=== PATIENT | female | born 1950 | race Caucasian/White ===

== ENCOUNTER → 2016-04-21 09:46 | Outpatient (CLI) | payer MEDICARE ==
[~2016-04-21 09:46] MED LIST: AVAPRO150 MG PO; BAYER CHEWABLE81 MG PO; COMBIVENT RESPIM4 GM INH; CYMBALTA60 MG PO; MULTIPLE VITAMI1 TA1 PO; NITROSTAT0.4 MG SL; OMEPRAZOLE20 M1 PO; PERCOCET 5-3251 TAB PO; PROBIOTIC1 EAC1 PO; PROTONIX40 MG PO; SYMBICORT 16010.2 GM INH; SYNTHROID88 MCG PO; TENORMIN100 MG PO; ULTRAM50 MG PO; ZETIA10 MG PO; ZOFRAN4 MG PO; ZYRTEC10 MG PO
== END | disposition home or self-care (01) ==
LOC: D.RAD 09:46
DX: K56.60 Unspecified intestinal obstruction (principal); K59.00 Constipation, unspecified

== ENCOUNTER → 2016-04-23 13:03 | Outpatient (CLI) | payer MEDICARE | END | disposition home or self-care (01) | LOC: D.CT 13:03 | DX: R10.31 Right lower quadrant pain (principal); R74.8 Abnormal levels of other serum enzymes ==

== ENCOUNTER 2016-04-30 11:17 | Inpatient (IN) | payer MEDICARE ==
[~2016-04-30] VITALS: Ht 165.1 cm; Wt 83.0 kg
[~2016-04-30 11:17] MED LIST changes: -PERCOCET 5-3251 TAB PO; -PROTONIX40 MG PO; -ZOFRAN4 MG PO
[2016-04-30] MEDS ORDERED: PERCOCET 5-3251 TAB PO (11:50)
[2016-04-30] MEDS ORDERED: ZOFRAN4 MG PO (11:51)
[2016-04-30 12:00] VITALS: BP 190/97; BMI 30.5
[2016-04-30 12:28] LABS: BASOPHILS 0.3 % (0.0-2.0); EOSINOPHILS 1.7 % (0-7); HEMATOCRIT 40.7 % (36.0-48.0); HEMOGLOBIN 13.7 g/dL (12-16); IMMATURE GRANULOCYTES 0.3 % (0-5); LYMPHOCYTES 33.2 % (15-50); MCHC 33.7 g/dL (31.0-37.0); MCV 89.3 fL (80.0-100.0); MEAN PLATELET VOLUME 9.4 fL (7.4-10.4); MONOCYTES 10.3 % (2-11); NEUTROPHILS 54.2 % (40-80); PLATELET COUNT 202 10x3/uL (130-400); RBC 4.56 10x6/uL (4.00-5.40); RDW 12.7 % (11.5-14.5); WBC 7.8 10x3/uL (4.8-10.8)
[2016-04-30 12:57] LABS: ALBUMIN 3.8 g/dL (3.4-5.0); ANION GAP 12.3 mmol/L (8-16); BILIRUBIN - TOTAL 0.42 mg/dL (0.2-1.3); CALCIUM 9.2 mg/dL (8.5-10.1); CARBON DIOXIDE 27.6 mmol/L (21.0-32.0); POTASSIUM - SERUM 3.9 mmol/L (3.5-5.1); PROTEIN - SERUM 7.2 g/dL (6.4-8.2)
--- NOTE | 2016-04-30 14:17 | NUR ---
PT ADMITTED. NG INSERTED PER RIGHT NARE WITHOUT DIFFICULTY-BLEEDING NOTED-PT STATES I HAVE NOSE BLEEDS SOMETIMES. DRAINING BROWN FLUID. IV SITED X 2 ATTEMPTED TO LEFT FOREARM. CONNECTED TO FLUIDS. PT ORDERS REVIEWED WITH PT AND SPOUSE AND VERIFIED UNDERSTANDING. CALL LIGHT IN REACH
--- NOTE | 2016-04-30 14:21 | NUR ---
SCD ON BILAT
[2016-04-30 16:35] VITALS: BP 180/105
--- NOTE | 2016-04-30 19:10 | NUR ---
BEDSIDE REPORT RECEIVED AND CARE OF PT ASSUMED. PT OUT OF ROOM AT THIS TIME TO HAVE MRI PERFORMED.
[2016-04-30 20:00] VITALS: BP 171/95
--- NOTE | 2016-04-30 20:15 | NUR ---
PT RETURNED FROM MRI. RE-CONNECTED NG TUBE AND FLUSHED WITH 60 ML OR WATER. RE-CONNECTED IV FLUIDS. WILL CONTINUE TO MONITOR FOR NEEDS.
--- NOTE | 2016-04-30 20:24 | NUR ---
HS MEDICATIONS GIVEN. WILL CONTINUE TO MONITOR FOR NEEDS.
--- NOTE | 2016-04-30 21:48 | CN ---
PATIENT NAME:BLOSSOM ALMANZA MEDICAL RECORD: [id number] : 48 LOCATION:[id number] ADMIT DATE: 04/30/16 ACCOUNT: [id number] CONSULTING PHYSICIAN: WAI WHITLEY MD REFERRING PHYSICIAN: ROBBIE DUMONT MD DATE OF CONSULTATION: 04/30/2016 Surgical Consultation REASON FOR CONSULTATION: Vomiting and abdominal pain. HISTORY OF PRESENT ILLNESS: Ms. Almanza is a 66-year-old female, who was admitted from her primary care doctor's office this morning with abdominal pain, severe epigastric pain and vomiting. The patient states that she has been having this recurrent, severe right upper quadrant and epigastric pain for the last several weeks. She saw her primary care physician a couple of weeks ago. She had a CT scan performed a week ago, which showed no acute abnormalities, but her lab work at that time revealed an elevated lipase by report, but no inflammatory process. No evidence of pancreatitis or biliary obstruction. The patient says the pain is constant and it radiates to her back. She has nausea and vomiting. She has had constipation. Her last bowel movement was last night. She denies any hematemesis. She denies any melena or hematochezia. She denies any dysuria. She had an EGD performed 3 or 4 years ago, which showed some reflux esophagitis by report. She also had a colonoscopy. She says she had a couple of benign polyps. This was performed in [place]. She had lab work today at the office, which again revealed a recurrently elevated lipase. PAST MEDICAL HISTORY: Hypothyroidism, hypertension, depression, gastroesophageal reflux disease, arthritis, chronic back pain, asthma. PAST SURGICAL HISTORY: Hysterectomy, laparoscopic appendectomy, tonsillectomy. She has had knee and shoulder surgery. SOCIAL HISTORY: She is a former smoker. She drinks alcohol socially. FAMILY HISTORY: Denies any family history of cardiac disease. She has several family members on her mother's side who of smoker-related lung cancer. ALLERGIES: PENICILLIN, CODEINE, MEDROL, SINGULAR, NORCO, PHENERGAN, NSAIDS. MEDICATIONS: Include Synthroid, Avapro, atenolol, Ventolin, albuterol, Nitrostat, tramadol, Zofran, Percocet, aspirin, Cymbalta, omeprazole, Zetia and Zyrtec. REVIEW OF SYSTEMS: A 12-point review of systems was obtained, pertinent positive and negative as per the HPI. PHYSICAL EXAMINATION: VITAL SIGNS: Temperature 98.4, heart rate 64, respirations 18, blood pressure 190/97, satting 99% on room air. GENERAL: Well-developed, well-nourished female, in moderate distress. EYES: Extraocular muscles intact. Sclerae are anicteric. EARS, NOSE AND THROAT: Normal dentition. Mucous membranes dry. CARDIOVASCULAR: Normal sinus rhythm. LUNGS: Clear auscultation bilaterally. CONSULT REPORT [id number] CAMIBLOSSOM STACI ABDOMEN: Soft. She is moderately tender to palpation with positive rebound and guarding. Hypoactive bowel sounds. No palpable hernia defects. SKIN: Warm and dry with normal turgor. EXTREMITIES: She is neurovascularly intact. Mild lower extremity edema. NEUROLOGIC: GCS of 15 with no focal deficit. LABORATORY DATA: Reviewed. Please see electronic medical record for full list of laboratory values. Lipase is mildly elevated ____, amylase 48. . IMAGING: CT abdomen and pelvis from 04/23/2016, again images personally reviewed, which showed no acute inflammatory process. There is no evidence of ____. There is minimal dilatation of the biliary system. The patient is status post cholecystectomy. IMPRESSION: A 66-year-old female with abdominal pain and recurrent elevated lipase consistent with pancreatitis. PLAN: 1. The patient admitted to med-surg. 2. NG tube is in place, continue to low intermittent wall suction. 3. IV fluid resuscitation. 4. IV narcotics for pain control. 5. GI consultation for evaluation of pancreatitis, may be medication related. 6. Reevaluate GI consult for evaluation of possible upper endoscopy. 7. IV PPIs. Also, we will order MRCP. TRANSINT:[id number] Voice Confirmation ID: [id number] DOCUMENT ID: [id number] WAI WHITLEY MD at 2148 CC: [id number] DICTATION DATE: 04/30/16 1510 WINDOWS SOFTWARE ENGINEER: 04/30/162003 ADM IN [facility] [address] [place] [address]
--- NOTE | 2016-04-30 22:04 | NUR ---
GAVE ZOFRAN IVP PER PRN ORDER, PER PT REQUEST FOR NAUSEA. WILL CONTINUE TO MONITOR FOR NEEDS.
[2016-05-01 01:00] VITALS: BP 194/99
[2016-05-01 05:00] VITALS: BP 174/88
--- NOTE | 2016-05-01 05:02 | NUR ---
ALL NEEDS MET DURING SHIFT. CONTINUE PLAN OF CARE.
[2016-05-01 05:34] LABS: BASOPHILS 0.1 % (0.0-2.0); EOSINOPHILS 1.4 % (0-7); HEMATOCRIT 40.4 % (36.0-48.0); HEMOGLOBIN 13.5 g/dL (12-16); IMMATURE GRANULOCYTES 0.3 % (0-5); LYMPHOCYTES 31.5 % (15-50); MCH 29.7 pg (26.0-34.0); MCHC 33.4 g/dL (31.0-37.0); MCV 88.8 fL (80.0-100.0); MEAN PLATELET VOLUME 9.4 fL (7.4-10.4); NEUTROPHILS 57.7 % (40-80); PLATELET COUNT 206 10x3/uL (130-400); RBC 4.55 10x6/uL (4.00-5.40); RDW 12.7 % (11.5-14.5); WBC 7.8 10x3/uL (4.8-10.8)
[2016-05-01 06:08] LABS: ALBUMIN 3.4 g/dL (3.4-5.0); ANION GAP 11.4 mmol/L (8-16); BILIRUBIN - TOTAL 0.49 mg/dL (0.2-1.3); CARBON DIOXIDE 28.2 mmol/L (21.0-32.0); POTASSIUM - SERUM 3.6 mmol/L (3.5-5.1); PROTEIN - SERUM 6.7 g/dL (6.4-8.2)
--- NOTE | 2016-05-01 07:47 | NUR ---
PATIENT ALERT/ORIENT X4. NG TUBE ON LOW INTERMISSION, RIGHT NARE. IV LW D5.5 RUNNING AT 125/CC LEFT WRIST. DENIES ANY NAUSEA/PAIN AT THIS TIME
[2016-05-01 08:11] VITALS: BP 143/97
[2016-05-01 11:40] VITALS: BP 135/81
--- NOTE | 2016-05-01 12:05 | NUR ---
IV access-#22 catheter in right hand x 1 attempt. Angelina Salmeron RN
--- NOTE | 2016-05-01 12:49 | NUR ---
RESTING QUIETLY AT PRESENT DENIES ANY NEEDS AT THIS TIME FAMILY AT BEDSIDE.
--- NOTE | 2016-05-01 13:04 | NUR ---
Patient Name: BLOSSOM ALMANZA Admission Status: Urgent Accout number: [id number] Admission Date: 04-30-2016 : 1950 Admission Diagnosis: Attending: AVN Current LOS: 1 Anticipated DC Date: 05-04-2016 Planned Disposition: Home or Self Care Primary Insurance: [facility] Discharge Planning Comments: CM MET WITH PATIENT AND SPOUSE (AGUS) REGARDING D/C NEEDS AND PLANS. PATIENT STATED SHE LIVES WITH HER SPOUSE AND HE WILL DRIVE HER HOME AT DISCHARGE. THERE ARE NO STEPS OR STAIRS AT THERE HOUSE PER SPOUSE. PATIENT STATED SHE IS INDEPENDENT WITH HER CARE AND HAS NO DME AT HOME. PATIENTS PCP IS DR. CARVER AND PHARMACY IS [facility]. PATIENT REFUSES HOME HEALTH AND HAS NO OTHER NEEDS AT THIS TIME. CM WILL CONTINUE TO FOLLOW PATIENT WITH D/C NEEDS AND PLANS. PCP DR. WEN ROB[facility]- [phone] AGUS (SPOUSE) [phone] Loan Coordinator: Betzy Egan Is the patient Alert and Oriented? Yes 0 * How many steps to enter\exit or inside your home? 0 0 * PCP DR. CARVER 0 * Pharmacy [facility] 0 * Preadmission Environment Home with Family 0 * ADLs Independent 0 * Equipment None 0 * List name and contact numbers for known caregivers / representatives who currently or will assist patient after discharge: AGUS [phone] * Community resources currently utilized None 0 * Additional services required to return to the preadmission environment? Yes 0 * Can the patient safely return to the preadmission environment? Yes 0 * Has this patient been hospitalized within the prior 30 days at any hospital? No 0 Grand Total: 0
--- NOTE | 2016-05-01 13:34 | NUR ---
PRN ZOFRAN GIVEN FOR NAUSEA
[2016-05-01 14:04] VITALS: Ht 165.1 cm; Wt 83.0 kg
--- NOTE | 2016-05-01 14:12 | NUR ---
PATIENT RESTING WELL. STATES RELIEF FROM PRN ZOFRAN
--- NOTE | 2016-05-01 14:21 | NUR ---
DR. DUMONT INTO SEE PATIENT. NEW ORDERS FOR CT OF THE ABDOMEN/PELVIS WITH CONTRAST.
--- NOTE | 2016-05-01 15:25 | NUR ---
PATIENT TAKEN DOWN FOR CT OF ABDOMEN AND PELVIS.
--- NOTE | 2016-05-01 15:54 | NUR ---
PATIENT BACK FROM CT OF ABDOMEN/PELVES. DR. BROWN HERE. NEW ORDERS RECEIVED TO REMOVE NG TUBE
--- NOTE | 2016-05-01 15:59 | NUR ---
NG TUBE REMOVED WITHOUT DIFFICULTY
[2016-05-01 16:13] VITALS: BP 168/85
--- NOTE | 2016-05-01 17:51 | NUR ---
PATIENT TOLERATING ICE CHIPS. NO C/O OF NAUSEA.
--- NOTE | 2016-05-01 20:00 | NUR ---
ASSESSMENT PER FLOWSHEET. IV PATENT RT HAND OF D51/2NS AT 125CC'S/HR. ZOFRAN GTT AT 4.7CC'S/HR. PT IS NPO EXCEPT FOR ICE CHIPS. SR UP X2 CALL LIGHT WITHIN REACH. DENIES NEEDS.
[2016-05-01 21:00] VITALS: BP 163/93
--- NOTE | 2016-05-01 22:00 | NUR ---
MEDS GIVEN PER MAY. SR UP X2 CALL LIGHT WITHIN REACH.
[2016-05-02 00:30] VITALS: BP 154/85
--- NOTE | 2016-05-02 02:45 | NUR ---
EYES CLOSED RESPIRATIONS WITH EASE AND UNLABORED.
[2016-05-02 05:00] VITALS: BP 131/83
[2016-05-02 05:16] LABS: BASOPHILS 0.2 % (0.0-2.0); EOSINOPHILS 1.6 % (0-7); HEMATOCRIT 41.2 % (36.0-48.0); HEMOGLOBIN 13.7 g/dL (12-16); IMMATURE GRANULOCYTES 0.2 % (0-5); LYMPHOCYTES 31.8 % (15-50); MCH 29.7 pg (26.0-34.0); MCHC 33.3 g/dL (31.0-37.0); MCV 89.4 fL (80.0-100.0); MEAN PLATELET VOLUME 9.9 fL (7.4-10.4); NEUTROPHILS 55.2 % (40-80); PLATELET COUNT 234 10x3/uL (130-400); RBC 4.61 10x6/uL (4.00-5.40); RDW 12.7 % (11.5-14.5); WBC 9.1 10x3/uL (4.8-10.8)
--- NOTE | 2016-05-02 05:45 | NUR ---
MEDS GIVEN PER MAR.
[2016-05-02 06:01] LABS: ALBUMIN 3.6 g/dL (3.4-5.0); ANION GAP 12.3 mmol/L (8-16); BILIRUBIN - TOTAL 0.56 mg/dL (0.2-1.3); CALCIUM 9.4 mg/dL (8.5-10.1); CARBON DIOXIDE 29.4 mmol/L (21.0-32.0); CREATININE - SERUM 1.1 mg/dL (0.6-1.3); PROTEIN - SERUM 6.5 g/dL (6.4-8.2)
[2016-05-02 06:04] LABS: POTASSIUM - SERUM 4.7 mmol/L (3.5-5.1)
--- NOTE | 2016-05-02 07:59 | NUR ---
PT ASSESSMENT COMPLETE, ALERT AND ORIENTED, IV R HAND D5 03/31 @125, PT SITING IN BED TALKING VOICES NO COMPLAINTS AT THIS TIME. CALL LIGHT WITHIN REACH, WILL CONTINUE PLAN OF CARE.
[2016-05-02 08:10] VITALS: BP 146/81
--- NOTE | 2016-05-02 09:45 | NUR ---
AMBULATING IN HALLWAY INDEPENTLY AT THIS TIME. ALERT AND ORIENTED X4 WITH RESPIRATIONS EVEN AND NON LABORED. DENIES NEEDS AT THIS TIME. WILL CONTINUE WITH PLAN OF CARE.
--- NOTE | 2016-05-02 09:56 | NUR ---
PT UP IN CHAIR AFTER WALKING AROUND THE NURSES STATION 2 TIMES, WILL CONTINUE TO MONITOR, CALL LIGHT IN REACH.
--- NOTE | 2016-05-02 11:15 | NUR ---
PT CAMILO MARLEY ORIENTED X4, VISTING WITH HER , PT BACK IN BED RESTING. PAIN AT A 5, CALL LIGHT IN REACH, WILL CONTINUE TO MONITOR
[2016-05-02 12:05] VITALS: BP 127/81
--- NOTE | 2016-05-02 12:09 | NUR ---
PT COMPLAINS OF PAIN, LEVEL 6. ADMINISTERED TYLENOL PER ORDER WILL CONTINUE TO MONITOR
--- NOTE | 2016-05-02 14:00 | NUR ---
UP IN CHAIR AT THIS TIME. AMBULATES AROUND THE ROOM INDEPENDENTLY. DENIES NEEDS. CALL LIGHT IN REACH, WILL CONTINUE WITH PLAN OF CARE.
[2016-05-02 16:14] VITALS: BP 164/83
--- NOTE | 2016-05-02 16:15 | NUR ---
AMBULATING AROUND THE HOSPITAL INDEPENDENTLY AT THIS TIME. WILL CONTINUE WITH PLAN OF CARE.
--- NOTE | 2016-05-02 18:35 | NUR ---
REMAINS UP IN THE CHAIR. DENIES NEEDS. CALL LIGHT IN REACH, WILL CONTINUE WITH PLAN OF CARE.
[2016-05-02 19:00] VITALS: BP 127/63
--- NOTE | 2016-05-03 04:07 | NUR ---
PT LAYING IN BED NO DISTRESS OBSERVED CALL LIGHT IN REACH SRX2 BED LOW AND LOCKED WILL MONITOR
[2016-05-03 06:07] LABS: BASOPHILS 0.5 % (0.0-2.0); EOSINOPHILS 2.5 % (0-7); HEMATOCRIT 37.5 % (36.0-48.0); HEMOGLOBIN 12.7 g/dL (12-16); IMMATURE GRANULOCYTES 0.3 % (0-5); MCHC 33.9 g/dL (31.0-37.0); MCV 88.7 fL (80.0-100.0); MEAN PLATELET VOLUME 9.5 fL (7.4-10.4); MONOCYTES 10.5 % (2-11); NEUTROPHILS 47.2 % (40-80); PLATELET COUNT 190 10x3/uL (130-400); RBC 4.23 10x6/uL (4.00-5.40); RDW 12.7 % (11.5-14.5)
[2016-05-03 06:10] LABS: WBC 6.4 10x3/uL (4.8-10.8)
[2016-05-03 07:32] LABS: ALBUMIN 3.1 g/dL (3.4-5.0); ANION GAP 12.7 mmol/L (8-16); BILIRUBIN - TOTAL 0.45 mg/dL (0.2-1.3); CALCIUM 8.6 mg/dL (8.5-10.1); CARBON DIOXIDE 25.8 mmol/L (21.0-32.0); CREATININE - SERUM 1.1 mg/dL (0.6-1.3); PROTEIN - SERUM 6.1 g/dL (6.4-8.2)
[2016-05-03 07:34] LABS: POTASSIUM - SERUM 3.5 mmol/L (3.5-5.1)
--- NOTE | 2016-05-03 07:50 | NUR ---
PT UP IN CHAIR, NO COMPAINTS AT THIS TIME, WILL CONTINUE TO MONITOR. CALL LIGHT IN REACH.
--- NOTE | 2016-05-03 08:53 | NUR ---
PT MEDS GIVEN PER eMAR, TYLENOL ADMINISTERED FOR PAIN LEVEL 5, ASSESSMENT COMPLETE, NO COMPLAINTS AT THIS TIME, WILL CONTINUE TO MONITOR, CALL LIGHT IN REACH,
[2016-05-03 08:55] VITALS: BP 132/73
--- NOTE | 2016-05-03 12:21 | NUR ---
PT UP IN CHAIR EATING LUNCH, NO COMPLAINTS AT THIS TIME, AT BEDSIDE. CALL LIGHT WITHIN REACH, WILL CONTINUE TO MONITOR
[2016-05-03 13:04] VITALS: BP 144/75
--- NOTE | 2016-05-03 13:28 | NUR ---
UP IN HALLWAY PER SELF. REPORTS SOME "GAS PAINS" AND WANTS TO SEE IF SHE CAN GET THINGS MOVING. DENIES NEEDS.
--- NOTE | 2016-05-03 15:00 | NUR ---
PT SITTING IN BED, AT BEDSIDE, DENIES NEEDS AT THIS TIME. WILL CONTINUE TO MONITOR.
[2016-05-03 16:03] VITALS: BP 164/80
--- NOTE | 2016-05-03 18:11 | NUR ---
PT RESTING IN BED, DENIES NEEDS, CALL LIGHT IN REACH,
[2016-05-03 20:38] VITALS: BP 144/72
[2016-05-04] VITALS: BP 139/74
[2016-05-04 04:00] VITALS: BP 114/69
[2016-05-04 05:07] LABS: BASOPHILS 0.3 % (0.0-2.0); EOSINOPHILS 3.1 % (0-7); HEMATOCRIT 35.9 % (36.0-48.0); HEMOGLOBIN 12.1 g/dL (12-16); IMMATURE GRANULOCYTES 0.3 % (0-5); LYMPHOCYTES 33.8 % (15-50); MCH 29.9 pg (26.0-34.0); MCHC 33.7 g/dL (31.0-37.0); MCV 88.6 fL (80.0-100.0); MEAN PLATELET VOLUME 9.9 fL (7.4-10.4); MONOCYTES 11.6 % (2-11); NEUTROPHILS 50.9 % (40-80); PLATELET COUNT 192 10x3/uL (130-400); RBC 4.05 10x6/uL (4.00-5.40); RDW 12.7 % (11.5-14.5); WBC 7.1 10x3/uL (4.8-10.8)
[2016-05-04 05:29] LABS: ALBUMIN 3.1 g/dL (3.4-5.0); ANION GAP 12.2 mmol/L (8-16); BILIRUBIN - TOTAL 0.5 mg/dL (0.2-1.3); CALCIUM 8.5 mg/dL (8.5-10.1); CARBON DIOXIDE 27.4 mmol/L (21.0-32.0); POTASSIUM - SERUM 3.6 mmol/L (3.5-5.1); PROTEIN - SERUM 6.3 g/dL (6.4-8.2)
--- NOTE | 2016-05-04 07:30 | NUR ---
PT SITTING UP IN BED, DENIES NEEDS, CALLL LIGHT IN REACH, WILL CONTINUE TO MONITOR
--- NOTE | 2016-05-04 08:45 | NUR ---
UP IN CHAIR INDEPENDENTLY AT THIS TIME. PAIN 4/10 ABDOMINALLY, BUT PT DENIES NEEDING ANYTHING PRN FOR PAIN. CONTINUES A CLEAR LIQUID DIET WITHOUT NAUSEA OR VOMITING. PT AMBULATES AND SELF POSITIONS IN THE BED FOR COMFORT. CALL LIGHT IN REACH, WILL CONTINUE WITH PLAN OF CARE.
[2016-05-04 09:00] VITALS: BP 160/89
[2016-05-04 12:45] VITALS: BP 156/84
--- NOTE | 2016-05-04 14:56 | NUR ---
PT STATES SHE HAD 2 LOOSE WATERY STOOLS, NO OTHER COMPLAINTS AT THIS TIME, WILL CONTINUE TO MONITOR
[2016-05-04 16:28] VITALS: BP 136/88
[2016-05-04 19:00] VITALS: BP 167/77
--- NOTE | 2016-05-04 22:56 | NUR ---
PT LAYING IN BED NO DISTRESS OBSERVED CALL LIGHT IN REACH SRX2 BED LOW AND LOCKED PT UP AMBULATORY WITH NO ASSISTANCE NEEDED RESPERATIONS EVEN AND UNLABORED ON ROOM AIR WILL MONITOR
[2016-05-05] VITALS: BP 157/79
[2016-05-05 04:00] VITALS: BP 158/86
--- NOTE | 2016-05-05 05:43 | NUR ---
PT LAYING IN BED NO DISTRESS OBSERVED CALL LIGHT IN REACH SRX2 WILL MONITOR
[2016-05-05 05:45] LABS: BASOPHILS 0.5 % (0.0-2.0); EOSINOPHILS 3.3 % (0-7); HEMATOCRIT 37.5 % (36.0-48.0); HEMOGLOBIN 12.7 g/dL (12-16); IMMATURE GRANULOCYTES 0.2 % (0-5); LYMPHOCYTES 33.7 % (15-50); MCH 29.7 pg (26.0-34.0); MCHC 33.9 g/dL (31.0-37.0); MCV 87.6 fL (80.0-100.0); MEAN PLATELET VOLUME 9.7 fL (7.4-10.4); MONOCYTES 9.7 % (2-11); NEUTROPHILS 52.6 % (40-80); PLATELET COUNT 224 10x3/uL (130-400); RBC 4.28 10x6/uL (4.00-5.40); RDW 12.8 % (11.5-14.5); WBC 6.6 10x3/uL (4.8-10.8)
[2016-05-05 06:25] LABS: ALBUMIN 3.3 g/dL (3.4-5.0); BILIRUBIN - TOTAL 0.5 mg/dL (0.2-1.3); CALCIUM 8.8 mg/dL (8.5-10.1); PROTEIN - SERUM 6.7 g/dL (6.4-8.2)
--- NOTE | 2016-05-05 07:20 | NUR ---
THIS PATIENT IS AWAKE AND ALERT, SITTING UP IN HER BED, SEMI FOWLERS. SHE UNDERSTANDS HER PLAN OF CARE AND DENIES NEEDS AT THIS TIME. SHE UNDERSTANDS THAT SHE IS HAVING THE EGD DUE TO SOME THICKENING IN THE INTESTINAL WALL AT THE DUODENUM AND EXPECT BIOPSIES WILL BE TAKEN. SHE IS NPO AND READY ANGLIN THE DR IS PER HER STATEMENT.
[2016-05-05 08:59] VITALS: BP 162/99
--- NOTE | 2016-05-05 09:25 | NUR ---
PATIENT GIVEN HER ORAL MEDICATIONS AFTER TALKING WITH THE GI LAB STAFF. EXPECT TO HAVE HER PROCEDURE THIS AFTERNOON AROUND 3. REPORTED THIS TO THE PATIENT. SHE REMAINS WITHOUT NEEDS/ COMPLAINTS.
[2016-05-05 12:41] VITALS: BP 156/89
--- NOTE | 2016-05-05 13:33 | NUR ---
NUTRITION MONITORING & EVAL CHART REVIEWED. PT CURRENTLY NPO. WILL MONITOR DIET ADVANCEMENT, PT PROGRESS. RD FOLLOWING
[2016-05-05 16:08] VITALS: BP 163/49
--- NOTE | 2016-05-05 16:57 | NUR ---
PATIENT OFF THE UNIT TO GI LAB
[2016-05-05 19:00] VITALS: BP 153/85
--- NOTE | 2016-05-05 19:11 | NUR ---
PATIENT BACK FROM HER EGD. NEW ORDERS RECEIVED. NO DISTRESS OR NEEDS NOTED.
--- NOTE | 2016-05-05 19:30 | NUR ---
RECIEVED SHIFT REPORT. PT IS LYING IN BED. ALERT AND ORIENTED AND ABLE TO VERBALIZE NEEDS. IV IS PATENT AND SALINE LOC AT THIS TIME. PT IS AMBULATORY BUT WAS INSTRUCTED TO CALL FOR ANY ASSISTANCE NEEDED. PT STATES PAIN IS 4/10. NO NEEDS ARE VERBALIZED AT THIS TIME. WILL CONTINUE TO MONITOR. SIDE RAILS ARE UP X 2. BED IS IN LOWEST POSITION. CALL LIGHT IS WITHIN REACH.
--- NOTE | 2016-05-05 20:37 | NUR ---
SHIFT ASSESSMENT COMPLETED. NIGHT MEDS GIVEN WITH NO PROBLEMS. NO NEEDS ARE VOICED. WILL MONITOR. SIDE RAILS X 2. BED LOW. CALL LIGHT IN REACH.
[2016-05-06 04:00] VITALS: BP 141/85
[2016-05-06 04:56] LABS: BASOPHILS 0.3 % (0.0-2.0); EOSINOPHILS 2.1 % (0-7); HEMATOCRIT 37.1 % (36.0-48.0); HEMOGLOBIN 12.8 g/dL (12-16); IMMATURE GRANULOCYTES 0.3 % (0-5); LYMPHOCYTES 33.9 % (15-50); MCHC 34.5 g/dL (31.0-37.0); MCV 87.1 fL (80.0-100.0); MEAN PLATELET VOLUME 9.9 fL (7.4-10.4); MONOCYTES 8.3 % (2-11); NEUTROPHILS 55.1 % (40-80); PLATELET COUNT 228 10x3/uL (130-400); RBC 4.26 10x6/uL (4.00-5.40); RDW 12.8 % (11.5-14.5)
[2016-05-06 04:58] LABS: WBC 8.6 10x3/uL (4.8-10.8)
[2016-05-06 05:15] LABS: ALBUMIN 3.2 g/dL (3.4-5.0); ANION GAP 11.3 mmol/L (8-16); BILIRUBIN - TOTAL 0.5 mg/dL (0.2-1.3); CARBON DIOXIDE 26.9 mmol/L (21.0-32.0); POTASSIUM - SERUM 3.2 mmol/L (3.5-5.1); PROTEIN - SERUM 6.3 g/dL (6.4-8.2)
--- NOTE | 2016-05-06 08:09 | NUR ---
PATIENT SITTING UP IN CHAIR IN ROOM. ALERT/ORIENT X4. SALINE LOCK LEFT ARM. CALL LIGHT WITHIN REACH. VOICES NO NEEDS AT THIS TIME
[2016-05-06 08:15] VITALS: BP 158/95
--- NOTE | 2016-05-06 10:43 | NUR ---
PATIENT UP WALKING AROUND HALLWAY.
[2016-05-06] MEDS ORDERED: PROTONIX40 MG PO (11:41)
--- NOTE | 2016-05-06 11:46 | NUR ---
DR. CARVER INTO SEE PATIENT NEW ORDER FOR DISCHARGE TO HOME
--- NOTE | 2016-05-06 13:24 | NUR ---
CM REASSESSMENT NOTE: PATIENT IS DISCHARGING HOME TODAY- DRIVING HER. PATIENT REFUSED HOME HEALTH OR ANY OTHER NEEDS.
--- NOTE | 2016-05-06 15:18 | NUR ---
PATIENT GIVEN DISCHARGE INSTRUCTIONS. PATIENT SIGNED DISCHARGE. PATIENT HELPED OUT BY STAFF TO CAR
--- NOTE | 2016-05-08 18:05 | OP ---
PATIENT NAME: BLOSSOM ALMANZA MEDICAL RECORD: [id number] :[birth year] LOCATION:[id number] ADMISSION DATE:04/30/16 SURGEON: NITZA BROWN MD DATE OF OPERATION: 05/05/2016 ATTENDING PHYSICIAN: Ana Carver MD. REFERRING PHYSICIAN: Ricardo Li MD. 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 CT on 04/03/2016 was unremarkable. She had a Gastrografin enema on 04/21/2016. She has seen and evaluated in clinic. She had a mildly elevated lipase and on repeat studies, lipase has been consistently normal. Repeat CT scan of the abdomen and pelvis on 05/01/2016 showed no evidence of pancreatitis, there was mucosal thickening in the distal stomach and a prior cholecystectomy and hysterectomy were noted. MRCP on 04/30/2016 showed unremarkable noncontrasted appearance of the pancreas with no peripancreatic fluid collection seen, status post cholecystectomy without intra or extrahepatic biliary ductal dilatation and no evidence of cholelithiasis, bilateral renal cysts were noted. She presents for inpatient EGD to further evaluate the abnormal distal gastric wall thickening noted on CT scan. PREMEDICATIONS: Total IV anesthesia (propofol 130 mg). INSTRUMENT: Olympus video gastroscope. PROCEDURE AND FINDINGS: After receiving informed consent, Ms. Almanza's posterior pharynx was anesthetized with Cetacaine spray, placed in left lateral decubitus position and sedated as per anesthesia. After achieving adequate level of sedation, gastroscope was introduced per orally and advanced to the duodenum without difficulty. The esophageal mucosa was without erythema, ulcers, strictures, or masses, appeared normal down the GE junction. Small hiatal hernia is present. Gastric mucosa was notable from multiple superficial erosions noted in the antrum with patchy antral erythema and antral biopsies were obtained to rule out Helicobacter pylori. No lesions were seen in the body of the stomach or along the incisura, in the cardia or fundus. Pylorus was patent and competent. The proximal duodenal bulbar mucosa was mildly erythematous in a patchy distribution. Second portion of duodenum appeared normal. Biopsies were obtained from the second portion of duodenum to rule out celiac disease. Gastroscope was then withdrawn. Ms. Almanza tolerated the procedure well, no immediate complications. ASSESSMENT: 1. Small hiatal hernia. 2. [id number] erosive gastritis, status post antral biopsy. 3. Mild duodenitis. RECOMMENDATIONS: 1. Follow up histopathology. 2. Advance diet. 3. Recommend outpatient screening colonoscopy. TRANSINT:[id number] Voice Confirmation ID: [id number] DOCUMENT ID: [id number] OPERATIVE REPORT [id number] BLOSSOM ALMANZA TERRI MD at 1805 CC: RICARDO LI MD and ANA CARVER MD [id number] DICTATION DATE: 05/05/161735 ANDROID ARCHITECT: 05/05/162039 DIS IN 05/06/16 [facility] [address] [place] [address]
== END 2016-05-06 15:29 | disposition home or self-care (01) | DRG 392 ==
LOC: D.MS 11:17
PROVIDERS: Emergency Medicine; ADMIT Family Medicine
PROC: 0D9670Z Drainage of Stomach with Drainage Device, Via Natural or Artificial Opening (ICD-10-PCS; principal; 2016-04-30)
PROC: 0DB68ZX Excision of Stomach, Via Natural or Artificial Opening Endoscopic, Diagnostic (ICD-10-PCS; 2016-05-05)
PROC: 0DB98ZX Excision of Duodenum, Via Natural or Artificial Opening Endoscopic, Diagnostic (ICD-10-PCS; 2016-05-05)
DX: K29.60 Other gastritis without bleeding (principal); K56.7 Ileus, unspecified; K59.09 Other constipation; I10 Essential (primary) hypertension; K44.9 Diaphragmatic hernia without obstruction or gangrene; K29.80 Duodenitis without bleeding; R79.89 Other specified abnormal findings of blood chemistry

== ENCOUNTER 2016-09-22 16:44 | Observation (INO) | payer MEDICARE ==
[~2016-09-22] VITALS: Ht 165.1 cm; Wt 81.8 kg
--- NOTE | ~2016-09-22 | HEMODYNAMI ---
PATIENT:BLOSSOM ALMANZA MEDICAL RECORD: [id number] : 48 LOCATION:[place] [address] ADMISSION DATE: 09/22/16 Generatedon:09/23/201610:35 Patient name: BLOSSOM ALMANZA Patient #: [id number] SSN: DO B: 1950 Date of study: 09/23/2016 Page: Of Hemodynamic Procedure Report Patient Data Patient Demographics Procedure consent was obtained First Name: BLOSSOM Gender: Female Last Name: CAMI : 1950 [facility] Initial: STACI Age: 66 year(s) Patient #: [id number] Race: Unknown Additional ID: [id number] Contact details [address]: [address] [place] [address] State: [place] City: [place] Zip code: [address] Past Medical History Allergies Allergen Reaction Date Comments Reported Codeine 01/22/2016 Other allergy 01/22/2016 Porter NSAIDs 01/22/2016 Penicillins 01/22/2016 Other allergy 01/22/2016 Singulair, Phenergan, Solu-Medrol Admission Admission Data Admission Date: 09/22/2016 Admission Time: 19:56 Room #: [facility] Weight (lbs.): 180.78 Weight (kg.): 82 Procedure Procedure Types Cath Procedure Diagnostic Procedure [facility] w/Coronaries PCI Procedure Coronary Stent Initial Miscellaneous Procedures Moderate Sedation up to 15 minutes Procedure Description Procedure Date Procedure Date: 09/23/2016 Procedure Start Time: 10:20 Procedure End Time: 10:34 Procedure Staff Name Function Rafal Barkley MD Performing Physician Erin Owens RN Nurse Wilson Brian RT Monitor El Colon RT Scrub Procedure Data Cath Procedure Fluoroscopy Diagnostic fluoroscopy Total fluoroscopy Time: 3.2 time: 3.2 min min Diagnostic fluoroscopy Total fluoroscopy dose: 100 dose: 100 mGy mGy Contrast Material Contrast Material Type Amount (ml) Isovue 300 75 Entry Location Entry Primary Successful Side Size Upsize Upsize Entry Closure Salcedo ccessful Closure Location (Fr) 1 (Fr) 2 (Fr) Remarks Device Remarks Radial Right 6 Fr Mechanical artery Short Compression Estimated blood loss: 10 ml Diagnostic catheters Device Type Used For End Catheter Placement Diagnostic Terumo 5Fr Procedure [place] 110cm catheter Procedure Complications No complications Procedure Medications Medication Administration Route Dosage Oxygen NC 2 l/min Heparin Flush Bag added to field 2 bags (1000units/500ml NS) Lidocaine 2% added to field 20 Radial Cocktail added to field 1 syringe (Verapomil 2mg/Nitro 400mcg/Heparin 1500units) Versed I.V. 1 mg Fentanyl I.V. 50 mcg Versed I.V. 1 mg Fentanyl I.V. 50 mcg Radial Cocktail I.A. 1 syringe (Verapomil 2mg/Nitro 400mcg/Heparin 1500units) Versed I.V. 1 mg Fentanyl I.V. 50 mcg Heparin Bolus I.V. 4000 units Integrilin (Bolus I.V. 7.3 ml 2mg/ml) Plavix P.O. 600 mg Hemodynamics Rest Heart Rate: 67 (bpm) Snapshots Pre Cath Intra NCS Post Cath Vital Signs Time Heart Resp SPO2 NIBP (mmHg) Rhythm Pain Sedation Rate (ipm) (%) Status Level (bpm) 9:52:31 72 17 98 Measuring NSR 0 (11) 10(A) , No pain 9:52:54 74 16 99 202/118(164) NSR 0 (11) 10(A) , No pain 9:57:18 68 19 98 184/95(151) NSR 0 (11) 10(A) , No pain 10:01:36 64 16 97 168/98(144) NSR 0 (11) 10(A) , No pain 10:05:50 65 19 95 156/93(133) NSR 0 (11) 10(A) , No pain 10:10:00 67 19 95 156/91(115) NSR 0 (11) 10(A) , No pain 10:14:10 61 18 95 147/92(112) NSR 0 (11) 10(A) , No pain 10:18:24 64 16 96 124/72(99) NSR 0 (11) 10(A) , No pain 10:22:30 63 19 95 103/69(78) NSR 0 (11) 9(A) , No pain 10:26:30 63 18 97 114/63(85) NSR 0 (11) 9(A) , No pain 10:30:33 63 18 98 116/67(82) NSR 0 (11) 9(A) , No pain 10:32:28 64 19 99 118/64(86) NSR 0 (11) 10(A) , No pain Medications Time Medication Route Dose Verified Delivered Reason Note s Effectiveness by by 9:56:18 Oxygen NC 2 l/min Rafal Erin Per physician Rubia Owens RN 9:56:26 Heparin Flush added 2 bags Rafal Lyles used for Bag to Rubia Barkley MD procedure (1000units/500ml field NS) 9:56:34 Lidocaine 2% added 20ml Rafal Rafal used for to vial Rubia Barkley MD procedure field 9:56:44 Radial Cocktail added 1 Rafal Rafal used for (Verapomil to syringe Rubia Barkley MD procedure 2mg/Nitro field 400mcg/Heparin 1500units) 10:16:01 Versed I.V. 1 mg Rafal Erin for sedation Rubia Owens RN 10:16:10 Fentanyl I.V. 50 mcg Rafal Erin for sedation Rubia Owens RN 10:18:11 Versed I.V. 1 mg Rafal Erin for sedation Rubia Owens RN 10:18:18 Fentanyl I.V. 50 mcg Rafal Erin for sedation Rubia Owens RN 10:20:03 Versed I.V. 1 mg Rafal Erin for sedation Rubia Owens RN 10:20:15 Fentanyl I.V. 50 mcg Rafal Erin for sedation Rubia Owens RN 10:20:56 Radial Cocktail I.A. 1 Rafal Rafal for (Verapomil syringe Rubia Barkley MD vasodilation 2mg/Nitro 400mcg/Heparin 1500units) 10:26:52 Heparin Bolus I.V. 4000 Rafal Erin for dose units Rubia Owens RN anticoagulation verified wtih dr barkley 10:28:15 Integrilin I.V. 7.3 ml Rafal Erin for wast ed (Bolus 2mg/ml) Rubia Owens RN antiplatelet 2.7 ml therapy 10:32:38 Plavix P.O. 600 mg Rafal Owens RN antiplatelet therapy Procedure Log Time Note 9:15:53 El Colon RT(R) sent for patient. Start room use. 9:29:15 Time tracking: Regular hours 9:29:19 Plan of Care:Hemodynamics will remain stable., Cardiac rhythm will remain stable., Comfort level will be maintained., Respiratory function will remain adequate., Patient/ family verbilizes understanding of procedure., Procedure tolerated without complication., Recovers from procedure without complications.. 9:41:41 Patient received from PCU to CCL 3 Alert and oriented. Tansferred to table in Supine position. 9:41:42 Warm blankets applied, and alejandra hugger turned on for patient comfort. 9:41:43 Correct patient and procedure confirmed by team. 9:41:44 Signed procedure consent form obtained from patient. 9:41:45 ECG and BP/O2 sat monitors applied to patient. 9:50:42 Vital chart was started 9:56:18 Oxygen 2 l/min NC was administered by Erin Owens RN; Per physician; 9:56:26 Heparin Flush Bag (1000units/500ml NS) 2 bags added to field was administered by Rafal Barkley MD; used for procedure; 9:56:34 Lidocaine 2% 20ml vial added to field was administered by Rafal Barkley MD; used for procedure; 9:56:44 Radial Cocktail (Verapomil 2mg/Nitro 400mcg/Heparin 1500units) 1 syringe added to field was administered by Rafal Barkley MD; used for procedure; 9:58:01 Baseline sample Acquired. 9:58:10 Rhythm: sinus rhythm 9:58:13 Full Disclosure recording started 9:58:54 H&P Date Dictated: 09/23/2016 Within 30 days and on chart.. 9:58:55 Pre-procedure instructions explained to patient. 9:58:55 Pre-op teaching completed and patient verbalized understanding. 9:58:57 Family in patients room. 9:58:58 Patient NPO since Midnight. 9:59:00 Is the patient allergic to Iodine/contrast media? No. 9:59:09 Is patient on blood thinner?No 9:59:11 Patient diabetic? No. 9:59:12 Patient not . Patient is over age 55. 9:59:14 Previous problem with sedation/anesthesia? No ? 9:59:15 Snore? No 9:59:16 Sleep apnea? No 9:59:17 Deviated septum? No 9:59:23 Opens mouth fully? Yes 9:59:25 Sticks out tongue? Yes 9:59:28 Airway obstruction? No ? 9:59:30 Dentures? No ? 9:59:33 Pre procedure: right dorsailis pedis pulse 1+ Palpable, but thready & weak; easily obliterated 9:59:36 Modified Asa's test Ulnar < 7 seconds 9:59:38 Patient pain scale 0/10 ?. 9:59:50 IV patent on arrival in left forearm with 0.9% NaCl at [facility]. 9:59:53 Lab results completed and on chart. 9:59:56 Right Radial & Right Groin area was prepped with chlora-prep and draped in sterile fashion 9:59:57 Alarms reviewed by R. N. 9:59:57 Sharps counted by scrub and verified by R.N. 10:01:44 Zero performed for pressure channel P1 10:02:28 Physician paged 10:02:32 Use device set Radial Dx 10:02:33 Tegaderm 4 x 4 opened to sterile field. 10:02:34 Acist Manifold opened to sterile field. 10:02:35 Acist Hand Control opened to sterile field. 10:02:36 Acist Syringe opened to sterile field. 10:02:36 Medline Cath Pack opened to sterile field. 10:02:37 Bag Decanter opened to sterile field. 10:02:37 Terumo 6Fr Slender Glidesheath opened to sterile field. 10:02:37 St Vivek 260cm J .035 wire opened to sterile field. 10:02:38 MBrace Wrist Support opened to sterile field. 10:02:59 Patient Weight : 82 kg 10:15:35 --------ALL STOP TIME OUT------ 10:15:36 Final Timeout: patient, procedure, and site verified with staff and physician. All members of the team are in agreement. 10:15:38 Right Radial & Right Groin site verified by team. 10:15:41 Physical assessment completed. ASA score P 2 - A patient with mild systemic disease as per Rafal Barkley MD. 10:15:45 Sedation plan: IV Moderate Sedation Versed, Fentanyl 10:16:01 Versed 1 mg I.V. was administered by Erin Owens RN; for sedation; 10:16:10 Fentanyl 50 mcg I.V. was administered by Erin Owens RN; for sedation; 10:18:11 Versed 1 mg I.V. was administered by Erin Owens RN; for sedation; 10:18:18 Fentanyl 50 mcg I.V. was administered by Erin Owens RN; for sedation; 10:20:03 Versed 1 mg I.V. was administered by Erin Owens RN; for sedation; 10:20:06 Procedure started. 10:20:13 Local anesthetic to right radial artery with Lidocaine 2% by Rafal Barkley MD.INITIAL ACCESS ONLY 10:20:15 Fentanyl 50 mcg I.V. was administered by Erin Owens RN; for sedation; 10:20:32 A 6 Fr Short sheath was inserted into the Right Radial artery 10:20:56 Radial Cocktail (Verapomil 2mg/Nitro 400mcg/Heparin 1500units) 1 syringe I.A. was administered by Rafal Barkley MD; for vasodilation; 10:21:37 A Diagnostic Terumo 5Fr [place] 110cm catheter was advanced over the wire and used for Procedure. 10:23:42 Glidewire used to advance catheter. 10:23:45 LV angiography performed. 10:23:49 LV gram done using WILSON 10:23:54 EF : 60 % 10:24:09 Injector settings: Ml/sec: 7, Volume: 15, 10:24:13 RCA angiography performed. 10:24:32 Terumo ADVANTAGE 260CM glide wire opened to sterile field. 10:24:48 Catheter exchanged over wire. 10:24:54 Cordis 6FR XBLAD 3.5 guide catheter opened to sterile field. 10:24:55 6 Fr XBLAD 3.5 guide catheter was inserted over the wire 10:25:00 LCA angiography performed. 10:25:10 Nunez Whisper J 300cm 0.014 guide wire opened to sterile field. 10:25:10 [employer] BasixCompak Inflation Kit opened to sterile field. 10:26:26 ACC PCI Site: [facility] has 70% stenosis. 10:26:28 ACC Pre-intervention SCOT Flow is 3. 10:26:52 Heparin Bolus 4000 units I.V. was administered by Erin Owens RN; for anticoagulation; dose verified wtih dr barkley 10:26:55 Whisper wire advanced. 10:27:48 Wire advanced across lesion. 10:28:15 Integrilin (Bolus 2mg/ml) 7.3 ml I.V. was administered by Erin Owens RN; for antiplatelet therapy; wasted 2.7 ml 10:28:16 Inflation Number: 1 A Medtronic Integrity 2.5 X 26 stent was prepped and advanced across the Mid CX. The stent was deployed at 13 MAXX for 0:10 (min:sec). 10:28:44 ACC Post-intervention SCOT Flow is 3. 10:28:46 Stent catheter was removed intact over wire. 10:28:47 Wire removed. 10:28:47 Guide catheter removed. 10:28:55 Terumo TR Band Standard opened to sterile field. 10:29:08 Sheath removed intact; hemostasis achieved with Mechanical Compression to the Right Radial artery. 10:29:10 Procedure ended.(Physican Out) 10:31:36 Fluoroscopy time 03.20 minutes. 10::41 Fluoroscopy dose: 100 mGy 10::41 Flurop Dose total: 100 10::55 Contrast amount:Isovue 300 75ml. 10:31:56 Sharps counted by scrub and verified by R.N. 10:32:00 TR band inflated with 12cc of air. 10:32:01 Insertion/operative site no bleeding no hematoma. 10:32:05 Post Procedure Pulses reassessed and unchanged 10:32:08 Post-procedure physical assessment completed. ASA score P 2 - A patient with mild systemic disease as per Rafal Barkley MD. 10:32:11 Post procedure rhythm: unchanged. 10:32:14 Estimated blood loss: 10 ml 10:32:15 Post procedure instruction explained to patient.Patient verbalizes understanding. 10:32:15 Patient needs reinforcement of post procedure teaching. 10:32:29 Procedure type changed to Cath procedure, Diagnostic procedure, LHC, LHC w/Coronaries, PCI procedure, Coronary Stent Initial, Miscellaneous Procedures, Moderate Sedation up to 15 minutes 10:32:38 Plavix 600 mg P.O. was administered by Erin Owens RN; for antiplatelet therapy; 10:32:38 Procedure Complication : No complications 10:33:34 Procedure and supply charges have been captured, reviewed, submitted and are correct. 10:34:22 Vital chart was stopped 10:34:23 See physician's report for complete and final results. 10:34:26 Report given to PCU. 10:34:33 Patient transfered to PCU with Bed. 10:34:35 Procedure ended. 10:34:35 Full Disclosure recording stopped 10:34:41 End room use (Document Last) Intervention Summary Intervention Notes Time ActionType Lesion and Equipment Action# Pressure Duration Attributes Used 10:28:16 Place stent Mid CX Medtronic 1 13 00:10 Integrity 2.5 X 26 stent Device Usage Item Name Manufacture Quantity Catalog Hospital Part Current Minimal Lot# / Number Charge Number Stock Stock Serial# Code Tegaderm 4 1 [id number] 413005 [id number] 5 x 4 Acist Acist 1 25233 486063 289645 122031 5 Manifold Medical Systems Inc Acist Hand Acist 1 08343 590572 930875 752913 5 Control Medical Systems Inc Acist Acist 1 36516 737352 352892 477230 20 Syringe Medical Systems Inc Medline Cardinal 1 [id number] 298339 96786 907885 5 Cath Pack Health Bag Microtek 1 2002S 745669 99696 180670 5 DecMaintenanceNet Inc. Terumo 6Fr Terumo 1 [id number] 934912 686691 392150 [address] St Vivek 1 605455 066992 074859 233843 30 260cm J .035 wire MBrace Advanced 1 140-0250-00 872016 88916 148501 5 Wrist Vascular Support Dynamics Diagnostic Terumo 1 90-8139 472890 794735 021881 5 Terumo 5Fr [place] 110cm catheter Terumo Terumo 1 [id number] 367728 036734 5 ADVANTAGE 260CM glide wire Cordis 6FR Cardinal 1 [id number] 353105 531398 891223 10 XBLAD 3.5 Health guide catheter Nunez Nunez 1 [id number] 944318 533983 640643 5 Whisper J Vascular 300cm 0.014 guide wire Merit Merit 1 AE9818 626931 612321 762465 15 BasixComork Medical Inflation Kit Medtronic Medtronic 1 [id number] 460651 337504 7 [id number] Integrity 2.5 X 26 stent Terumo TR Terumo 1 [id number] 908628 152276 599092 40 Band Standard Signature Audit Beulah Stage Time Signature Unsigned Intra-Procedure 09/23/2016 Wilson Brian 10:35:00 AM RT(R) Signatures Monitor : Wilson Brian RT Signature : Date : Time : [facility] [address] [place] [address]
[~2016-09-22 16:44] MED LIST changes: +PERCOCET 5-3251 TAB PO; +PROTONIX40 MG PO; +ZOFRAN4 MG PO
[2016-09-22 17:18] LABS: BASOPHILS 0.7 % (0-2); HEMATOCRIT 44.7 % (36.0-48.0); HEMOGLOBIN 14.9 g/dL (12-16); IMMATURE GRANULOCYTES 0.1 % (0-5); LYMPHOCYTES 45.6 % (15-50); MCH 29.9 pg (26.0-34.0); MCHC 33.3 g/dL (31.0-37.0); MCV 89.6 fL (80.0-100.0); MEAN PLATELET VOLUME 9.7 fL (7.4-10.4); MONOCYTES 9.1 % (2-11); NEUTROPHILS 38.5 % (40-80); RBC 4.99 10x6/uL (4.00-5.40); RDW 12.6 % (11.5-14.5); WBC 8.4 10x3/uL (4.8-10.8)
[2016-09-22 17:20] LABS: PLATELET COUNT 293 10x3/uL (130-400)
[2016-09-22 17:50] LABS: ALBUMIN 4.2 g/dL (3.4-5.0); ALKALINE PHOSPHATASE 86 U/L (46-116); ALT (SGPT) 35 U/L (10-68); BILIRUBIN - TOTAL 0.37 mg/dL (0.2-1.3); CALC OSMOLALITY 273 mosm/kg (275-300); CALCIUM 9.5 mg/dL (8.5-10.1); CARBON DIOXIDE 27.1 mmol/L (21.0-32.0); CHLORIDE - SERUM 101 mmol/L (98-107); CREATININE - SERUM 1.1 mg/dL (0.6-1.3); GLUCOSE 104 mg/dL (74-106); POTASSIUM - SERUM 4.1 mmol/L (3.5-5.1); PROTEIN - SERUM 7.8 g/dL (6.4-8.2); SODIUM 136 mmol/L (136-145); UREA NITROGEN 18 mg/dL (7-18); eGFR NON AFRICAN AMERICAN 52 mL/min (90-120)
[2016-09-22 18:02] LABS: CHOL - HDL RATIO 3.6 ratio (2.3-4.1); CHOLESTEROL, TOTAL 182 mg/dL (0-200); CKMB 0.4 U/L (0.0-3.6); CREATINE KINASE 50 UL (21-215); HDL CHOLESTEROL 50 mg/dL (32-96); LDL CHOLESTEROL 88 mg/dL (0-100); LDL-HDL RATIO 1.8 ratio (1.5-3.5); TRIGLYCERIDE 222 mg/dL (30-200)
[2016-09-22 18:06] LABS: TROPONIN-I < 0.017 ng/mL (0.000-0.060)
--- NOTE | 2016-09-22 20:02 | NUR ---
CALLED RODOLFO IN ER TO RECIEVE REPORT, INFORMED HER THAT ROOM IS STILL DIRTY.
[2016-09-22] MEDS ORDERED: PROVENTIL HFA6.7 GM INH (21:07)
[2016-09-22] MEDS ORDERED: FENOFIBRATE134 MG PO (21:07)
[2016-09-22] MEDS ORDERED: ZANAFLEX4 MG PO (21:08)
[2016-09-22] MEDS ORDERED: ZYRTEC10 MG PO (21:08)
[2016-09-22 21:16] VITALS: BP 154/87
--- NOTE | 2016-09-22 21:37 | NUR ---
HS MEDS GIVEN, D5 NS INFUSING TO LEFT AC. PT DENIES PAIN OR NEEDS, BED LOW, CL IN REACH.
[2016-09-22 23:55] VITALS: BP 141/84
--- NOTE | 2016-09-23 00:41 | NUR ---
FLEXO PRESS OPERATOR AT BEDSIDE FOR VS. NEEDS ADDRESSED AT THIS TIME. CALL LIGHT IN REACH. WILL CONT TO MONITOR.
[2016-09-23 01:07] VITALS: BP 154/87; Ht 165.1 cm; Wt 81.8 kg
--- NOTE | 2016-09-23 02:22 | NUR ---
RESTING WITH EYES CLOSED, RESPERATIONS EVEN, NO S/S DISTRESS NOTED.
[2016-09-23 03:56] VITALS: BP 155/89
[2016-09-23 08:00] VITALS: BP 138/84
[2016-09-23 08:14] LABS: BASOPHILS 0.3 % (0-2); EOSINOPHILS 1.7 % (0-7); HEMATOCRIT 41.7 % (36.0-48.0); HEMOGLOBIN 13.9 g/dL (12-16); IMMATURE GRANULOCYTES 0.1 % (0-5); LYMPHOCYTES 26.6 % (15-50); MCH 29.7 pg (26.0-34.0); MCHC 33.3 g/dL (31.0-37.0); MCV 89.1 fL (80.0-100.0); MEAN PLATELET VOLUME 10.2 fL (7.4-10.4); NEUTROPHILS 62.3 % (40-80); PLATELET COUNT 276 10x3/uL (130-400); RBC 4.68 10x6/uL (4.00-5.40); WBC 8.9 10x3/uL (4.8-10.8)
[2016-09-23 08:16] LABS: ANION GAP 15.7 mmol/L (8-16); CALCIUM 9.1 mg/dL (8.5-10.1); CARBON DIOXIDE 22.2 mmol/L (21.0-32.0); CREATININE - SERUM 0.9 mg/dL (0.6-1.3); POTASSIUM - SERUM 3.9 mmol/L (3.5-5.1)
--- NOTE | 2016-09-23 09:00 | NUR ---
ALERT AND ORIENTED X4. RESTING IN BED. CONSENTS FOR CLINIC ASSISTANT SIGNED ON CHART. PRE-OP COMPLETE. SINUS RHTHYM 62bpm ON TELEMETRY. TAKEN TO CLINIC ASSISTANT VIA BED. CONTINUE PLAN OF CARE AND SAFETY PRECAUTIONS.
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
[2016-09-23] MEDS ORDERED: PLAVIX75 MG PO (11:27)
--- NOTE | 2016-09-23 11:34 | NUR ---
PER PATIENT REQUEST: PLAVIX 75 MG #30 TAKE 1 TAB DAILY WITH NO REFILLS MARKED CALLED TO [facility]. TALKED TO SUNIL-PHARMACIST.
[2016-09-23 11:56] VITALS: BP 165/87
--- NOTE | 2016-09-23 15:13 | NUR ---
ALERT AND ORIENTED X4. TR-BAND REMOVED. FREE FROM BLEEDING. DISCHARGE INSTRUCTIONS PROVIDED WRITTEN AND VERBALLY. DC PAPERS SIGNED ON CHART. NO HEMATOMA. NO BLEEDING. ESCORT TO RIDE VIA WHEELCHAIR.
== END 2016-09-23 15:59 | disposition home or self-care (01) ==
LOC: D.ER 16:44 → D.M2 19:56 → OBSVTIME 19:56 → D.M2 09-23 15:59
PROVIDERS: Emergency Medicine; ADMIT Internal Medicine Interventional Cardiology
DX: I25.110 Atherosclerotic heart disease of native coronary artery with unstable angina pectoris (principal); Z95.5 Presence of coronary angioplasty implant and graft; I10 Essential (primary) hypertension; E78.5 Hyperlipidemia, unspecified; K21.9 Gastro-esophageal reflux disease without esophagitis; Z87.891 Personal history of nicotine dependence

== ENCOUNTER 2016-09-24 18:28 | Emergency (ER) | payer MEDICARE ==
[~2016-09-24 18:28] MED LIST changes: +FENOFIBRATE134 MG PO; +PLAVIX75 MG PO; +PROVENTIL HFA6.7 GM INH; +ZANAFLEX4 MG PO
[2016-09-24 20:29] LABS: BASOPHILS 0.3 % (0-2); EOSINOPHILS 4.1 % (0-7); HEMATOCRIT 42.5 % (36.0-48.0); IMMATURE GRANULOCYTES 0.2 % (0-5); LYMPHOCYTES 30.3 % (15-50); MCH 29.7 pg (26.0-34.0); MCHC 32.9 g/dL (31.0-37.0); MEAN PLATELET VOLUME 9.9 fL (7.4-10.4); MONOCYTES 10.2 % (2-11); NEUTROPHILS 54.9 % (40-80); PLATELET COUNT 271 10x3/uL (130-400); RBC 4.72 10x6/uL (4.00-5.40); RDW 12.8 % (11.5-14.5); WBC 10.1 10x3/uL (4.8-10.8)
[2016-09-24 20:47] LABS: ALBUMIN 3.6 g/dL (3.4-5.0); ALKALINE PHOSPHATASE 66 U/L (46-116); ALT (SGPT) 28 U/L (10-68); BILIRUBIN - TOTAL 0.28 mg/dL (0.2-1.3); CALC OSMOLALITY 275 mosm/kg (275-300); CALCIUM 9.2 mg/dL (8.5-10.1); CARBON DIOXIDE 24.3 mmol/L (21.0-32.0); CHLORIDE - SERUM 103 mmol/L (98-107); GLUCOSE 123 mg/dL (74-106); POTASSIUM - SERUM 3.9 mmol/L (3.5-5.1); SODIUM 137 mmol/L (136-145); UREA NITROGEN 15 mg/dL (7-18); eGFR NON AFRICAN AMERICAN 58 mL/min (90-120)
[2016-09-24 20:58] LABS: CHOL - HDL RATIO 3.2 ratio (2.3-4.1); CHOLESTEROL, TOTAL 149 mg/dL (0-200); CKMB 0.4 U/L (0.0-3.6); CREATINE KINASE 51 UL (21-215); HDL CHOLESTEROL 47 mg/dL (32-96); LDL CHOLESTEROL 71 mg/dL (0-100); LDL-HDL RATIO 1.5 ratio (1.5-3.5); TRIGLYCERIDE 155 mg/dL (30-200)
[2016-09-24 21:04] LABS: TROPONIN-I 0.067 ng/mL (0.000-0.060)
== END 2016-09-24 22:00 | disposition home or self-care (01) ==
LOC: D.ER 18:28
PROVIDERS: Family Medicine
DX: K21.9 Gastro-esophageal reflux disease without esophagitis (principal); I25.10 Atherosclerotic heart disease of native coronary artery without angina pectoris; I10 Essential (primary) hypertension; E78.5 Hyperlipidemia, unspecified

== ENCOUNTER → 2016-09-25 14:08 | Outpatient (CLI) | payer MEDICARE | END | disposition home or self-care (01) | LOC: D.RAD 14:08 | DX: R13.19 Other dysphagia (principal) ==

== ENCOUNTER → 2017-01-27 18:16 | Outpatient (CLI) | payer MEDICARE ==
[~2017-01-27 18:16] MED LIST changes: +XALATAN 0.0052.5 ML EACH EYE
== END | disposition home or self-care (01) ==
LOC: D.MAMMO 15:45
DX: Z12.31 Encounter for screening mammogram for malignant neoplasm of breast (principal)

== ENCOUNTER → 2017-02-13 08:50 | Outpatient (CLI) | payer MEDICARE | END | disposition home or self-care (01) | LOC: D.CT 08:50 | DX: M54.12 Radiculopathy, cervical region (principal) ==

== ENCOUNTER 2017-03-17 06:14 | Inpatient (IN) | payer MEDICARE ==
[2017-03-16 09:13] LABS: HEMATOCRIT 45.8 % (36.0-48.0); HEMOGLOBIN 15.3 g/dL (12-16); MCH 30.2 pg (26.0-34.0); MCHC 33.4 g/dL (31.0-37.0); MCV 90.5 fL (80.0-100.0); MEAN PLATELET VOLUME 10.2 fL (7.4-10.4); RBC 5.06 10x6/uL (4.00-5.40); RDW 12.9 % (11.5-14.5); WBC 8.8 10x3/uL (4.8-10.8)
[~2017-03-17] VITALS: Ht 165.1 cm; Wt 83.6 kg
[2017-03-17] VITALS (12 sets, daily range): BP systolic 101–141; BP diastolic 62–100; Ht 165.1 cm; Wt 83.6 kg
[2017-03-18] VITALS (21 sets, daily range): BP systolic 94–144; BP diastolic 57–87
[2017-03-18 07:26] LABS: BASOPHILS 0 % (0-2); EOSINOPHILS 0 % (0-7); HEMATOCRIT 36.9 % (36.0-48.0); IMMATURE GRANULOCYTES 0.4 % (0-5); LYMPHOCYTES 11.8 % (15-50); MCH 29.6 pg (26.0-34.0); MCHC 33.1 g/dL (31.0-37.0); MCV 89.6 fL (80.0-100.0); MEAN PLATELET VOLUME 9.7 fL (7.4-10.4); MONOCYTES 8.9 % (2-11); NEUTROPHILS 78.9 % (40-80); PLATELET COUNT 290 10x3/uL (130-400); RBC 4.12 10x6/uL (4.00-5.40); RDW 13.1 % (11.5-14.5)
[2017-03-18 07:40] LABS: ANION GAP 14.5 mmol/L (8-16); CALCIUM 8.4 mg/dL (8.5-10.1); CREATININE - SERUM 1.4 mg/dL (0.6-1.3); POTASSIUM - SERUM 4.5 mmol/L (3.5-5.1)
[2017-03-18 07:41] LABS: HEMOGLOBIN 12.2 g/dL (12-16); WBC 15.2 10x3/uL (4.8-10.8)
[2017-03-19 03:00] VITALS: BP 156/78
[2017-03-19 06:00] VITALS: BP 152/81
[2017-03-19 08:00] VITALS: BP 141/75
--- NOTE | 2017-03-26 13:27 | OP ---
PATIENT NAME: BLOSSOM ALMANZA MEDICAL RECORD: [id number] :48 LOCATION:.[facility] D.2302 ADMISSION DATE:03/17/17 SURGEON: MAKI AGUDELO MD DATE OF OPERATION: 03/17/2017 PROCEDURE: Exposure for anterior lumbar interbody fusion. This was a cosurgeon procedure. Due to complexity of the procedure, 2 attending surgeons were necessary during the operative procedure. Dr. Wilner Chiang was the neurosurgeon. The access surgeon, who is a general surgeon, is Dr. Maki Agudelo. For the description of the construct please see Dr. Chiang's note. I was present through the entire operation from the initial skin incision to the final closure. I never left the operating room and was present and assisted Dr. Chiang during insertion of the construct. DESCRIPTION OF THE PROCEDURE: The patient was conveyed to the operating room electively on 03/17/2017. General anesthesia was induced by the anesthesia staff. The abdomen was sterilely prepped and draped. Utilizing the C-arm and visualizing the lower lumbar spine laterally, we identified the L5-S1 interspace and utilizing a metallic marker, we identified the angulation of the L5-S1 interspace and where this under fluoroscopy met the anterior abdominal wall skin. This aided me in guiding my incision for approach to the L5-S1 disc space. This was marked on the patient's abdomen. An incision was accomplished in the midline and this was a transverse incision. Sharp dissection was carried down through skin and subcutaneous tissue as well as Tara's fascia. The linea alba was incised in the midline. I then elevated the left rectus abdominis muscle. Creating an extraperitoneal plane, I continued around on the left side. The round ligament was identified and divided. The transversalis fascia was identified and divided. I elevated the epigastric vein. The visceral sac was then pulled to the left. I identified the ureter. The iliac artery and vein were identified. The ureter was protected and undamaged through the entire operation. I identified the L5-S1 disc space. The MARS retractor was then fixated above the incision and the retractor blades were placed. We elevated the bifurcation of the inferior vena cava as well as both common iliac veins. This exposed the L5-S1 disc space. The median sacral vein was cauterized with the bipolar cautery. Dr. Chiang then inserted a needle into the L5-S1 disc space and this disc space was confirmed radiographically. I was present and retracted venous structures away from Dr. Chiang's operative field while he performed the discectomy and placement of the spinal construct. I was with him during this entire procedure and assisted him with retraction of tissue away from his operative site. Once he was finished with insertion of the construct and was satisfied with how it appeared radiographically, I went about closing the abdomen. I released the retractors. There was no bleeding. I identified the left ureter and it was undamaged during the procedure. I noted no evidence of a DVT in the left iliac venous system. There appeared to have been no intestinal injury. No injury to the bladder. The linea alba was closed in the midline with a running looped 0 PDS from the cephalad and caudad directions. Tara's fascia was approximated with interrupted 3-0 Vicryls. The subdermis was approximated with interrupted 3-0 Vicryls. The skin was approximated with a running intracuticular 3-0 Vicryl. Benzoin and Steri-Strips were applied. OPERATIVE REPORT [id number] BLOSSOM ALMANZA The patient was then extubated and conveyed to post-anesthesia care unit where she was in stable condition. TRANSINT:[id number] Voice Confirmation ID: [id number] DOCUMENT ID: [id number] MAKI AGUDELO MD at 1327 CC: [id number] DICTATION DATE: 03/18/171846 BUSINESS INTEGRATION ANALYST: 03/18/17 2316 DIS IN 03/19/17 [facility] [address] [place] [address]
--- NOTE | 2017-04-06 13:23 | OP ---
PATIENT NAME: BLOSSOM ALMANZA MEDICAL RECORD: [id number] :48 LOCATION:D[facility] D.2302 ADMISSION DATE:03/17/17 SURGEON: MATEO OLGUIN MD DATE OF OPERATION: 03/19/2017 PREOPERATIVE DIAGNOSES: Severe bilateral foraminal stenosis at L5-S1, spondylolisthesis grade II at L5-S1, segmental instability at L5-S1 with severe degenerative disk disease. PROCEDURE: Anterior lumbar interbody fusion L5-S1 with [employer] Magnify interbody cage and plate and screws from L5 to S1. The cage was 25 x 31 mm with 15 degrees of lordosis. Fusion was with allograft bone stem cells ViaCell 10 cc. The superior screw was 5.5 x 25 mm. The 2 inferior screws were 5.5 x 30 mm. COSURGEON: Mateo Olguin MD COSURGEON: Jose Iverson MD DESCRIPTION OF TECHNIQUE: After Dr. Iverson exposed the anterior L5-S1 interspace, I entered the operating field and incised the disk space at L5-S1, removed the bony endplates with a Ely curettes, and prepared the endplates at L5 and S1, distracted the L5-S1 interspace with a series of dilators. A Magnify-S cage was placed in the disk space under distraction. Prior to this it was filled with ViaCell stem cell bone graft. The superior screw was advanced under fluoroscopic control. The inferior screws were advanced under fluoroscopic control after drilling and tapping each hole. The locking cams were tightened down with screw heads. Good position of the hardware was identified with fluoroscopic x-ray. There was excellent foraminal decompression on both sides. Dr. Iverson closed the wound. The patient tolerated the procedure well. All counts were reported as correct. Estimated blood loss was 150 cc. TRANSINT:[id number] Voice Confirmation ID: [id number] DOCUMENT ID: [id number] MATEO OLGUIN MD at 1323 CC: [id number] DICTATION DATE: 03/19/17 1026 MANAGER INTERNATIONAL: 03/19/17 1159 DIS IN 03/19/17 [place] [address]
== END 2017-03-19 12:11 | disposition home or self-care (01) | DRG 460 ==
LOC: D.ICU 06:14 → D.SDCHOLD 06:14 → D.ICU 18:00
PROVIDERS: Anesthesiology; ADMIT Neurological Surgery
PROC: 0SG30A0 Fusion of Lumbosacral Joint with Interbody Fusion Device, Anterior Approach, Anterior Column, Open Approach (ICD-10-PCS; principal; 2017-03-19)
DX: M43.17 Spondylolisthesis, lumbosacral region (principal); M51.37 Other intervertebral disc degeneration, lumbosacral region; I10 Essential (primary) hypertension; J45.909 Unspecified asthma, uncomplicated; I25.10 Atherosclerotic heart disease of native coronary artery without angina pectoris; E78.5 Hyperlipidemia, unspecified; E03.9 Hypothyroidism, unspecified; F17.200 Nicotine dependence, unspecified, uncomplicated

== ENCOUNTER 2017-08-29 07:00 | Outpatient (CLI) | payer MEDICARE ==
[~2017-08-29] VITALS: Ht 165.1 cm; Wt 77.3 kg
--- NOTE | ~2017-08-29 | DS ---
PATIENT:BLOSSOM ALMANZA :48 MEDICAL RECORD: [id number] DISCHARGE SUMMARY ADMISSION DATE: 08/29/17 DISCHARGE DATE: 08/29/17 DIAGNOSES: 1. Angina. 2. Coronary disease. 3. PTCA and stent of left circumflex on this admission. Ms. Almanza presents with anginal symptomatology, found to have 2-vessel disease of the LAD and the circumflex. She underwent successful PTCA and stent of the circumflex, discharged home with the addition of aspirin and Plavix to her medical regimen. She will follow up within the week for PTCA and stent of LAD and diagonal. TRANSINT:[id number] Voice Confirmation ID: [id number] DOCUMENT ID: [id number] MILY BEASLEY MD at 1403 CC: [id number] DICTATION DATE: 08/29/17 1200 FIXTURE MAKER: 08/30/17 1150 DEP CLI 08/29/17 [place] [id number] [place] [address]
--- NOTE | ~2017-08-29 | HP ---
PATIENT: BLOSSOM ALMANZA MEDICAL RECORD: [id number] ACCOUNT: [id number] LOCATION:[address] : 48 ADMISSION DATE: 08/29/17 HISTORY AND PHYSICAL EXAMINATION ADMITTING DIAGNOSES: 1. Unstable angina. 2. Coronary artery disease. 3. Previous percutaneous transluminal coronary angioplasty stent, last being September of 2016. 4. Hypertension. 5. Hyperlipidemia. HISTORY OF PRESENT ILLNESS: Mrs. Almanza presents with anginal symptomatology, severe since 6:00 a.m. this morning, just like that of her previous angina. She continues to have severe chest pain despite nitro as well as morphine. Her EKG is with no acute changes. REVIEW OF SYSTEMS: The patient reports easy bruising but reports no swollen glands. The patient reports no fever, no night sweats, no significant weight gain, no significant weight loss. No significant exercise tolerance. The patient reports no dry eyes, no irritation, no vision change. Patient reports no difficulty hearing and no ear pain. Patient reports no frequent nose bleeds or nose and sinus problems. Patient reports on arm pain on exertion. No shortness of breath while lying down. No history of heart murmur. Patient reports no cough, no wheezing or coughing up blood. Patient reports no abdominal pain, no vomiting. Normal appetite. No diarrhea and not vomiting blood. No nausea and no constipation. Patient reports no incontinence. No difficulty urinating. No hematuria. No increased frequency. Patient reports no muscle aches. No weakness, no arthralgias, no back pain. No swelling of the extremities. Patient reports no abnormal mole, no jaundice, no rashes. Reports no loss of consciousness. No weakness and no numbness. No seizures, dizziness, or headaches. The patient reports no depression, no sleep disturbance, feeling safe in a relationship and no alcohol abuse. Patient reports on fatigue. Reports no runny nose or sinus pressure. No itching, no hives, and no frequent sneezing. PHYSICAL EXAMINATION: GENERAL APPEARANCE: Well-nourished, well-developed, appears stated age. Level of distress, comfortable. PSYCHIATRIC: Mental status, alert, normal affect. Orientation, oriented to time, place and person. EYES: Lids and conjunctiva, noninjected. No discharge, no pallor. ENT: Lips, teeth, gums, normal dentition. Oropharynx, no cyanosis, no pallor. NECK: Carotid arteries, bilateral normal upstroke, no bruits, no thrills. JUGULAR VEINS: No jugular venous pressure or distention. CERVICAL LYMPH NODES: Nontender, nonenlarged. THYROID: Not enlarged. Nontender. No nodules. LUNGS: Respiratory effort, unlabored. CHEST: Normal curvature. No thoracic deformity. No chest wall tenderness. Percussion, resonant. Auscultation, clear. No wheezes, no rales, no rhonchi. CARDIOVASCULAR: Precordial exam, nondisplaced. No heaves or pericardial thrills. Rate and rhythm, regular. Heart sounds, normal S1, normal S2. No S3, no gallop, no rub. Systolic murmur, not heard. Diastolic murmur, not heard. EXTREMITIES: No cyanosis, no edema. Peripheral pulses, full and equal in all HISTORY AND PHYSICAL [id number] BLOSSOM ALMANZA extremities, except as noted. No bruits appreciated. ABDOMEN: Soft, nondistended. Normal aorta. No bruit. Nontender. No masses. Liver, nontender, no hepatomegaly. Spleen, nontender, no splenomegaly. MUSCULOSKELETAL: No joint tenderness. No joint swelling. No erythema. NEUROLOGICAL: Normal gait, normal strength, normal tone. SKIN: Warm and dry. OVERALL IMPRESSION: Unstable angina in a patient with a past history of coronary artery disease, most likely she has recurrent hemodynamically significant coronary artery disease. We will proceed with coronary angiography. Further care depends upon the findings of the angiography. TRANSINT:[id number] Voice Confirmation ID: [id number] DOCUMENT ID: [id number] MILY BEASLEY MD at 1157 CC: [id number] DICTATION DATE: 08/29/17 0913 DIRECTOR OF RECRUITING: 08/29/17 1043 [facility] [address] [place] [address]
--- NOTE | ~2017-08-29 | HEMODYNAMI ---
PATIENT:BLOSSOM ALMANZA MEDICAL RECORD: [id number] : 48 LOCATION:[facility].213 ADMISSION DATE: 08/29/17 Generatedon:08/29/201712:01 Patient name: BLOSSOM ALMANZA Patient #: [id number] SSN: DO B: 1950 Date of study: 08/29/2017 Page: Of Hemodynamic Procedure Report Patient Data Patient Demographics Procedure consent was obtained First Name: BLOSSOM Gender: Female Last Name: CAMI : 1950 [facility] Initial: STACI Age: 67 year(s) Patient #: [id number] Race: Unknown Additional ID: [id number] Contact details [address]: [address] [place] [address] State: [place] City: [place] Zip code: [address] Past Medical History Allergies Allergen Reaction Date Comments Reported Codeine 01/22/2016 Other allergy 01/22/2016 [place] NSAIDs 01/22/2016 Penicillins 01/22/2016 Other allergy 01/22/2016 Singulair, Phenergan, Solu-Medrol Admission Admission Data Admission Date: 08/29/2017 Admission Time: 7:00 Room #: [facility] Procedure Procedure Types Cath Procedure Diagnostic Procedure [facility] w/Coronaries Sedation Charges Moderate Sedation up to 15 minutes PCI Procedure Coronary Stent Coronary Stent Initial PTCA PTCA Additional Procedure Description Procedure Date Procedure Date: 08/29/2017 Procedure Start Time: 11:36 Procedure End Time: 11:57 Procedure Staff Name Function Rafal Barkley MD Performing Physician Ana Dominguez RT Monitor Nita Mcarthur RT Scrub Kavita Norwood RN Nurse Procedure Data Cath Procedure Fluoroscopy Diagnostic fluoroscopy Total fluoroscopy Time: 7.2 time: 7.2 min min Diagnostic fluoroscopy Total fluoroscopy dose: 829 dose: 829 mGy mGy Contrast Material Contrast Material Type Amount (ml) Isovue 300 103 Entry Location Entry Primary Successful Side Size Upsize Upsize Entry Closure [place] ccessful Closure Location (Fr) 1 (Fr) 2 (Fr) Remarks Device Remarks Radial Right 6 Fr Mechanical artery Short Compression Estimated blood loss: 5 ml Diagnostic catheters Device Type Used For End Catheter Placement DIAGNOSTIC [place] 110cm 5 Multi-vessel Fr catheter ([id number]) Angiography Procedure Complications No complications Procedure Medications Medication Administration Route Dosage Oxygen NC 2 l/min Lidocaine 2% added to field 20 Heparin Flush Bag added to field 2 bags (1000units/500ml NS) 0.9% NaCl I.V. 100 ml/hr Radial Cocktail I.A. 1 syringe (Verapomil 2mg/Nitro 400mcg/Heparin 1500units) Versed I.V. 1 mg Versed I.V. 1 mg Fentanyl I.V. 50 mcg Heparin Bolus I.V. 4000 units Integrilin (Bolus I.V. 6.8 ml 2mg/ml) Versed I.V. 1 mg Fentanyl I.V. 25 mcg Fentanyl I.V. 50 mcg Hemodynamics Rest Heart Rate: 79 (bpm) Pressure Samples Time Site Value (mmHg) Purpose Heart Use Rate(bpm) 11:40 LV 93/19,37 Snapshot 79 Snapshots Pre Cath Intra NCS Post Cath Vital Signs Time Heart Resp SPO2 etCO2 NIBP (mmHg) Rhythm Pain Sedation Rate (ipm) (%) (mmHg) Status Level (bpm) 11:34:46 81 14 100 37.4 185/103(149) NSR 0 (11) 10(A) , No pain 11:39:27 74 15 98 6.7 134/73(120) NSR 0 (11) 9(A) , No pain 11:44:05 79 15 93 32.8 145/80(114) NSR 0 (11) 9(A) , No pain 11:48:46 83 16 97 38.8 147/86(128) NSR 0 (11) 9(A) , No pain 11:53:27 75 14 94 25.3 125/72(99) NSR 0 (11) 9(A) , No pain 11:58:40 82 15 97 26.8 156/78(122) NSR 0 (11) 10(A) , No pain Medications Time Medication Route Dose Verified Delivered Reason Note s Effectiveness by by 11:32:22 Oxygen NC 2 l/min Rafal Walls used for Rubia Norwood marble ceiling installer 11:34:25 Lidocaine 2% added 20ml Rafal Lyles for local to vial Rubia Barkley MD anesthetic field 11:34:31 Heparin Flush added 2 bags Rafal Lyles used for Bag to Rubia Barkley MD procedure (1000units/500ml field NS) 11:34:41 0.9% NaCl I.V. 100 Rafal Walls Per physician ml/hr Rubia Norwood RN 11:36:09 Fentanyl I.V. 50 mcg Rafal Walls for sedation Rubia Norwood RN 11:36:57 Versed I.V. 1 mg Rafal Walls for sedation Rubia Norwood RN 11:38:47 Radial Cocktail I.A. 1 Rafal Lyles for (Verapomil syringe Rubia Barkley MD vasodilation 2mg/Nitro 400mcg/Heparin 1500units) 11:42:06 Versed I.V. 1 mg Rafal Cooleyie for sedation Rubia Norwood RN 11:42:44 Fentanyl I.V. 50 mcg Rafal Walls for sedation Rubia Norwood RN 11:46:54 Heparin Bolus I.V. 4000 Rafal Walls for veri fied units Rubia Norwood RN anticoagulation with dr barkley 11:48:56 Integrilin I.V. 6.8 ml Rafal Walls for wast ed (Bolus 2mg/ml) Rubia Norwood RN antiplatelet 3.2 ml therapy of vial 11:54:11 Versed I.V. 1 mg Rafal Walls for sedation Rubia Norwood RN 11:54:19 Fentanyl I.V. 25 mcg Rafal Walls for sedation Rubia Norwood RN Procedure Log Time Note 11:00:43 Time tracking: Regular hours (M-F 7:00 - 5:00) 11:00:47 Plan of Care:Hemodynamics will remain stable., Cardiac rhythm will remain stable., Comfort level will be maintained., Respiratory function will remain adequate., Patient/ family verbilizes understanding of procedure., Procedure tolerated without complication., Recovers from procedure without complications.. 11:00:49 Signed procedure consent form obtained from patient. 11:00:51 Kavita Norwood RN sent for patient. Start room use. 11:22:02 Patient received from Med II to CCL 1 Alert and oriented. Tansferred to table in Supine position. 11:22:03 Warm blankets applied, and alejandra hugger turned on for patient comfort. 11:22:04 Correct patient and procedure confirmed by team. 11:22:04 ECG and BP/O2 sat monitors applied to patient. 11:32:22 Oxygen 2 l/min NC was administered by Kavita Norwood RN; used for procedure; 11:33:49 Vital chart was started 11:33:50 Baseline sample Acquired. 11:33:54 Rhythm: sinus rhythm 11:33:56 Full Disclosure recording started 11:33:59 H&P Date Dictated: 08/29/2017 New H&P dictated by physician.. 11:34:00 Pre-procedure instructions explained to patient. 11:34:01 Pre-op teaching completed and patient verbalized understanding. 11:34:02 Family in waiting room. 11:34:03 Patient NPO since Midnight. 11:34:05 Is the patient allergic to Iodine/contrast media? No. 11:34:08 Was the patient premedicated? No 11:34:09 Is patient on blood thinner?Yes 11:34:12 ACC The patient was administered the following blood thiners within the last 24 hours: ACCPlavix 11:34:16 Patient diabetic? No. 11:34:18 Previous problem with sedation/anesthesia? No ? 11:34:21 Snore? Yes 11:34:22 Sleep apnea? No 11:34:22 Deviated septum? No 11:34:23 Opens mouth fully? Yes 11:34:24 Sticks out tongue? Yes 11:34:25 Lidocaine 2% 20ml vial added to field was administered by Rafal Barkley MD; for local anesthetic; 11:34:25 Airway obstruction? No ? 11:34:29 Dentures? No ? 11:34:31 Heparin Flush Bag (1000units/500ml NS) 2 bags added to field was administered by Rafal Barkley MD; used for procedure; 11:34:33 Pre procedure: right dorsailis pedis pulse 2+ Normal; easily identifiable; not easily obliterated 11:34:36 Pre procedure: left dorsailis pedis pulse 2+ Normal; easily identifiable; not easily obliterated 11:34:38 Patient pain scale 0/10 ?. 11:34:41 0.9% NaCl 100 ml/hr I.V. was administered by Kavita Norwood RN; Per physician; 11:34:48 IV patent on arrival in right wrist with 0.9% NaCl at KVO. 11:34:51 Lab results completed and on chart. 11:34:54 Right Radial & Right Groin area was prepped with chlora-prep and draped in sterile fashion 11:34:55 Alarms reviewed by R. N. 11:34:56 Sharps counted by scrub and verified by R.N. 11:34:57 Physician arrived 11:34:58 --------ALL STOP TIME OUT------ 11:34:59 Final Timeout: patient, procedure, and site verified with staff and physician. All members of the team are in agreement. 11:35:01 Right Radial & Right Groin site verified by team. 11:35:04 Physical assessment completed. ASA score P 2 - A patient with mild systemic disease as per Rafal Barkley MD. 11:35:07 Sedation plan: IV Moderate Sedation Medication:Versed, Fentanyl 11:35:10 Use device set Radial Dx or PCI 11:35:11 ACIST Syringe (22207) opened to sterile field. 11:35:12 Medline Cath Pack ([id number]) opened to sterile field. 11:35:12 Bag Decanter (2002S) opened to sterile field. 11:35:12 DIAGNOSTIC WIRE .035 260cm J wire (521198) opened to sterile field. 11:35:13 ACIST Hand Control (95214) opened to sterile field. 11:35:13 ACIST Manifold (38255) opened to sterile field. 11:35:13 Tegaderm 4 x 4 (1626W) opened to sterile field. 11:35:14 MBrace Wrist Support (212931676) opened to sterile field. 11:35:15 SHEATH 6Fr Prelude Radial ([id number]) opened to sterile field. 11:36:09 Fentanyl 50 mcg I.V. was administered by Kavita Norwood RN; for sedation; 11:36:50 Procedure started. 11:36:56 Local anesthetic to right radial artery with Lidocaine 2% by Rafal Barkley MD.INITIAL ACCESS ONLY 11:36:57 Versed 1 mg I.V. was administered by Kavita Norwood RN; for sedation; 11:37:08 A 6 Fr Short sheath was inserted into the Right Radial artery 11:38:18 Zero performed for pressure channel P1 11:38:47 Radial Cocktail (Verapomil 2mg/Nitro 400mcg/Heparin 1500units) 1 syringe I.A. was administered by Rafal Barkley MD; for vasodilation; 11:39:04 A DIAGNOSTIC [place] 110cm 5 Fr catheter (577095) was advanced over the wire and used for Multi-vessel Angiography. 11:39:33 GLIDE WIRE ANGLE 260cm (YS6465) opened to sterile field. 11:40:51 LV hemodynamics recorded. 11:40:53 LV gram done using WILSON 11:40:55 Injector settings: Ml/sec: 5, Volume: 15, 11:41:01 EF : 60 % 11:41:39 RCA angiography performed. 11:41:42 Injector settings: Ml/sec: 3, Volume: 6, 11:42:06 Versed 1 mg I.V. was administered by Kavita Norwood RN; for sedation; 11:42:07 Catheter removed. 11:42:44 Fentanyl 50 mcg I.V. was administered by Kavita Norwood RN; for sedation; 11:43:25 GUIDE 6FR XB 3.5 catheter ([id number]) opened to sterile field. 11:44:18 6 Fr xb 3.5 guide catheter was inserted over the wire 11:44:31 LCA angiography performed. 11:44:34 Injector settings: Ml/sec: 3, Volume: 6, 11:46:54 Heparin Bolus 4000 units I.V. was administered by Kavita Norwood RN; for anticoagulation; verified with dr barkley 11:47:21 GRAPHIX 300cm 0.014 guide wire ([id number]) opened to sterile field. 11:47:22 INFLATOR Merit BasixCompak (OO2043) opened to sterile field. 11:47:35 pt graphix wire advanced. 11:47:57 Wire advanced across lesion. 11:48:56 Integrilin (Bolus 2mg/ml) 6.8 ml I.V. was administered by Kavita Norwood RN; for antiplatelet therapy; wasted 3.2 ml of vial 11:49:11 Place stent Inflation Number: 1 A RHETT OTW 3.0 x 22 stent ([id number]) was prepped and advanced across the Mid CX. The stent was deployed at 17 MAXX for 0:10 (min:sec). 11:51:27 Wire redirected to om. 11:52:16 Inflate balloon Inflation number: 1 A EMERGE OTW 3.5 x 12 balloon ([id number]) was prepped and advanced across the 1st Ob Margaret, then inflated to 11 MAXX for 0:10 (min:sec). 11:52:22 Inflation number: 2 The EMERGE OTW 3.5 x 12 balloon ([id number]) was reinflated across the 1st Ob Margaret, to 13 MAXX for 0:30 (min:sec). 11:53:16 GRAPHIX 300cm 0.014 guide wire ([id number]) opened to sterile field. 11:54:07 graphix wire exchanged for new undamaged graphix 11:54:11 Versed 1 mg I.V. was administered by Kavita Norwood RN; for sedation; 11:54:17 Wire redirected to lcx. 11:54:19 Fentanyl 25 mcg I.V. was administered by Kavita Norwood RN; for sedation; 11:54:49 Inflation number: 2 The EMERGE OTW 3.5 x 12 balloon ([id number]) was reinflated across the Mid CX, to 9 MAXX for 0:10 (min:sec). 11:55:22 Balloon removed over the wire. 11:55:23 Wire removed. 11:55:23 Guide catheter removed. 11:55:29 TR BAND Standard ([id number]) opened to sterile field. 11:55:39 Sheath removed intact; hemostasis achieved with Mechanical Compression to the Right Radial artery. 11:55:43 Procedure ended.(Physican Out) 11:56:14 Fluoroscopy time 07.20 minutes. 11:56:21 Flurop Dose total: 829 11:56:21 Fluoroscopy dose: 829 mGy 11:56:31 Contrast amount:Isovue 300 103ml. 11:56:33 Sharps counted by scrub and verified by R.N. 11:56:42 TR band inflated with 13cc of air. 11:56:44 Insertion/operative site no bleeding no hematoma. 11:56:59 Post right radial artery:stable 11:57:01 Post Procedure Pulses reassessed and unchanged 11:57:04 Post procedure rhythm: unchanged. 11:57:06 Estimated blood loss: 5 ml 11:57:08 Post procedure instruction explained to patient.Patient verbalizes understanding. 11:57:08 Patient needs reinforcement of post procedure teaching. 11:57:42 Procedure type changed to Cath procedure, Diagnostic procedure, LHC, LHC w/Coronaries, Sedation Charges, Moderate Sedation up to 15 minutes, PCI procedure, Coronary Stent, Coronary Stent Initial, PTCA, PTCA Additional 11:57:43 Procedure and supply charges have been captured, reviewed, submitted and are correct. 11:57:47 Procedure Complication : No complications 11:57:50 Vital chart was stopped 11:57:51 See physician's report for complete and final results. 11:57:53 Report given to [facility]. 11:57:55 Patient transfered to [facility] II with Stretcher. 11:57:59 Procedure ended. 11:57:59 Full Disclosure recording stopped 11:58:05 ACC-PCI Only Patient was given prescriptions, or instructed by Rafal Barkley MD to start/continue the following medications upon discharge: Plavix 11:58:07 End room use (Document Last) Intervention Summary Intervention Notes Time ActionType Lesion and Equipment Action# Pressure Duration Attributes Used 11:49:11 Place stent Mid CX RHETT OTW 3.0 1 17 00:10 x 22 stent ([id number]) 11:52:16 Inflate 1st Ob Margaret EMERGE OTW 1 11 00:10 balloon 3.5 x 12 balloon ([id number]) 11:52:22 Reinflate 1st Ob Margaret EMERGE OTW 2 13 00:30 balloon 3.5 x 12 balloon ([id number]) 11:54:49 Reinflate Mid CX EMERGE OTW 2 9 00:10 balloon 3.5 x 12 balloon ([id number]) Device Usage Item Name Manufacture Quantity Catalog Number Hospital Part Current Minimal Lot# / Charge Number Stock Stock Serial# Code ACIST Syringe Acist 1 44738 591259 454169 336702 20 (90235) Medical Systems Inc Medline Cath Cardinal 1 [id number] 013684 23532 462972 5 Pack Health ([id number]) Bag Decanter Microtek 1 458210 73796 952108 5 () Medical Inc. DIAGNOSTIC WIRE St Vivek 1 852594 650073 025520 920327 30 .035 260cm J wire (982660) ACIST Hand Acist 1 81296 132446 149973 250834 5 Control (67371) Medical Systems Inc ACIST Manifold Acist 1 56163 674002 109582 484751 5 (80879) Medical Systems Inc Tegaderm 4 x 4 3M 1 1626W 511929 870859 521044 5 (1626W) MBrace Wrist Advanced 1 140-0250-00 917268 22134 622162 5 Support Vascular (747773701) Dynamics SHEATH 6Fr Merit 1 [id number] 482400 464634 176114 5 Prelude Radial Medical ([id number]) DIAGNOSTIC Terumo 1 405013 001212 530627 457587 5 [place] 110cm 5 Fr catheter (681605) GLIDE WIRE Terumo 1 QH3126 221614 116798 982032 5 ANGLE 260cm (HO5148) GUIDE 6FR XB Cardinal 1 [id number] 879021 537264 917542 2 3.5 catheter Health (95114042) GRAPHIX 300cm Raymond 2 [id number] 215367 430443 273173 5 [id number] 0.014 guide Scientific [id number] wire ([id number]) INFLATOR Merit Merit 1 PV6796 748840 292152 018648 15 BasixCompak Medical (TX6710) RHETT OTW 3.0 x Medtronic 1 [id number] 722093 9400458 788914 5 [id number] 22 stent ([id number]) EMERGE OTW 3.5 Raymond 1 [id number] 776693 264721 684725 5 [id number] x 12 balloon Scientific ([id number]) TR BAND Terumo 1 [id number] 855654 919956 839550 40 Standard ([id number]) Signature Audit [place] Stage Time Signature Unsigned Intra-Procedure 08/29/2017 Ana Dominguez 12:01:32 PM RT(R) Signatures Monitor : Ana Dominguez RT Signature : Date : Time : [facility] [address] [facility] [place] [address]
--- NOTE | ~2017-08-29 | OP ---
PATIENT NAME: BLOSSOM ALMANZA MEDICAL RECORD: [id number] :48 LOCATION:D.CAT ADMISSION DATE: SURGEON: MILY BEASLEY MD DATE OF OPERATION: 08/29/2017 PROCEDURES: 1. PTCA stent left circumflex. 2. Selective coronary angiography. INDICATION: Angina and coronary artery disease. PROCEDURE IN DETAIL: After informed consent was obtained and after a detailed explanation of the risks, benefits as well as alternative therapies, the patient elected to proceed with angiogram and angioplasty. The right radial area was prepped and draped in normal sterile fashion. Right radial artery was cannulated via modified Seldinger technique with placement of 6-Anguillan sheath. All catheters exchanged through this sheath. FINDINGS: The left ventriculogram was performed in standard 30-degree WILSON view reveals good cardiac wall motion throughout all segments. Overall ejection fraction estimated at 60%. SELECTIVE CORONARY ANGIOGRAPHY: 1. Left main is with no significant angiographic disease. 2. Left anterior descending has previously placed stents. Previously placed stent is widely patent; however, after this there is a new 75% stenosis involving the LAD and the diagonal. 3. The left circumflex has previously placed stent with greater than 75% in-stent restenosis. PTCA STENT OF THE CIRCUMFLEX: The stent used was a 3.0 x 22 mm Bandar. Result was 0% residual stenosis. OVERALL IMPRESSION: Successful percutaneous transluminal angioplasty stent of the left circumflex going from 75% initial stenosis to 0% residual. PLAN: Plan for PTCA stent of the LAD and LAD diagonal in the near future. TRANSINT:[id number] Voice Confirmation ID: [id number] DOCUMENT ID: [id number] MILY BEASLEY MD at 1403 CC: [id number] DICTATION DATE: 08/29/17 1201 FRAME CLEANER: 08/29/17 1646 DEP CLI 08/29/17 [place] [id number] [place] [id number]
[2017-08-29 07:45] LABS: BASOPHILS 0.5 % (0-2); EOSINOPHILS 3.2 % (0-7); HEMATOCRIT 42.7 % (36.0-48.0); HEMOGLOBIN 14.5 g/dL (12-16); IMMATURE GRANULOCYTES 0.2 % (0-5); LYMPHOCYTES 37.7 % (15-50); MCV 88.2 fL (80.0-100.0); MEAN PLATELET VOLUME 10.1 fL (7.4-10.4); MONOCYTES 11.2 % (2-11); NEUTROPHILS 47.2 % (40-80); PLATELET COUNT 251 10x3/uL (130-400); RBC 4.84 10x6/uL (4.00-5.40); RDW 13.2 % (11.5-14.5); WBC 8.1 10x3/uL (4.8-10.8)
[2017-08-29 08:00] LABS: ALBUMIN 3.5 g/dL (3.4-5.0); ALKALINE PHOSPHATASE 66 U/L (46-116); ALT (SGPT) 14 U/L (10-68); BILIRUBIN - TOTAL 0.32 mg/dL (0.2-1.3); CALC OSMOLALITY 283 mosm/kg (275-300); CALCIUM 9.1 mg/dL (8.5-10.1); CARBON DIOXIDE 26.3 mmol/L (21.0-32.0); CHLORIDE - SERUM 107 mmol/L (98-107); CREATININE - SERUM 1.2 mg/dL (0.6-1.3); GLUCOSE 142 mg/dL (74-106); POTASSIUM - SERUM 4.2 mmol/L (3.5-5.1); SODIUM 141 mmol/L (136-145); UREA NITROGEN 16 mg/dL (7-18); eGFR NON AFRICAN AMERICAN 47 mL/min (90-120)
[2017-08-29 08:10] LABS: CHOL - HDL RATIO 3.3 ratio (2.3-4.1); CHOLESTEROL, TOTAL 158 mg/dL (0-200); CKMB 0.5 U/L (0.0-3.6); CREATINE KINASE 42 UL (21-215); HDL CHOLESTEROL 48 mg/dL (32-96); LDL CHOLESTEROL 91 mg/dL (0-100); LDL-HDL RATIO 1.9 ratio (1.5-3.5); MAGNESIUM - SERUM 2.1 mg/dL (1.8-2.4); THYROID STIMULATING HORMONE 3.05 uIU/mL (0.36-3.74); TRIGLYCERIDE 95 mg/dL (30-200)
[2017-08-29 08:13] LABS: TROPONIN-I < 0.017 ng/mL (0.000-0.060)
[2017-08-29 11:46] VITALS: BP 154/85
[2017-08-29] MEDS ORDERED: PLAVIX75 MG PO (15:44)
[2017-08-29 16:00] VITALS: BP 154/85; Ht 165.1 cm; Wt 77.3 kg
== END 2017-08-29 16:45 | disposition home or self-care (01) ==
LOC: D.M2 07:00 → D.CATH 07:00 → D.ER 07:00 → EDSTATUS 09:24 → D.M2 09:35 → D.CATH 16:45
PROVIDERS: Family Medicine
DX: I25.110 Atherosclerotic heart disease of native coronary artery with unstable angina pectoris (principal); T82.855A Stenosis of coronary artery stent, initial encounter; I10 Essential (primary) hypertension; E78.5 Hyperlipidemia, unspecified; Z01.812 Encounter for preprocedural laboratory examination
CPT/HCPCS: 93458; C9600

== ENCOUNTER 2017-09-02 07:49 | Outpatient (CLI) | payer MEDICARE ==
[~2017-09-02] VITALS: Ht 165.1 cm; Wt 72.7 kg
--- NOTE | ~2017-09-02 | OP ---
PATIENT NAME: BLOSSOM ALMANZA MEDICAL RECORD: [id number] :48 LOCATION:D.CAT ADMISSION DATE: SURGEON: MILY BEASLEY MD DATE OF OPERATION: 09/02/2017 PROCEDURES: 1. PTCA stent LAD. 2. PTCA LAD diagonal. 3. Selective coronary angiography. INDICATION: Angina and coronary artery disease. PROCEDURE IN DETAIL: After informed consent was obtained and after a detailed description of risks, benefits as well as alternative therapies, the patient elected to proceed with angiogram and angioplasty. The right femoral area was prepped and draped in normal sterile fashion. Right femoral artery was cannulated via modified Seldinger technique with placement of 6-Bhutanese sheath. All catheters exchanged through this sheath. FINDINGS: The left anterior descending has 75% stenosis in mid vessel that affects the LAD and the diagonal. The LAD was stented with a 3.5 x 18 and 3.0 x 8 mm Bandar stents. The diagonal was ballooned with a 2.5 balloon. Result was 0% residual throughout. OVERALL IMPRESSION: Successful PTCA stent of the LAD going from 75% initial stenosis to 0% residual. TRANSINT:[id number] Voice Confirmation ID: [id number] DOCUMENT ID: [id number] MILY BEASLEY MD at 1403 CC: [id number] DICTATION DATE: 09/02/17 1042 ELECTROLYTIC DE SCALER: 09/02/17 1249 DEP CLI 09/02/17 [place] [id number]
--- NOTE | ~2017-09-02 | HEMODYNAMI ---
PATIENT:BLOSSOM ALMANZA MEDICAL RECORD: [id number] : 48 LOCATION:D.CAT ADMISSION DATE: 09/02/17 Generatedon:09/02/201710:49 Patient name: BLOSSOM ALMANZA Patient #: [id number] SSN: DO B: 1950 Date of study: 09/02/2017 Page: Of Hemodynamic Procedure Report Patient Data Patient Demographics Procedure consent was obtained First Name: BLOSSOM Gender: Female Last Name: CAMI : 1950 [facility] Initial: STACI Age: 67 year(s) Patient #: [id number] Race: Unknown Additional ID: [id number] Contact details [address]: [address] [place] [address] State: [place] City: [place] Zip code: [address] Past Medical History Allergies Allergen Reaction Date Comments Reported Codeine 01/22/2016 Other allergy 01/22/2016 Kell NSAIDs 01/22/2016 Penicillins 01/22/2016 Other allergy 01/22/2016 Singulair, Phenergan, Solu-Medrol Other allergy 09/02/2017 PCN, NSAIDS, CODEINE, NORCO, DILAUDID, SOLUMEDROL, SINGULAR, PHENERGAN Admission Admission Data Admission Date: 09/02/2017 Admission Time: 7:49 Admit Source: Other Lab Results Lab Result Date: 09/02/2017 Lab Result Time: 0:00 Biochemistry Name Units Result Min Max BUN mg/dl 18 --(---*)-- 7 18 Creatinine mg/dl 1.2 --(---*)-- 0.6 1.3 CBC Name Units Result Min Max Hemoglobin g/dl 15 --(-*--)-- 13.5 17.5 Procedure Procedure Types Cath Procedure Diagnostic Procedure Sedation Charges Moderate Sedation up to 15 minutes PCI Procedure Coronary Stent Coronary Stent Initial PTCA PTCA Additional Procedure Description Procedure Date Procedure Date: 09/02/2017 Procedure Start Time: 10:18 Procedure End Time: 10:39 Procedure Staff Name Function Rafal Barkley MD Performing Physician Nita Mcarthur RT Monitor Donny Asher RT Scrub Robert Mcknight RN Nurse Procedure Data Cath Procedure Fluoroscopy Diagnostic fluoroscopy Total fluoroscopy Time: 6.2 time: 6.2 min min Diagnostic fluoroscopy Total fluoroscopy dose: 494 dose: 494 mGy mGy Contrast Material Contrast Material Type Amount (ml) Isovue 300 102 Entry Location Entry Primary Successful Side Size Upsize Upsize Entry Closure Succes sful Closure Location (Fr) 1 (Fr) 2 (Fr) Remarks Device Remarks Femoral Right 6 Fr Exoseal artery Short Estimated blood loss: 10 ml Procedure Complications No complications Procedure Medications Medication Administration Route Dosage 0.9% NaCl I.V. 100 ml/hr Oxygen etCO2 Nasal cannula 2 l/min Heparin Flush Bag added to field 2 bags (1000units/500ml NS) Lidocaine 2% added to field 20 Versed I.V. 1 mg Fentanyl I.V. 50 mcg Versed I.V. 1 mg Fentanyl I.V. 50 mcg Heparin Bolus I.V. 4000 units Versed I.V. 1 mg Hemodynamics Rest HGB: 15 (g/dl) Heart Rate: 61 (bpm) Snapshots Pre Cath Intra NCS Post Cath Vital Signs Time Heart Resp SPO2 etCO2 NIBP (mmHg) Rhythm Pain Sedation Rate (ipm) (%) (mmHg) Status Level (bpm) 10:12:43 59 12 100 35.2 171/89(138) NSR 0 (11) 10(A) , No pain 10:17:26 59 11 98 13.4 147/87(121) NSR 0 (11) 10(A) , No pain 10:22:10 59 12 93 2.2 142/85(124) NSR 0 (11) 10(A) , No pain 10:26:49 62 12 95 38.9 128/76(99) NSR 0 (11) 10(A) , No pain 10:32:08 68 15 97 39.7 150/80(107) NSR 0 (11) 9(A) , No pain 10:36:53 70 12 98 38.9 146/84(120) NSR 0 (11) 9(A) , No pain Medications Time Medication Route Dose Verified Delivered Reason Notes Effectiveness by by 10:11:50 0.9% NaCl I.V. 100 Robert Jones Per physician ml/hr Lorigan Lorigan RN RN 10:12:04 Oxygen etCO2 2 Robert Robert Per physician Nasal l/min Roxanna Mcknight cannula RN RN 10:12:19 Heparin Flush added 2 Robert Robert used for Bag to bags Roxanna Mcknight procedure (1000units/500ml RN RN NS) 10:12:35 Lidocaine 2% added 20ml Robert Robert for local to vial Lorigan Roxanna anesthetic field RN RN 10:16:47 Versed I.V. 1 mg Robert Robert for sedation Roxanna Mcknight RN RN 10:16:55 Fentanyl I.V. 50 Robert Robert for sedation mcg Roxanna Mcknight RN RN 10:20:04 Versed I.V. 1 mg Robert Robert for sedation Roxanna Mcknight RN RN 10:20:08 Fentanyl I.V. 50 Robert Robert for sedation mcg Roxanna Mcknight RN RN 10:21:36 Heparin Bolus I.V. 4000 Robert Robert for units Lorigan Roxanna anticoagulation RN RN 10:21:43 Versed I.V. 1 mg Robert Robert for sedation Roxanna Mcknight RN director of communications Log Time Note 9:55:46 Informed consent obtained and on chart 9:55:50 Admit Source: Other 9:56:09 Diagnostic Cath status Elective 9:56:10 Time tracking: Regular hours (M-F 7:00 - 5:00) 9:56:13 Plan of Care:Hemodynamics will remain stable., Cardiac rhythm will remain stable., Comfort level will be maintained., Respiratory function will remain adequate., Patient/ family verbilizes understanding of procedure., Procedure tolerated without complication., Recovers from procedure without complications.. 9:56:17 Nita Mcarthur RT(R) sent for patient. Start room use. 10:03:17 Patient received from Pre/Post Procedure Room to CCL 1 Alert and oriented. Tansferred to table in Supine position. 10:03:19 Warm blankets applied, and alejandra hugger turned on for patient comfort. 10:03:19 Correct patient and procedure confirmed by team. 10:03:20 ECG and BP/O2 sat monitors applied to patient. 10:03:39 Lab Result : Creatinine 1.2 mg/dl 10:03:39 Lab Result : BUN 18 mg/dl 10:03:39 Lab Result : Hemoglobin 15 g/dl 10:11:44 Vital chart was started 10:11:47 Baseline sample Acquired. 10:11:50 0.9% NaCl 100 ml/hr I.V. was administered by Robert Mcknight RN; Per physician; 10:11:51 Rhythm: sinus rhythm 10:11:52 Full Disclosure recording started 10:11:57 Pre-procedure instructions explained to patient. 10:11:58 Pre-op teaching completed and patient verbalized understanding. 10:11:59 Family in patients room. 10:12:01 Patient NPO since Midnight. 10:12:04 Oxygen 2 l/min etCO2 Nasal cannula was administered by Robert Mcknight RN; Per physician; 10:12:19 Heparin Flush Bag (1000units/500ml NS) 2 bags added to field was administered by Robert Mcknight RN; used for procedure; 10:12:33 Patient allergic to Other allergyPCN, NSAIDS, CODEINE, NORCO, DILAUDID, SOLUMEDROL, SINGULAR, PHENERGAN 10:12:35 Lidocaine 2% 20ml vial added to field was administered by Robert Mcknight RN; for local anesthetic; 10:12:35 Is the patient allergic to Iodine/contrast media? No. 10:12:39 Is patient on blood thinner?Yes 10:12:42 ACC The patient was administered the following blood thiners within the last 24 hours: ACCPlavix 10:12:43 Patient diabetic? No. 10:12:46 Patient not . Patient is over age 55. 10:12:48 Previous problem with sedation/anesthesia? No ? 10:12:49 Snore? Yes 10:12:50 Sleep apnea? No 10:12:51 Deviated septum? No 10:12:52 Opens mouth fully? Yes 10:12:53 Sticks out tongue? Yes 10:12:56 Airway obstruction? Yes ASTHMA 10:12:59 Dentures? No ? 10:13:02 Pre procedure: right dorsailis pedis pulse 2+ Normal; easily identifiable; not easily obliterated 10:13:05 Patient pain scale 0/10 ?. 10:13:14 H&P Date Dictated: 09/02/2017 Within 30 days and on chart., H&P Addendum completed by physician on day of procedure. (MUST COMPLETE FOR ALL OUTPATIENTS). 10:13:18 IV patent on arrival in left forearm with 0.9% NaCl at [facility]. 10:13:21 Lab results completed and on chart. 10:13:24 Right groin area was prepped with chlora-prep and draped in sterile fashion 10:13:25 Alarms reviewed by R. N. 10:13:25 Sharps counted by scrub and verified by R.N. 10:13:30 Use device set CATH PACK 10:13:31 ACIST Syringe (93997) opened to sterile field. 10:13:31 ACIST Hand Control (48776) opened to sterile field. 10:13:31 ACIST Manifold (01566) opened to sterile field. 10:13:32 Medline Cath Pack ([id number]) opened to sterile field. 10:13:32 Bag Decanter (2002S) opened to sterile field. 10:13:33 DIAGNOSTIC WIRE .035 260cm J wire (240303) opened to sterile field. 10:14:20 SHEATH 6FR [place] (UBS296) opened to sterile field. 10:14:20 CHOICE PT Extra Support 182cm wire ([id number]) opened to sterile field. 10:14:28 GUIDE 6FR EBU 3.5 catheter ([id number]) opened to sterile field. 10:15:43 INFLATOR Merit BasixCompak (BA1047) opened to sterile field. 10:16:26 --------ALL STOP TIME OUT------ 10:16:26 Final Timeout: patient, procedure, and site verified with staff and physician. All members of the team are in agreement. 10:16:28 Right groin site verified by team. 10:16:31 Physical assessment completed. ASA score P 2 - A patient with mild systemic disease as per Rafal Barkley MD. 10:16:35 Sedation plan: IV Moderate Sedation Medication:Versed, Fentanyl 10:16:47 Versed 1 mg I.V. was administered by Robert Mcknight RN; for sedation; 10:16:55 Fentanyl 50 mcg I.V. was administered by Robert Mcknight RN; for sedation; 10:18:31 Zero performed for pressure channel P1 10:18:35 Procedure started. 10:18:38 Local anesthetic to right femoral artery with Lidocaine 2% by Rafal Barkley MD.INITIAL ACCESS ONLY 10:18:45 Zero performed for pressure channel P1 10:18:51 Zero performed for pressure channel P1 10:19:06 A 6 Fr Short sheath was inserted into the Right Femoral artery 10:19:13 Zero performed for pressure channel P1 10:19:43 6 Fr EBU 3.5 guide catheter was inserted over the wire 10:20:04 Versed 1 mg I.V. was administered by Robert Mcknight RN; for sedation; 10:20:08 Fentanyl 50 mcg I.V. was administered by Robert Mcknight RN; for sedation; 10:20:44 CHOICE ES 182 wire advanced. 10:21:36 Heparin Bolus 4000 units I.V. was administered by Robert Mcknight RN; for anticoagulation; 10::43 Versed 1 mg I.V. was administered by Robert Mcknight RN; for sedation; 10:21:55 Wire advanced across lesion. 10:23:13 Place stent Inflation Number: 1 A RHETT RX 3.5 x 18 stent ([id number]) was prepped and advanced across the Mid LAD. The stent was deployed at 13 MAXX for 0:10 (min:sec). 10:23:36 Inflation number: 2 The stent balloon was then re-inflated across the Mid LAD to 17 MAXX for 0:10 (min:sec). 10:23:56 Wire removed. 10:24:02 Stent catheter was removed intact over wire. 10:24:57 CHOICE PT Extra Support 182cm wire ([id number]) opened to sterile field. 10:26:14 Guide catheter removed. 10:26:28 GUIDE 6FR EBU 4.0 guide catheter ([id number]) opened to sterile field. 10:26:40 6 Fr EBU 4 guide catheter was inserted over the wire 10:27:57 CHOICE ES 182 wire advanced. 10:28:46 Wire advanced across lesion. 10:31:38 Inflate balloon Inflation number: 1 A EUPHORA 2.5 x 10 Balloon ([id number]) was prepped and advanced across the 1st Diag, then inflated to 11 MAXX for 0:10 (min:sec). 10:32:18 Wire redirected to LAD. 10:32:27 Balloon removed over the wire. 10:33:53 Place stent Inflation Number: 3 A RHETT RX 3.0 x 08 stent ([id number]) was prepped and advanced across the Mid LAD. The stent was deployed at 11 MAXX for 0:10 (min:sec). 10:34:08 Inflation number: 4 The stent balloon was then re-inflated across the Mid LAD to 15 MAXX for 0:10 (min:sec). 10:34:32 Stent catheter was removed intact over wire. 10:34:33 Wire removed. 10:34:33 Guide catheter removed. 10:34:38 EXOSEAL 6Fr (EX600) opened to sterile field. 10:34:49 Sheath removed intact; hemostasis achieved with Exoseal to the Right Femoral artery. 10:35:36 Procedure ended.(Physican Out) 10:37:19 Fluoroscopy time 06.20 minutes. 10:37:23 Fluoroscopy dose: 494 mGy 10:37:23 Flurop Dose total: 494 10:37:27 Contrast amount:Isovue 300 102ml. 10:37:28 Sharps counted by scrub and verified by R.N. 10:37:33 Post-op/insertion site Right Femoral artery dressed using a 4 x 4 and Tegaderm. 10:37:36 Post right femoral artery:stable, soft, clean and dry 10:37:39 Post-procedure physical assessment completed. ASA score P 2 - A patient with mild systemic disease as per Rafal Barkley MD. 10:37:41 Post procedure: right dorsailis pedis pulse 2+ Normal; easily identifiable; not easily obliterated. 10:37:46 Post procedure rhythm: unchanged. 10:37:48 Estimated blood loss: 10 ml 10:37:49 Post procedure instruction explained to patient.Patient verbalizes understanding. 10:37:49 Patient needs reinforcement of post procedure teaching. 10:38:45 Procedure type changed to Cath procedure, Diagnostic procedure, Sedation Charges, Moderate Sedation up to 15 minutes, PCI procedure, Coronary Stent, Coronary Stent Initial, PTCA, PTCA Additional 10:39:15 Procedure and supply charges have been captured, reviewed, submitted and are correct. 10:39:18 Procedure Complication : No complications 10:39:20 Vital chart was stopped 10:39:20 See physician's report for complete and final results. 10:39:22 Report given to Pre/Post Procedure Room. 10:39:24 Patient transfered to Pre/Post Procedure Room with Bed. 10:39:26 Procedure ended. 10:39:26 Full Disclosure recording stopped 10:39:31 End room use (Document Last) 10:48:05 Femstop placed over the right femoral artery at 140 mmHg. Hemostasis achieved. Intervention Summary Intervention Notes Time ActionType Lesion and Equipment Used Action# Pressure Duration Attributes 10:23:13 Place stent Mid LAD RHETT RX 3.5 x 1 13 00:10 18 stent ([id number]) 10:23:36 Reinflate Mid LAD RHETT RX 3.5 x 2 17 00:10 stent 18 stent balloon ([id number]) 10:31:38 Inflate 1st Diag EUPHORA 2.5 x 1 11 00:10 balloon 10 Balloon ([id number]) 10:33:53 Place stent Mid LAD RHETT RX 3.0 x 3 11 00:10 08 stent ([id number]) 10:34:08 Reinflate Mid LAD RHETT RX 3.0 x 4 15 00:10 stent 08 stent balloon ([id number]) Device Usage Item Name Manufacture Quantity Catalog Number Hospital Part Current M inimal Lot# / Charge Number Stock Stock Serial# Code ACIST Syringe Acist 1 11301 702549 305166 249573 2 0 (41446) Medical Systems Inc ACIST Hand Acist 1 31133 643568 293069 422127 5 Control Medical (60149) Systems Inc ACIST Manifold Acist 1 48932 781801 172733 634220 5 (14714) Medical Systems Inc Medline Cath Cardinal 1 [id number] 214390 43341 196461 5 [facility] ([id number]) Bag Decanter Microtek 1 2001S 302803 01896 555580 5 (2001S) Medical Inc. DIAGNOSTIC St Vivek 1 106471 975935 508034 749964 3 0 WIRE .035 260cm J wire (796201) SHEATH 6FR Terumo 1 [id number] 491095 313976 877104 4 0 [place] (YQJ294) CHOICE PT [place] 2 [id number] 890088 469814 416542 5 Extra Support Scientific 182cm wire ([id number]) GUIDE 6FR EBU Medtronic 1 [id number] 393623 46022 016839 3 3.5 catheter ([id number]) INFLATOR Merit Merit 1 [id number] 827804 685297 917461 1 5 [facility] (JY1313) RHETT RX 3.5 x Medtronic 1 [id number] 049021 7936370 182428 5 [id number] 18 stent ([id number]) GUIDE 6FR EBU Medtronic 1 [id number] 602833 64427 102658 1 4.0 guide catheter ([id number]) EUPHORA 2.5 x Medtronic 1 [id number] 578504 509579 535785 5 [id number] 10 Balloon ([id number]) RHETT RX 3.0 x Medtronic 1 [id number] 111579 7626461 595154 5 [id number] 08 stent ([id number]) EXOSEAL 6Fr Cardinal 1 EX600 397608 289758 900993 1 0 (EX600) Health Signature Audit [place] Stage Time Signature Unsigned Intra-Procedure 09/02/2017 Nita Mcarthur 10:48:58 AM RT(R) Signatures Monitor : Nita Mcarthur Signature : RT Date : Time : [address] [address]
--- NOTE | ~2017-09-02 | HP ---
PATIENT: BLOSSOM ALMANZA MEDICAL RECORD: [id number] ACCOUNT: [id number] LOCATION:MIT[facility]Y : 48 ADMISSION DATE: 09/02/17 HISTORY AND PHYSICAL EXAMINATION DATE OF SERVICE: 09/02/2017 ADMITTING DIAGNOSES: 1. Angina. 2. Coronary artery disease. 3. Recent percutaneous transluminal coronary angioplasty stent of the left circumflex with concomitant disease of left anterior descending. HISTORY OF PRESENT ILLNESS: Mrs. Almanza presents with anginal symptomatology, found to have 2-vessel coronary artery disease, underwent successful PTCA stent of circumflex, now brought back for PTCA stent of the LAD. REVIEW OF SYSTEMS: The patient reports easy bruising but reports no swollen glands. The patient reports no fever, no night sweats, no significant weight gain, no significant weight loss. No significant exercise tolerance. The patient reports no dry eyes, no irritation, no vision change. Patient reports no difficulty hearing and no ear pain. Patient reports no frequent nose bleeds or nose and sinus problems. Patient reports on arm pain on exertion. No shortness of breath while lying down. No history of heart murmur. Patient reports no cough, no wheezing or coughing up blood. Patient reports no abdominal pain, no vomiting. Normal appetite. No diarrhea and not vomiting blood. No nausea and no constipation. Patient reports no incontinence. No difficulty urinating. No hematuria. No increased frequency. Patient reports no muscle aches. No weakness, no arthralgias, no back pain. No swelling of the extremities. Patient reports no abnormal mole, no jaundice, no rashes. Reports no loss of consciousness. No weakness and no numbness. No seizures, dizziness, or headaches. The patient reports no depression, no sleep disturbance, feeling safe in a relationship and no alcohol abuse. Patient reports on fatigue. Reports no runny nose or sinus pressure. No itching, no hives, and no frequent sneezing. PHYSICAL EXAMINATION: GENERAL APPEARANCE: Well-nourished, well-developed, appears stated age. Level of distress, comfortable. PSYCHIATRIC: Mental status, alert, normal affect. Orientation, oriented to time, place and person. EYES: Lids and conjunctiva, noninjected. No discharge, no pallor. ENT: Lips, teeth, gums, normal dentition. Oropharynx, no cyanosis, no pallor. NECK: Carotid arteries, bilateral normal upstroke, no bruits, no thrills. JUGULAR VEINS: No jugular venous pressure or distention. CERVICAL LYMPH NODES: Nontender, nonenlarged. THYROID: Not enlarged. Nontender. No nodules. LUNGS: Respiratory effort, unlabored. CHEST: Normal curvature. No thoracic deformity. No chest wall tenderness. Percussion, resonant. Auscultation, clear. No wheezes, no rales, no rhonchi. CARDIOVASCULAR: Precordial exam, nondisplaced. No heaves or pericardial thrills. Rate and rhythm, regular. Heart sounds, normal S1, normal S2. No S3, no gallop, no rub. Systolic murmur, not heard. Diastolic murmur, not heard. EXTREMITIES: No cyanosis, no edema. Peripheral pulses, full and equal in all extremities, except as noted. No bruits appreciated. HISTORY AND PHYSICAL [id number] BLOSSOM ALMANZA ABDOMEN: Soft, nondistended. Normal aorta. No bruit. Nontender. No masses. Liver, nontender, no hepatomegaly. Spleen, nontender, no splenomegaly. MUSCULOSKELETAL: No joint tenderness. No joint swelling. No erythema. NEUROLOGICAL: Normal gait, normal strength, normal tone. SKIN: Warm and dry. OVERALL IMPRESSION: Anginal symptomatology with significant disease of the left anterior descending. We will proceed with percutaneous transluminal coronary angioplasty stent of the left anterior descending. TRANSINT:[id number] Voice Confirmation ID: [id number] DOCUMENT ID: [id number] MILY BEASLEY MD at 1403 CC: [id number] DICTATION DATE: 09/02/17 1015 OPTICIAN APPRENTICE DISPENSING: 09/02/17 1059 DEP CLI 09/02/[address] [address]
[2017-09-02] MEDS ORDERED: PROTONIX20 MG PO (08:24)
[2017-09-02 08:30] VITALS: BP 167/93; Ht 165.1 cm; Wt 72.7 kg
[2017-09-02 08:40] LABS: BASOPHILS 0.5 % (0-2); HEMATOCRIT 44.3 % (36.0-48.0); IMMATURE GRANULOCYTES 0.1 % (0-5); LYMPHOCYTES 29.3 % (15-50); MCH 29.8 pg (26.0-34.0); MCHC 33.9 g/dL (31.0-37.0); MCV 88.1 fL (80.0-100.0); MEAN PLATELET VOLUME 10.3 fL (7.4-10.4); MONOCYTES 8.7 % (2-11); NEUTROPHILS 58.4 % (40-80); PLATELET COUNT 264 10x3/uL (130-400); RBC 5.03 10x6/uL (4.00-5.40); WBC 7.4 10x3/uL (4.8-10.8)
[2017-09-02 09:06] LABS: ANION GAP 14.7 mmol/L (8-16); CALCIUM 9.6 mg/dL (8.5-10.1); CREATININE - SERUM 1.2 mg/dL (0.6-1.3); POTASSIUM - SERUM 4.7 mmol/L (3.5-5.1)
== END 2017-09-02 14:49 ==
LOC: D.CATH 07:49
PROVIDERS: Internal Medicine Interventional Cardiology
DX: I25.119 Atherosclerotic heart disease of native coronary artery with unspecified angina pectoris (principal); Z95.5 Presence of coronary angioplasty implant and graft; Z01.812 Encounter for preprocedural laboratory examination

== ENCOUNTER 2017-09-09 09:32 | Emergency (ER) | payer MEDICARE ==
[~2017-09-09] VITALS: Ht 165.1 cm; Wt 77.3 kg
--- NOTE | ~2017-09-09 | CN ---
PATIENT NAME:BLOSSOM ALMANZA MEDICAL RECORD: [id number] : 48 LOCATION:.ER ADMIT DATE: ACCOUNT: [id number] CONSULTING PHYSICIAN: MILY BEASLEY MD REFERRING PHYSICIAN: MAKI CHACON MD DATE OF CONSULTATION: 09/09/2017 DIAGNOSES: 1. Angina. 2. Coronary disease. 3. Recent PTCA and stent to LAD and circumflex. 4. Hypertension. 5. Hyperlipidemia. HISTORY: Mrs. Almanza presents with chest discomfort. She recently underwent PTCA and stent of her LAD as well as circumflex. The RCA had no significant disease. Her EKG is with no changes. She has been having intermittent chest discomfort. Her systolic blood pressures is in 180s. REVIEW OF SYSTEMS: The patient reports easy bruising but reports no swollen glands. The patient reports no fever, no night sweats, no significant weight gain, no significant weight loss. No significant exercise tolerance. The patient reports no dry eyes, no irritation, no vision change. Patient reports no difficulty hearing and no ear pain. Patient reports no frequent nose bleeds or nose and sinus problems. Patient reports on arm pain on exertion. No shortness of breath while lying down. No history of heart murmur. Patient reports no cough, no wheezing or coughing up blood. Patient reports no abdominal pain, no vomiting. Normal appetite. No diarrhea and not vomiting blood. No nausea and no constipation. Patient reports no incontinence. No difficulty urinating. No hematuria. No increased frequency. Patient reports no muscle aches. No weakness, no arthralgias, no back pain. No swelling of the extremities. Patient reports no abnormal mole, no jaundice, no rashes. Reports no loss of consciousness. No weakness and no numbness. No seizures, dizziness, or headaches. The patient reports no depression, no sleep disturbance, feeling safe in a relationship and no alcohol abuse. Patient reports on fatigue. Reports no runny nose or sinus pressure. No itching, no hives, and no frequent sneezing. PHYSICAL EXAMINATION: GENERAL APPEARANCE: Well-nourished, well-developed, appears stated age. Level of distress, comfortable. PSYCHIATRIC: Mental status, alert, normal affect. Orientation, oriented to time, place and person. EYES: Lids and conjunctiva, noninjected. No discharge, no pallor. ENT: Lips, teeth, gums, normal dentition. Oropharynx, no cyanosis, no pallor. NECK: Carotid arteries, bilateral normal upstroke, no bruits, no thrills. JUGULAR VEINS: No jugular venous pressure or distention. CERVICAL LYMPH NODES: Nontender, nonenlarged. THYROID: Not enlarged. Nontender. No nodules. LUNGS: Respiratory effort, unlabored. CHEST: Normal curvature. No thoracic deformity. No chest wall tenderness. Percussion, resonant. Auscultation, clear. No wheezes, no rales, no rhonchi. CARDIOVASCULAR: Precordial exam, nondisplaced. No heaves or pericardial thrills. Rate and rhythm, regular. Heart sounds, normal S1, normal S2. No S3, no gallop, no rub. Systolic murmur, not heard. Diastolic murmur, not heard. CONSULT REPORT [id number] BLOSSOM ALMANZA EXTREMITIES: No cyanosis, no edema. Peripheral pulses, full and equal in all extremities, except as noted. No bruits appreciated. ABDOMEN: Soft, nondistended. Normal aorta. No bruit. Nontender. No masses. Liver, nontender, no hepatomegaly. Spleen, nontender, no splenomegaly. MUSCULOSKELETAL: No joint tenderness. No joint swelling. No erythema. NEUROLOGICAL: Normal gait, normal strength, normal tone. SKIN: Warm and dry. OVERALL IMPRESSION: Chest discomfort, continuous. There are no other hemodynamically significant stenoses that need attention. No EKG changes. We will start her on Imdur 60 mg b.i.d. to see if this resolves her angina. If so, we will continue the Imdur. We will see her back as previously scheduled. TRANSINT:[id number] Voice Confirmation ID: [id number] DOCUMENT ID: [id number] MILY BEASLEY MD at 1705 CC: [id number] DICTATION DATE: 09/09/17 112 CNC LATHE MACHINE OPERATOR: 09/09/17 1303 DEP ER 09/09/17 [place] [id number] [place] [id number]
[~2017-09-09 09:32] MED LIST changes: +PROTONIX20 MG PO
[2017-09-09 09:35] VITALS: Ht 165.1 cm; Wt 77.3 kg
[2017-09-09 10:20] LABS: BASOPHILS 0.5 % (0-2); HEMATOCRIT 42.2 % (36.0-48.0); HEMOGLOBIN 14.2 g/dL (12-16); IMMATURE GRANULOCYTES 0.3 % (0-5); LYMPHOCYTES 40.4 % (15-50); MCHC 33.6 g/dL (31.0-37.0); MEAN PLATELET VOLUME 10.4 fL (7.4-10.4); MONOCYTES 9.2 % (2-11); NEUTROPHILS 44.6 % (40-80); PLATELET COUNT 253 10x3/uL (130-400); RBC 4.74 10x6/uL (4.00-5.40); RDW 12.9 % (11.5-14.5); WBC 7.4 10x3/uL (4.8-10.8)
[2017-09-09 10:39] LABS: APTT 24.2 SECONDS (22.8-39.4); INR 0.97 (0.85-1.17); PROTIME 12.5 SECONDS (11.6-15.0)
[2017-09-09 10:59] LABS: ALBUMIN 3.7 g/dL (3.4-5.0); ALKALINE PHOSPHATASE 58 U/L (46-116); ALT (SGPT) 22 U/L (10-68); BILIRUBIN - TOTAL 0.54 mg/dL (0.2-1.3); CALC OSMOLALITY 282 mosm/kg (275-300); CALCIUM 9.5 mg/dL (8.5-10.1); CHLORIDE - SERUM 102 mmol/L (98-107); CREATININE - SERUM 1.1 mg/dL (0.6-1.3); GLUCOSE 128 mg/dL (74-106); POTASSIUM - SERUM 4.8 mmol/L (3.5-5.1); PROTEIN - SERUM 7.1 g/dL (6.4-8.2); SODIUM 139 mmol/L (136-145); UREA NITROGEN 20 mg/dL (7-18); eGFR NON AFRICAN AMERICAN 52 mL/min (90-120)
[2017-09-09 11:11] LABS: CKMB 0.6 U/L (0.0-3.6); CREATINE KINASE 59 UL (21-215); PRO BNP 221 pg/mL (0-125)
[2017-09-09 11:13] LABS: TROPONIN-I < 0.017 ng/mL (0.000-0.060)
[2017-09-09 11:21] LABS: APPEARANCE CLEAR (CLEAR); BILIRUBIN NEGATIVE (NEGATIVE); COLOR YELLOW (YELLOW); GLUCOSE NEGATIVE (NEGATIVE); KETONE NEGATIVE (NEGATIVE); NITRITE NEGATIVE (NEGATIVE); PROTEIN NEGATIVE (NEGATIVE); UROBILINOGEN NORMAL (NORMAL)
[2017-09-09 11:23] LABS: BACTERIA FEW /hpf (NONE SEEN); EPITHELIAL CELLS RARE /hpf (0-5); WHITE CELLS - URINE RARE /hpf (0-5)
[2017-09-09] MEDS ORDERED: ISOSORBIDE MONO30 M1 PO (15:27)
[2017-09-09 16:00] VITALS: BP 129/72
== END 2017-09-09 15:51 | disposition home or self-care (01) ==
LOC: D.ER 09:32
PROVIDERS: Family Medicine
DX: R07.9 Chest pain, unspecified (principal); I25.10 Atherosclerotic heart disease of native coronary artery without angina pectoris; R06.02 Shortness of breath; R00.2 Palpitations; I10 Essential (primary) hypertension

== ENCOUNTER → 2018-04-22 14:15 | Outpatient (CLI) | payer MEDICARE ==
[2017-09-09 09:35] VITALS: BMI 28.3
[~2018-04-22 14:15] MED LIST changes: +ISOSORBIDE MONO30 M1 PO
== END | disposition home or self-care (01) ==
LOC: D.CT 14:15
DX: R63.4 Abnormal weight loss (principal); R10.9 Unspecified abdominal pain

== ENCOUNTER 2018-05-15 15:52 | Emergency (ER) | payer MEDICARE ==
[~2018-05-15] VITALS: Ht 165.1 cm; Wt 75.0 kg
[2018-05-15 15:59] VITALS: Ht 165.1 cm; Wt 75.0 kg
[2018-05-15 16:13] LABS: BASOPHILS 0.6 % (0-2); HEMATOCRIT 44.4 % (36.0-48.0); IMMATURE GRANULOCYTES 0.1 % (0-5); LYMPHOCYTES 41.9 % (15-50); MCH 29.9 pg (26.0-34.0); MCHC 33.8 g/dL (31.0-37.0); MCV 88.4 fL (80.0-100.0); MONOCYTES 12.3 % (2-11); NEUTROPHILS 42.1 % (40-80); PLATELET COUNT 301 10x3/uL (130-400); RBC 5.02 10x6/uL (4.00-5.40); WBC 8.3 10x3/uL (4.8-10.8)
[2018-05-15 16:29] LABS: APTT 25.4 SECONDS (22.8-39.4); PROTIME 12.7 SECONDS (11.6-15.0)
[2018-05-15 16:36] LABS: ALKALINE PHOSPHATASE 58 U/L (46-116); ALT (SGPT) 18 U/L (10-68); BILIRUBIN - TOTAL 0.34 mg/dL (0.2-1.3); CALC OSMOLALITY 282 mosm/kg (275-300); CALCIUM 9.1 mg/dL (8.5-10.1); CARBON DIOXIDE 26.5 mmol/L (21.0-32.0); CHLORIDE - SERUM 105 mmol/L (98-107); CREATININE - SERUM 1.2 mg/dL (0.6-1.3); GLUCOSE 117 mg/dL (74-106); POTASSIUM - SERUM 4.1 mmol/L (3.5-5.1); PROTEIN - SERUM 7.6 g/dL (6.4-8.2); SODIUM 141 mmol/L (136-145); UREA NITROGEN 14 mg/dL (7-18); eGFR NON AFRICAN AMERICAN 47 mL/min (90-120)
[2018-05-15 16:50] LABS: CKMB 1.1 U/L (0.0-3.6); CREATINE KINASE 62 UL (21-215)
[2018-05-15 16:51] LABS: TROPONIN-I < 0.017 ng/mL (0.000-0.060)
[2018-05-15 19:14] LABS: CREATINE KINASE 65 UL (21-215); TROPONIN-I < 0.017 ng/mL (0.000-0.060)
[2018-05-15 20:16] VITALS: BP 135/86
== END 2018-05-15 20:12 | disposition home or self-care (01) ==
LOC: D.ER 15:52
PROVIDERS: Family Medicine
DX: R07.89 Other chest pain (principal); J45.909 Unspecified asthma, uncomplicated; I25.10 Atherosclerotic heart disease of native coronary artery without angina pectoris; I10 Essential (primary) hypertension

== ENCOUNTER 2018-05-29 20:04 | Inpatient (IN) | payer MEDICARE ==
[~2018-05-29] VITALS: Ht 165.1 cm; Wt 75.0 kg
--- NOTE | ~2018-05-29 | CN ---
PATIENT NAME:BLOSSOM ALMANZA MEDICAL RECORD: [id number] : 48 LOCATION:D[facility] ADMIT DATE: 05/29/18 ACCOUNT: [id number] CONSULTING PHYSICIAN: CRUZ OLIVARES MD REFERRING PHYSICIAN: DAXA HDEZ MD DATE OF CONSULTATION: 05/31/2018 HISTORY: A 68-year-old female with a history of coronary artery disease, status post intervention, admitted with chest pain. Subsequent workup showed pancreatitis with elevated lipase. Cardiac enzymes are negative so far. ECG is unchanged. We are asked to see her concerning her cardiovascular status. PAST MEDICAL HISTORY: Includes; 1. History of hypothyroidism, on replacement. 2. Coronary artery disease as described above. 3. Gastroesophageal reflux disease. MEDICATIONS: Include atenolol 100 mg p.o. daily, fenofibrate 134 every day, Imdur 30 every day, Avapro 300 every day, Norvasc 5 every day, Cymbalta 60 every day, aspirin 81 every day, tramadol 50 every 6 hours p.r.n., Carafate 1 g before meals and at bedtime and Synthroid 88 mcg every day. SOCIAL HISTORY: Nonsmoker, nondrinker, does take care of ADLs, does tend to walk on a regular basis. REVIEW OF SYSTEMS: The patient reports easy bruising but reports no swollen glands. The patient reports no fever, no night sweats, no significant weight gain, no significant weight loss. No significant exercise tolerance. The patient reports no dry eyes, no irritation, no vision change. Patient reports no difficulty hearing and no ear pain. Patient reports no frequent nose bleeds or nose and sinus problems. Patient reports on arm pain on exertion. No shortness of breath while lying down. No history of heart murmur. Patient reports no cough, no wheezing or coughing up blood. Patient reports no abdominal pain, no vomiting. Normal appetite. No diarrhea and not vomiting blood. No nausea and no constipation. Patient reports no incontinence. No difficulty urinating. No hematuria. No increased frequency. Patient reports no muscle aches. No weakness, no arthralgias, no back pain. No swelling of the extremities. Patient reports no abnormal mole, no jaundice, no rashes. Reports no loss of consciousness. No weakness and no numbness. No seizures, dizziness, or headaches. The patient reports no depression, no sleep disturbance, feeling safe in a relationship and no alcohol abuse. Patient reports on fatigue. Reports no runny nose or sinus pressure. No itching, no hives, and no frequent sneezing. ALLERGIES: NONSTEROIDALS, PENICILLIN, CODEINE, HYDROCODONE AND SOLU-MEDROL. PHYSICAL EXAMINATION: GENERAL: Pleasant female in no acute distress, appears younger than stated age. VITAL SIGNS: Blood pressure 146/69, pulse 63 and regular. HEENT: Normocephalic and atraumatic. NECK: No JVD or bruit. HEART: Regular. LUNGS: Lung sales with good air excursion. ABDOMEN: Soft and nontender. EXTREMITIES: Pulses 2+. No edema. CONSULT REPORT [id number] BLOSSOM ALMANZA NEUROLOGIC: Grossly intact. DIAGNOSTIC DATA: ECG without acute change. IMPRESSION: Suspect noncardiac symptomology. Agree with current management of pancreatitis. Thank you for this consultation. TRANSINT:[id number] Voice Confirmation ID: [id number] DOCUMENT ID: [id number] CRUZ OLIVARES MD CC: [id number] DICTATION DATE: 05/31/18949 ADZING AND BORING MACHINE OPERATOR: 05/31/18 1226 ADM IN [facility] [address] [place] [address]
[2018-05-29] MEDS ORDERED: NORVASC5 MG PO (20:17)
[2018-05-29] MEDS ORDERED: PROVENTIL/2.5 MG/3 M INH (20:17)
[2018-05-29] MEDS ORDERED: VITAMIN D250000 UNIT PO (20:18)
[2018-05-29] MEDS ORDERED: CARAFATE1 G PO (20:18)
[2018-05-29 20:45] LABS: BASOPHILS 0.3 % (0-2); EOSINOPHILS 1.6 % (0-7); HEMATOCRIT 44.3 % (36.0-48.0); HEMOGLOBIN 15.1 g/dL (12-16); IMMATURE GRANULOCYTES 0.1 % (0-5); LYMPHOCYTES 21.4 % (15-50); MCH 30.1 pg (26.0-34.0); MCHC 34.1 g/dL (31.0-37.0); MCV 88.2 fL (80.0-100.0); MEAN PLATELET VOLUME 9.7 fL (7.4-10.4); MONOCYTES 10.3 % (2-11); NEUTROPHILS 66.3 % (40-80); PLATELET COUNT 252 10x3/uL (130-400); RBC 5.02 10x6/uL (4.00-5.40)
[2018-05-29 20:54] LABS: D-DIMER-QUANTITATIVE < 0.27 ug/mLFEU (0.20-0.54)
[2018-05-29 20:57] LABS: ALBUMIN 3.9 g/dL (3.4-5.0); ALKALINE PHOSPHATASE 52 U/L (46-116); ALT (SGPT) 18 U/L (10-68); BILIRUBIN - TOTAL 0.24 mg/dL (0.2-1.3); CALC OSMOLALITY 284 mosm/kg (275-300); CALCIUM 9.5 mg/dL (8.5-10.1); CARBON DIOXIDE 28.3 mmol/L (21.0-32.0); CHLORIDE - SERUM 104 mmol/L (98-107); CREATININE - SERUM 1.6 mg/dL (0.6-1.3); GLUCOSE 149 mg/dL (74-106); POTASSIUM - SERUM 4.3 mmol/L (3.5-5.1); PROTEIN - SERUM 7.3 g/dL (6.4-8.2); SODIUM 140 mmol/L (136-145); UREA NITROGEN 22 mg/dL (7-18); eGFR NON AFRICAN AMERICAN 34 mL/min (90-120)
[2018-05-29 21:00] LABS: APTT 23.3 SECONDS (22.8-39.4); INR 1.03 (0.85-1.17)
[2018-05-29 21:08] LABS: CKMB 0.6 U/L (0.0-3.6); LIPASE 718 U/L (73-393); TROPONIN-I < 0.017 ng/mL (0.000-0.060)
[2018-05-29 21:54] VITALS: BP 127/90
--- NOTE | 2018-05-29 22:18 | NUR ---
PT TRANSPORTED TO CT VIA W/C
--- NOTE | 2018-05-29 22:19 | NUR ---
PER EDP DARA DO NOT BOLUS FLUIDS.
[2018-05-30] VITALS: BP 164/95
[2018-05-30 00:10] VITALS: BP 164/95; Ht 165.1 cm; Wt 75.0 kg
--- NOTE | 2018-05-30 00:15 | NUR ---
PT ARRIVED TO FLOOR VIA WHEELCHAIR. AT BEDSIDE. PT UP AD LETI. IV LEFT HAND INFUSING NS @ 100. PT STATES PAIN IN ABD 5/10. RECIEVED MORPHINE IN ER. PT STATES SHE FEELS NAUSEAS SOMETIMES BUT NOT AT THIS TIME. STATES SHE HAS BEEN HAVING THIS ISSUE OFF AND ON FOR MONTHS AND HAS WEIGHT FROM IT. STATES SHE HAD A COLONOSCOPY AND EGD LAST MONTH WHICH SHOWED GASTRITIS AND ESOPHAGEAL HERNIA. ABD TENDER, NON DISTENDED. BOWEL SOUNDS HYPOACTIVE IN LOWER QUADS. STATES SHE HAS NOT ATE SINCE LUNCH. VSS. PT HAS BEEN NPO SINCE ARRIVING TO ER. DENIES NEEDS AT THIS TIME. CL IN REACH, WILL CONTINUE TO MONITOR
[2018-05-30 03:58] VITALS: BP 143/77
[2018-05-30 06:31] LABS: BASOPHILS 0.6 % (0-2); EOSINOPHILS 1.8 % (0-7); HEMATOCRIT 40.7 % (36.0-48.0); HEMOGLOBIN 13.6 g/dL (12-16); IMMATURE GRANULOCYTES 0.1 % (0-5); LYMPHOCYTES 40.3 % (15-50); MCH 29.4 pg (26.0-34.0); MCHC 33.4 g/dL (31.0-37.0); MCV 87.9 fL (80.0-100.0); MEAN PLATELET VOLUME 10.6 fL (7.4-10.4); MONOCYTES 8.2 % (2-11); PLATELET COUNT 247 10x3/uL (130-400); RBC 4.63 10x6/uL (4.00-5.40); RDW 13.1 % (11.5-14.5); WBC 8.8 10x3/uL (4.8-10.8)
[2018-05-30 07:13] LABS: ALBUMIN 3.4 g/dL (3.4-5.0); ANION GAP 13.1 mmol/L (8-16); BILIRUBIN - TOTAL 0.22 mg/dL (0.2-1.3); CALCIUM 8.3 mg/dL (8.5-10.1); CARBON DIOXIDE 24.7 mmol/L (21.0-32.0); CHOL - HDL RATIO 3.3 ratio (2.3-4.1); CREATININE - SERUM 1.2 mg/dL (0.6-1.3); LDL-HDL RATIO 1.8 ratio (1.5-3.5); PHOSPHOROUS 3.1 mg/dL (2.5-4.9); POTASSIUM - SERUM 3.8 mmol/L (3.5-5.1); PROTEIN - SERUM 6.3 g/dL (6.4-8.2)
--- NOTE | 2018-05-30 08:26 | NUR ---
PT ALERT X 4. BREATH SOUNDS CLEAR BILAT. IV TO LEFT HAND, PATENT, DRESSING CLEAN DRY AND INTACT. SITTING UP IN BED. GIVEN WATER. BED LOW, CALL LIGHT IN REACH. NO OTHER NEEDS AT THIS TIME.
[2018-05-30 08:42] VITALS: BP 119/80
[2018-05-30 16:16] LABS: APPEARANCE CLEAR (CLEAR); BILIRUBIN NEGATIVE (NEGATIVE); COLOR STRAW (YELLOW); GLUCOSE 100 mg/dL (NEGATIVE); KETONE NEGATIVE (NEGATIVE); NITRITE NEGATIVE (NEGATIVE); PROTEIN NEGATIVE (NEGATIVE); UROBILINOGEN NORMAL (NORMAL)
[2018-05-30 16:18] LABS: BACTERIA FEW /hpf (NONE SEEN); EPITHELIAL CELLS 0-5 /hpf (0-5); RED CELLS - URINE OCC /hpf (0-5); WHITE CELLS - URINE 0-5 /hpf (0-5)
[2018-05-30 18:17] VITALS: BP 147/72
--- NOTE | 2018-05-30 19:45 | NUR ---
PT SITTING UP IN BED W/O DISTRESS. ALERT AND ORIENTED. IV LEFT HAND INFUSING @ 50. PT STATES PAIN 5/10, DENIES NEEDS AT THIS TIME. CL IN REACH, WILL CONTINUE TO MONITOR
[2018-05-30 21:04] VITALS: BP 137/81
[2018-05-31 00:11] VITALS: BP 128/76
[2018-05-31 04:36] VITALS: BP 134/74
[2018-05-31 05:49] LABS: ALBUMIN 3.3 g/dL (3.4-5.0); ANION GAP 13.4 mmol/L (8-16); BILIRUBIN - TOTAL 0.18 mg/dL (0.2-1.3); CALCIUM 8.4 mg/dL (8.5-10.1); CARBON DIOXIDE 27.5 mmol/L (21.0-32.0); CREATININE - SERUM 1.1 mg/dL (0.6-1.3); POTASSIUM - SERUM 3.9 mmol/L (3.5-5.1); PROTEIN - SERUM 6.3 g/dL (6.4-8.2)
--- NOTE | 2018-05-31 07:15 | NUR ---
MORNING ASSESSMENT COMPLETE. SEE ASSESSMENT FLOWSHEET FOR FURTHER DETAILS. PT LYING IN BED AAO X4 TO PERSON, PLACE, TIME, AND SITUATION. DENIES NEEDS AT THIS TIME. CL IN REACH.
[2018-05-31 07:58] VITALS: BP 146/89
[2018-05-31 12:22] VITALS: BP 137/72
--- NOTE | 2018-05-31 12:57 | MORECARE ---
CASE MANAGEMENT DISCHARGE SUMMARY PATIENT: BLOSSOM ALMANZA UNIT: [id number] ADM DATE: 05/29/18 AGE: 68 : 49 SEX: F ROOM/BED: D.2204 AUTHOR: RJ,DOC PHYSICIAN: REFERRING PHYSICIAN: DAXA HDEZ MD DATE OF SERVICE: 05/31/18 Discharge Plan Patient Name: BLOSSOM ALMANZA Facility: [facility]:[place] : 1950 Planned Disposition: Home or Self Care Anticipated Discharge Date: Discharge Date: Expected LOS: Initial Reviewer: [email or web address] Initial Review Date: 05/30/2018 Generated: 05/31/18 1:57 pm Comments DCP- Discharge Planning Updated by [email or web address]: Radha Sung on 05/31/18 11:[address] Patient Name: BLOSSOM ALMANZA Admission Status: ER Accout number: [id number] Admission Date: 05-29-2018 : 1950 Admission Diagnosis: Attending: DAXA HDEZ Current LOS: 2 Anticipated DC Date: Planned Disposition: Home or Self Care Primary Insurance: [facility] [employer] Discharge Planning Comments: CM met with patient to complete initial dc planning assessment. CM educated patient on the CM role and verbal consent given by patient to complete assessment. Patient lives at home with her . At discharge patient plans to return home and feels this is a safe discharge. Vance () will be her cdl flatbed truck driver home. CM discussed availability of home health, rehab services, and medical equipment. Patient denied known discharge needs at this time. CM will continue to follow and will assist as needed with dc plans/needs. Diamond Die Driller: Radha Sung DCPIA - Discharge Planning Initial Assessment Updated by [email or web address]: Radha Sung on 05/31/18 12:51 pm * Is the patient Alert and Oriented? Yes * How many steps to enter\exit or inside your home? * PCP AB CARVER * Pharmacy [facility] * Preadmission Environment Home with Family * ADLs Independent * List name and contact numbers for known caregivers / representatives who currently or will assist patient after discharge: VANCE ALMANZA [phone] * Verbal permission to speak to the caregivers and representatives has been obtained from the patient. N/A * Community resources currently utilized None * Additional services required to return to the preadmission environment? No * Can the patient safely return to the preadmission environment? Yes * Has this patient been hospitalized within the prior 30 days at any hospital? No Patient Name: BLOSSOM ALMANZA Page [phone] at 1257 All edits/amendments must be made on the electronic document DICTATION DATE: 05/31/18 125 MONITORING SPECIALIST: ANA PAULA 05/31/181255 RPT#: [id number] DC DATE: STATUS: ADM IN [facility] [address] [place] [address] END OF REPORT
== END 2018-05-31 16:49 | disposition home or self-care (01) | DRG 439 ==
LOC: D.ER 20:04 → D.MS 23:28
PROVIDERS: Family Medicine; ADMIT Internal Medicine Nephrology; ATTEND Internal Medicine Nephrology
DX: K85.90 Acute pancreatitis without necrosis or infection, unspecified (principal); N17.9 Acute kidney failure, unspecified; K86.1 Other chronic pancreatitis; I10 Essential (primary) hypertension; I25.10 Atherosclerotic heart disease of native coronary artery without angina pectoris; K21.9 Gastro-esophageal reflux disease without esophagitis; E03.9 Hypothyroidism, unspecified; J45.909 Unspecified asthma, uncomplicated

== ENCOUNTER 2018-06-03 09:56 | Outpatient (CLI) | payer MEDICARE ==
[~2018-06-03] VITALS: Ht 165.1 cm; Wt 75.0 kg
[~2018-06-03 09:56] MED LIST changes: +CARAFATE1 G PO; +NORVASC5 MG PO; +PROVENTIL/2.5 MG/3 M INH; +VITAMIN D250000 UNIT PO
[2018-06-03 10:22] LABS: BASOPHILS 0.5 % (0-2); HEMATOCRIT 43.2 % (36.0-48.0); HEMOGLOBIN 14.7 g/dL (12-16); IMMATURE GRANULOCYTES 0.2 % (0-5); LYMPHOCYTES 39.8 % (15-50); MCH 30.1 pg (26.0-34.0); MCV 88.3 fL (80.0-100.0); MONOCYTES 9.3 % (2-11); NEUTROPHILS 47.2 % (40-80); PLATELET COUNT 262 10x3/uL (130-400); RBC 4.89 10x6/uL (4.00-5.40); WBC 6.7 10x3/uL (4.8-10.8)
[2018-06-03 10:31] LABS: INR 1.02 (0.85-1.17); PROTIME 12.9 SECONDS (11.6-15.0)
[2018-06-03 10:32] LABS: ANION GAP 12.2 mmol/L (8-16); APTT 27.1 SECONDS (22.8-39.4); CALCIUM 9.1 mg/dL (8.5-10.1); CARBON DIOXIDE 29.4 mmol/L (21.0-32.0); CREATININE - SERUM 1.4 mg/dL (0.6-1.3); POTASSIUM - SERUM 4.6 mmol/L (3.5-5.1)
[2018-06-03 11:45] VITALS: BP 165/75; Ht 165.1 cm; Wt 75.0 kg
--- NOTE | 2018-06-03 14:00 | NUR ---
REC'D FROM SPECIALS. FAMILY AT BEDSIDE. DRESSING CDI. FL TRAY BROUGHT TO PT.
--- NOTE | 2018-06-03 14:30 | NUR ---
TOLERATED FL TRAY. DRESSING CDI. NO C/O VOICED.
--- NOTE | 2018-06-03 15:00 | NUR ---
REGULO WITH IR ROUNDED ON PATIENT. ASKED IF PATIENT HAD TO STAY UNTIL 1800. RELATED SHE WOULD TALK TO DR ANGEL AND CONFIRM WHEN SHE COULD LEAVE.
--- NOTE | 2018-06-03 15:15 | NUR ---
REGULO WITH IR RELATED PT. COULD LEAVE IN 2 HRS FROM ARRIVAL TIME TO OUTPATIENT PER DR ANGEL.
--- NOTE | 2018-06-03 16:00 | NUR ---
IV DC'D WITH CATHETER INTACT,
--- NOTE | 2018-06-03 16:05 | NUR ---
WRITTEN AND VERBAL DC INST. GIVEN TO PT. VERBALIZED UNDERSTANDING.
--- NOTE | 2018-06-03 16:20 | NUR ---
DC'D HOME WITH FAMILY VIA PRIVATE VEHICLE. TAKEN TO VEHICLE VIA WC. STABLE AT TIME OF DC.
== END 2018-06-03 16:20 | disposition home or self-care (01) ==
LOC: D.SP 09:56 → D.CT 13:00 → D.SP 13:00
PROVIDERS: ATTEND Specialist
DX: N28.1 Cyst of kidney, acquired (principal); Z01.812 Encounter for preprocedural laboratory examination

== ENCOUNTER 2018-06-17 11:40 | Day surgery (SDC) | payer MEDICARE ==
[2018-06-16 10:18] LABS: HEMATOCRIT 42.8 % (36.0-48.0); HEMOGLOBIN 14.5 g/dL (12-16); MCH 30.3 pg (26.0-34.0); MCHC 33.9 g/dL (31.0-37.0); MCV 89.4 fL (80.0-100.0); MEAN PLATELET VOLUME 9.7 fL (7.4-10.4); RBC 4.79 10x6/uL (4.00-5.40); RDW 13.3 % (11.5-14.5); WBC 6.3 10x3/uL (4.8-10.8)
[~2018-06-17] VITALS: Ht 165.1 cm; Wt 73.5 kg
[~2018-06-17 11:40] MED LIST changes: +ALBUTEROL0.63 MG/3 INH; +ZANTAC300 MG PO
[2018-06-17 12:34] VITALS: BP 138/73; Ht 165.1 cm; Wt 73.5 kg
--- NOTE | 2018-06-17 16:15 | NUR ---
PT WISHES TO CANCEL SURGERY FOR TODAY DUE TO TIME DELAY WITH SURGERY. IV D/C WITH CANNULA INTACT
[2018-06-18] MEDS ORDERED: MIRALAX17 GM PO (15:43)
== END 2018-06-17 16:20 | disposition home or self-care (01) ==
LOC: D.OPS 11:40
PROVIDERS: Anesthesiology; ATTEND Urology
DX: N39.3 Stress incontinence (female) (male) (principal); Z53.29 Procedure and treatment not carried out because of patient's decision for other reasons; N81.10 Cystocele, unspecified; Z01.812 Encounter for preprocedural laboratory examination

== ENCOUNTER 2018-06-18 12:11 | Emergency (ER) | payer MEDICARE ==
[~2018-06-18] VITALS: Ht 165.1 cm; Wt 73.6 kg
[2018-06-18 12:18] VITALS: Ht 165.1 cm; Wt 73.6 kg
[2018-06-18 12:36] LABS: BASOPHILS 0.9 % (0-2); EOSINOPHILS 2.8 % (0-7); HEMOGLOBIN 15.2 g/dL (12-16); IMMATURE GRANULOCYTES 0.1 % (0-5); LYMPHOCYTES 37.7 % (15-50); MCH 30.2 pg (26.0-34.0); MCHC 34.5 g/dL (31.0-37.0); MCV 87.5 fL (80.0-100.0); MEAN PLATELET VOLUME 9.7 fL (7.4-10.4); MONOCYTES 7.3 % (2-11); NEUTROPHILS 51.2 % (40-80); PLATELET COUNT 285 10x3/uL (130-400); RBC 5.03 10x6/uL (4.00-5.40); RDW 13.3 % (11.5-14.5); WBC 6.7 10x3/uL (4.8-10.8)
[2018-06-18 12:48] LABS: ALBUMIN 3.9 g/dL (3.4-5.0); ALKALINE PHOSPHATASE 50 U/L (46-116); ALT (SGPT) 17 U/L (10-68); BILIRUBIN - TOTAL 0.44 mg/dL (0.2-1.3); CALC OSMOLALITY 283 mosm/kg (275-300); CARBON DIOXIDE 25.9 mmol/L (21.0-32.0); CHLORIDE - SERUM 103 mmol/L (98-107); CREATININE - SERUM 1.3 mg/dL (0.6-1.3); POTASSIUM - SERUM 4.1 mmol/L (3.5-5.1); PROTEIN - SERUM 7.4 g/dL (6.4-8.2); SODIUM 139 mmol/L (136-145); UREA NITROGEN 17 mg/dL (7-18); eGFR NON AFRICAN AMERICAN 43 mL/min (90-120)
[2018-06-18 12:51] LABS: GLUCOSE 175 mg/dL (74-106)
[2018-06-18 12:53] LABS: AMYLASE - SERUM 37 U/L (25-115); LIPASE 216 U/L (73-393); TROPONIN-I < 0.017 ng/mL (0.000-0.060)
[2018-06-18 13:18] LABS: APPEARANCE CLEAR (CLEAR); BILIRUBIN NEGATIVE (NEGATIVE); COLOR STRAW (YELLOW); GLUCOSE NEGATIVE (NEGATIVE); KETONE NEGATIVE (NEGATIVE); NITRITE NEGATIVE (NEGATIVE); PROTEIN NEGATIVE (NEGATIVE); SPECIFIC GRAVITY 1.005 (1.005-1.020); UROBILINOGEN NORMAL (NORMAL)
[2018-06-18] MEDS ORDERED: MIRALAX17 GM PO (15:43)
[2018-06-18 16:09] VITALS: BP 154/81
== END 2018-06-18 16:10 | disposition home or self-care (01) ==
LOC: D.ER 12:11
PROVIDERS: Emergency Medicine
DX: R10.12 Left upper quadrant pain (principal); R11.0 Nausea

== ENCOUNTER 2018-07-22 08:40 | Day surgery (SDC) | payer MEDICARE ==
[2018-07-21 15:59] LABS: HEMATOCRIT 42.7 % (36.0-48.0); HEMOGLOBIN 14.7 g/dL (12-16); MCH 30.5 pg (26.0-34.0); MCHC 34.4 g/dL (31.0-37.0); MCV 88.6 fL (80.0-100.0); MEAN PLATELET VOLUME 10.1 fL (7.4-10.4); RBC 4.82 10x6/uL (4.00-5.40); RDW 13.1 % (11.5-14.5); WBC 8.5 10x3/uL (4.8-10.8)
[~2018-07-22] VITALS: Ht 165.1 cm; Wt 74.8 kg
[~2018-07-22 08:40] MED LIST changes: +MIRALAX17 GM PO
[2018-07-22 09:10] VITALS: BP 154/78; Ht 165.1 cm; Wt 74.8 kg
--- NOTE | 2018-07-23 11:05 | OP ---
PATIENT NAME: BLOSSOM ALMANZA MEDICAL RECORD: [id number] :48 LOCATION:D.[facility] ADMISSION DATE: SURGEON: MAKI CEJA MD DATE OF OPERATION: 07/22/2018 SURGEON: Maki Ceja MD ANESTHESIA: General anesthesia by Leonard Evans CRNA DIAGNOSES: 1. Female stress urinary incontinence. 2. 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 PROCEDURE: 1. Cystoscopy. 2. Pubovaginal sling with mesh - [employer] Obtryx II. 3. Cystocele repair with cadaveric dermis. Coloplast John 8 x 11 cm sheet. FINDINGS: On cystoscopy, single ureteral orifices bilaterally with no bladder tumors and no bladder injury. ESTIMATED BLOOD LOSS: 240 mL. CLINICAL HISTORY: This is a 68-year-old female, A0, who is a retired registered nurse. She is post-hysterectomy. She has a complaint of urinary incontinence. The leakage has become so extreme that she has developed a rash on the vulva from a constant wetness. She has tried overactive bladder medication which did not work. When I examined her, she had stress urinary incontinence with urethral hypermobility. Positive Bill test. She also had a cystocele [place]-Walker grade II. I discussed repair of the stress incontinence using a pubovaginal sling. If the stress incontinence only is addressed and the cystocele was not addressed then there is a risk that she may have trouble emptying her bladder afterwards as the persistence cystocele will lead to kinking of the urethra and difficulty emptying. At that time I discussed this with her, she had chosen to have the repair done with mesh. This was on 05/12/2018. Subsequently, the FDA removed all pelvic prolapse repair mesh materials off the market. Therefore, I called the patient yesterday and explained the situation to her. The only product that I can use as graft material is cadaveric human dermis. She is agreeable to have this done. She has multiple medication ALLERGIES INCLUDING PENICILLIN, CODEINE, DILAUDID, NORCO, NSAIDS, PHENERGAN, SINGULAIR, VERSED, SOLU-MEDROL. She was given Levaquin IV cartoon artist to the OR. She is able to tolerate Demerol and she will be getting Demerol for postop pain management. DESCRIPTION OF PROCEDURE: The patient was given induction of general anesthesia. She was then placed into dorsal lithotomy position and shaved, prepped, and draped. A weighted speculum was used to hold down the posterior vaginal wall. A Robert catheter was inserted into the bladder and put to bag drainage. The labia majora were retracted laterally using stay sutures of #2 nylon. These stay sutures were anchored to the medial thighs. The anterior vaginal wall was infiltrated using Pitressin solution. Twenty units of Pitressin was dissolved in 100 mL of injectable normal saline. This was infiltrated in the anterior vaginal wall for hydrodissection. A transverse incision was made at the level of the bladder neck. Dissection was then OPERATIVE REPORT [id number] BLOSSOM ALMANZA performed using Metzenbaum scissors to go through the pubocervical fascia, and on each side laterally, I cleared the obturator membrane as well as the retropubic space. Going posteriorly, the presacral space was cleared including the ischial spine and the attached sacrospinous ligament. She has some consistent venous oozing throughout this dissection, but there was no visible arterial bleeding. We then proceeded to put our suspensory sutures for the cystocele repair. This will be a 4 point suspension. The 2 posterior sutures go through the sacrospinous ligaments, 1 cm medial to the ischial spine. The purpose of going 1 cm medial to the ischial spine is to avoid hitting the internal pudendal arteries and pudendal nerves. The sutures were placed with the catheter device. The anterior set of sutures goes up to Justice's ligament on each side. All sutures were tested for strength of their attachments. The distance from ischial spine to ischial spine was measured at 11 cm using a flexible tape. The distance from the apex of the vaginal dissection to the bladder neck level was 6 cm. An 8 x 12 cm sheet of cadaveric dermis was cut to 8 x 11 size by trimming off 1 cm from 1 edge. An arch was made in the posterior portion so that the apex of the arch would be 6 cm from the opposite edge. The arch will also serve to facilitate defecation as it will prevent compression of the rectum by the graft. Once the graft was rehydrated in normal saline, each of the 4 suspensory sutures were placed to their respective corners of the graft. The sutures were all tied down and this resulted in nice reduction of the cystocele. We then landmarked for the pubovaginal sling. I will be using a [employer] Obtryx graft. This is a mesh graft. The FDA did not stop the use of mesh graft for a pubovaginal sling. Also, mesh graft used for sacrospinous suspension are also still permitted by the FDA. The landmark is just inferior to the insertion of the adductor longus muscle on the descending pubic ramus. The helical trocars were placed on each side deep to the descending pubic ramus and coming out through the anterior apex of the operating membrane. The graft arms of the Obtryx graft were attached to the tips of the helical trocars and the helical trocars were withdrawn resulting in transobturator passage of the graft. The tab on the midpoint of the graft was placed under the mid urethra. Once the graft was in correct position, the tab was cut off and removed entirely. The Robert catheter was then taken out. Cystoscopy was performed using a 17-[place] cystoscope. No bladder injury was noted. The bladder was filled through the cystoscope. Now when we removed the scope and applied manual pressure suprapubically we could see leakage of urine per the urethra. Gradually graft tension was increased until there was no further leakage with manual pressure being applied suprapubically. At this point, we cut the sutures holding the clear plastic sheath material on each graft arm. With a Reina clamp preventing increase in graft tension by being placed between the graft and the urethra, the clear plastic sheath material on each side was removed entirely. The graft arms were cut where they exited the inguinal skin. The 2 stab incisions in the groins were closed using simple interrupted 4-0 Vicryl. The wound was irrigated out with normal saline. The transverse vaginal incision was closed using running 4-0 Monocryl. Vaginal packing consisting of Kerlix infiltrated with estrogen cream was placed into the vagina. This will be removed prior to her going home today. The Robert catheter was placed to just temporarily drain the bladder and then removed. If she cannot void today, she will be going home with a Robert catheter. Otherwise, I will see her in followup next week. TRANSINT:[id number] Voice Confirmation ID: [id number] DOCUMENT ID: [id number] OPERATIVE REPORT [id number] BLOSSOM ALMANZA, MAKI Gifford MD at 8962 CC: [id number] DICTATION DATE: 07/22/18 1624 LABORER SALVAGE: 07/22/182111 [facility] 07/22/18 [facility] [address] [place] [id number]
== END 2018-07-22 18:20 | disposition home or self-care (01) ==
LOC: D.OPS 08:40 → D.PAN 09:30 → D.OPS 10:45
PROVIDERS: Anesthesiology; ATTEND Urology
DX: N39.3 Stress incontinence (female) (male) (principal); N81.11 Cystocele, midline; Z01.812 Encounter for preprocedural laboratory examination

== ENCOUNTER 2018-09-03 15:20 | Emergency (ER) | payer MEDICARE ==
[2018-09-03 15:22] VITALS: BMI 26.6
[2018-09-03 15:49] LABS: BASOPHILS 0.6 % (0-2); EOSINOPHILS 2.5 % (0-7); HEMATOCRIT 43.4 % (36.0-48.0); HEMOGLOBIN 15.1 g/dL (12-16); IMMATURE GRANULOCYTES 0.2 % (0-5); LYMPHOCYTES 49.6 % (15-50); MCH 30.4 pg (26.0-34.0); MCHC 34.8 g/dL (31.0-37.0); MCV 87.5 fL (80.0-100.0); MEAN PLATELET VOLUME 9.6 fL (7.4-10.4); MONOCYTES 11.6 % (2-11); NEUTROPHILS 35.5 % (40-80); PLATELET COUNT 303 10x3/uL (130-400); RBC 4.96 10x6/uL (4.00-5.40); RDW 12.4 % (11.5-14.5); WBC 6.5 10x3/uL (4.8-10.8)
[2018-09-03 15:59] LABS: ALBUMIN 4.2 g/dL (3.4-5.0); ALKALINE PHOSPHATASE 50 U/L (46-116); ALT (SGPT) 23 U/L (10-68); BILIRUBIN - TOTAL 0.48 mg/dL (0.2-1.3); CALC OSMOLALITY 281 mosm/kg (275-300); CALCIUM 9.7 mg/dL (8.5-10.1); CHLORIDE - SERUM 104 mmol/L (98-107); CREATININE - SERUM 1.4 mg/dL (0.6-1.3); GLUCOSE 117 mg/dL (74-106); POTASSIUM - SERUM 4.1 mmol/L (3.5-5.1); PROTEIN - SERUM 7.9 g/dL (6.4-8.2); SODIUM 141 mmol/L (136-145); UREA NITROGEN 13 mg/dL (7-18); eGFR NON AFRICAN AMERICAN 39 mL/min (90-120)
[2018-09-03 16:02] LABS: AMYLASE - SERUM 40 U/L (25-115); LIPASE 264 U/L (73-393); TROPONIN-I < 0.017 ng/mL (0.000-0.060)
[2018-09-03 18:38] LABS: APPEARANCE CLEAR (CLEAR); BILIRUBIN NEGATIVE (NEGATIVE); COLOR YELLOW (YELLOW); GLUCOSE NEGATIVE (NEGATIVE); KETONE NEGATIVE (NEGATIVE); NITRITE NEGATIVE (NEGATIVE); PROTEIN NEGATIVE (NEGATIVE); UROBILINOGEN NORMAL (NORMAL)
[2018-09-03 18:40] LABS: BACTERIA MODERATE /hpf (NONE SEEN); EPITHELIAL CELLS OCC /hpf (0-5); RED CELLS - URINE OCC /hpf (0-5); WHITE CELLS - URINE 0-5 /hpf (0-5)
[2018-09-03 19:04] VITALS: BP 125/74
== END 2018-09-03 19:05 | disposition home or self-care (01) ==
LOC: D.ER 15:20
PROVIDERS: Emergency Medicine
DX: R10.12 Left upper quadrant pain (principal); Z86.79 Personal history of other diseases of the circulatory system; K86.1 Other chronic pancreatitis

== ENCOUNTER → 2018-09-15 07:58 | Outpatient (CLI) | payer MEDICARE ==
[2018-09-03 15:22] VITALS: BMI 26.6
--- NOTE | 2018-09-17 13:25 | ST ---
PATIENT:BLOSSOM ALMANZA MEDICAL RECORD: [id number] SEX: F LOCATION:[facility] ORDER #: ADMISSION DATE: 09/15/18 AGE OF PATIENT: 68 REFERRING PHYSICIAN: INTERPRETING PHYSICIAN: MILY BEASLEY MD DATE OF SERVICE: 09/15/2018 PROCEDURE: Nuclear stress test. INDICATION: Angina and coronary artery disease, shortness of breath, hypertension. DESCRIPTION OF PROCEDURE: She was exercised on standard Lexiscan protocol with 33 mCi of sestamibi injected at peak stress, 11 mCi were used previously for rest images. FINDINGS: Gated SPECT reveals preserved ejection fraction at 72% with good wall motion and thickening and brightening throughout all segments. SPECT imaging: Cardiolite was used as myocardial fusion agent. There is homogeneous uptake throughout all segments at rest and stress with no evidence of inducible ischemia or previous infarction. OVERALL IMPRESSION: 1. This is a normal nuclear stress test with no evidence of inducible ischemia or previous infarction. 2. Gated SPECT reveals a preserved ejection fraction at 72%. In this patient with ongoing symptomatology, the current scan does not suggest the presence of hemodynamically significant coronary artery disease. Evaluate noncardiac etiology of chest pain. TRANSINT:[id number] Voice Confirmation ID: [id number] DOCUMENT ID: [id number] IMLY BEASLEY MD at 1325 CC: AB CARVER [id number] DICTATION DATE: 09/15/18 175 PORK CUTLET MAKER: 09/16/18 0306 DEP CLI 09/15/18 [place] [id number] [place] [id number]
== END | disposition home or self-care (01) ==
LOC: D.HCCARDIO 07:58
PROVIDERS: ATTEND Internal Medicine Interventional Cardiology
DX: I25.10 Atherosclerotic heart disease of native coronary artery without angina pectoris (principal)

== ENCOUNTER 2018-11-15 16:24 | Emergency (ER) | payer MEDICARE ==
[~2018-11-15] VITALS: Ht 165.1 cm; Wt 72.7 kg
[2018-11-15 16:55] VITALS: Ht 165.1 cm; Wt 72.7 kg
[2018-11-15 17:14] LABS: BASOPHILS 0.6 % (0-2); HEMATOCRIT 43.4 % (36.0-48.0); HEMOGLOBIN 14.9 g/dL (12-16); IMMATURE GRANULOCYTES 0.1 % (0-5); LYMPHOCYTES 39.5 % (15-50); MCH 30.1 pg (26.0-34.0); MCHC 34.3 g/dL (31.0-37.0); MCV 87.7 fL (80.0-100.0); MEAN PLATELET VOLUME 9.7 fL (7.4-10.4); MONOCYTES 11.7 % (2-11); NEUTROPHILS 46.1 % (40-80); PLATELET COUNT 271 10x3/uL (130-400); RBC 4.95 10x6/uL (4.00-5.40); RDW 12.8 % (11.5-14.5); WBC 8.9 10x3/uL (4.8-10.8)
[2018-11-15 17:31] LABS: ANION GAP 10.5 mmol/L (8-16); BILIRUBIN - TOTAL 0.35 mg/dL (0.2-1.3); CALCIUM 9.5 mg/dL (8.5-10.1); CARBON DIOXIDE 31.2 mmol/L (21.0-32.0); CREATININE - SERUM 1.3 mg/dL (0.6-1.3); POTASSIUM - SERUM 3.7 mmol/L (3.5-5.1); PROTEIN - SERUM 8.1 g/dL (6.4-8.2)
[2018-11-15 19:51] LABS: APPEARANCE CLEAR (CLEAR); BILIRUBIN NEGATIVE (NEGATIVE); COLOR YELLOW (YELLOW); GLUCOSE NEGATIVE (NEGATIVE); KETONE NEGATIVE (NEGATIVE); NITRITE NEGATIVE (NEGATIVE); PROTEIN NEGATIVE (NEGATIVE); SPECIFIC GRAVITY 1.015 (1.005-1.020); UROBILINOGEN NORMAL (NORMAL)
[2018-11-15 21:50] LABS: BASOPHILS 0.5 % (0-2); HEMATOCRIT 41.7 % (36.0-48.0); HEMOGLOBIN 14.2 g/dL (12-16); IMMATURE GRANULOCYTES 0.1 % (0-5); LYMPHOCYTES 45.4 % (15-50); MCH 29.6 pg (26.0-34.0); MCHC 34.1 g/dL (31.0-37.0); MCV 86.9 fL (80.0-100.0); MEAN PLATELET VOLUME 9.8 fL (7.4-10.4); MONOCYTES 9.2 % (2-11); NEUTROPHILS 42.8 % (40-80); PLATELET COUNT 268 10x3/uL (130-400); RDW 12.7 % (11.5-14.5); WBC 8.8 10x3/uL (4.8-10.8)
[2018-11-15 22:19] LABS: ALKALINE PHOSPHATASE 53 U/L (46-116); BILIRUBIN - TOTAL 0.43 mg/dL (0.2-1.3); CALC OSMOLALITY 283 mosm/kg (275-300); CALCIUM 9.6 mg/dL (8.5-10.1); CARBON DIOXIDE 28.5 mmol/L (21.0-32.0); CHLORIDE - SERUM 103 mmol/L (98-107); CREATININE - SERUM 1.3 mg/dL (0.6-1.3); GLUCOSE 100 mg/dL (74-106); LIPASE 169 U/L (73-393); PROTEIN - SERUM 8.2 g/dL (6.4-8.2); SODIUM 141 mmol/L (136-145); UREA NITROGEN 21 mg/dL (7-18); eGFR NON AFRICAN AMERICAN 43 mL/min (90-120)
[2018-11-15 22:21] LABS: ALT (SGPT) 22 U/L (10-68); POTASSIUM - SERUM 4.4 mmol/L (3.5-5.1); TROPONIN-I < 0.017 ng/mL (0.000-0.060)
[2018-11-15 22:38] VITALS: BP 157/92
[2018-11-16 00:35] LABS: UDS - AMPHET NEGATIVE QUAL (NEGATIVE); UDS - BARB NEGATIVE QUAL (NEGATIVE); UDS - BENZO NEGATIVE QUAL (NEGATIVE); UDS - COCAINE NEGATIVE QUAL (NEGATIVE); UDS - OPIATE NEGATIVE QUAL (NEGATIVE); UDS - PCP NEGATIVE QUAL (NEGATIVE); UDS - THC NEGATIVE QUAL (NEGATIVE)
== END 2018-11-15 22:38 | disposition home or self-care (01) ==
LOC: D.ER 16:24
PROVIDERS: Emergency Medicine; Family Medicine
DX: K85.90 Acute pancreatitis without necrosis or infection, unspecified (principal)

== ENCOUNTER → 2018-12-06 11:05 | Outpatient (CLI) | payer MEDICARE ==
[2018-11-15 16:55] VITALS: BMI 26.6
== END | disposition home or self-care (01) ==
LOC: D.NM 11:05
PROVIDERS: ATTEND Emergency Medicine
DX: K86.1 Other chronic pancreatitis (principal)

== ENCOUNTER → 2019-01-13 09:00 | Outpatient (CLI) | payer MEDICARE ==
[2018-11-15 16:55] VITALS: BMI 26.6
[~2019-01-13 09:00] MED LIST changes: +ALBUTEROL2.5 MG/3 M INH; +TENORMIN50 MG PO; +ZOFRAN ODT4 MG/UDTAB PO
== END | disposition home or self-care (01) ==
LOC: D.MAMMO 09:00
PROVIDERS: ATTEND Emergency Medicine
DX: Z12.31 Encounter for screening mammogram for malignant neoplasm of breast (principal)

== ENCOUNTER 2019-02-01 04:09 | Observation (INO) | payer MEDICARE ==
[~2019-02-01] VITALS: Ht 165.1 cm; Wt 71.7 kg
--- NOTE | ~2019-02-01 | HEMODYNAMI ---
PATIENT:BLOSSOM ALMANZA MEDICAL RECORD: [id number] : [birth year] LOCATION:[facility] D.2102 ADMISSION DATE: 02/01/19 Generatedon:02/01/201914:45 Patient name: BLOSSOM ALMANZA Patient #: [id number] SSN: [id number] : 1950 Date of study: 02/01/2019 Page: Of Hemodynamic Procedure Report Patient Data Patient Demographics Procedure consent was obtained First Name: BLOSSOM Gender: Female Last Name: CAMI : 1950 [facility] Initial: STACI Age: 68 year(s) Patient #: [id number] Race: SSN: [id number] Additional ID: [id number] Contact details Address: [address] [place] [address] State: [place] City: [place] Zip code: [address] Past Medical History Allergies Allergen Reaction Date Comments Reported Codeine 01/22/2016 Other allergy 01/22/2016 [place] NSAIDs 01/22/2016 Penicillins 01/22/2016 Other allergy 01/22/2016 Singulair, Phenergan, Solu-Medrol Other allergy 09/02/2017 PCN, NSAIDS, CODEINE, NORCO, DILAUDID, SOLUMEDROL, SINGULAR, PHENERGAN Admission Admission Data Admission Date: 02/01/2019 Admission Time: 4:38 Arrival Date: 02/01/2019 Arrival Time: 0:00 Admit Source: Other Insurance Payor: Medicare Room #: D.2102 [facility] #: [id number] Height (in.): 64.96 BSA: 1.78 (m2) Height (cm.): 165 BMI: 26.08 (kg/m2) Weight (lbs.): 156.53 Weight (kg.): 71 Lab Results Lab Result Date: 02/01/2019 Lab Result Time: 0:00 Biochemistry Name Units Result Min Max BUN mg/dl 16 --(---*)-- 7 18 Creatinine mg/dl 1.3 --(---*)-- 0.6 1.3 eGFR ml/min 43 *-(----)-- 90 120 NONAFRICAN CBC Name Units Result Min Max Hemoglobin g/dl 13.2 -*(----)-- 13.5 17.5 Procedure Procedure Types Cath Procedure Diagnostic Procedure [facility] w/Coronaries Procedure Description Procedure Date Procedure Date: 02/01/2019 Procedure Start Time: 14:28 Procedure End Time: 14:39 Procedure Staff Name Function Ana Dominguez RT Monitor Jeffy Antoine MD Performing Physician Allyn Leroy RT Scrub Samia lAmanza RN Nurse Procedure Data Cath Procedure Fluoroscopy Diagnostic fluoroscopy Total fluoroscopy Time: 1.1 time: 1.1 min min Diagnostic fluoroscopy Total fluoroscopy dose: 426 dose: 426 mGy mGy Contrast Material Contrast Material Type Amount (ml) Isovue 300 59 Entry Location Entry Primary Successful Side Size Upsize Upsize Entry Closure Succes sful Closure Location (Fr) 1 (Fr) 2 (Fr) Remarks Device Remarks Femoral Right 5 Fr Exoseal artery Estimated blood loss: 5 ml Diagnostic catheters Device Type Used For End Catheter Placement MULTIPACK JL 4.0 5Fr Left Coronary catheter Angiography MULTIPACK 3DRC 5Fr Right Coronary catheter Angiography MULTIPACK Pigtail 5 Fr LV Angiography catheter Procedure Complications No complications Procedure Medications Medication Administration Route Dosage 0.9% NaCl I.V. 100 ml/hr Oxygen etCO2 Nasal cannula 2 l/min Lidocaine 2% added to field 20 Heparin Flush Bag added to field 2 bags (1000units/500ml NS) Versed I.V. 2 mg Fentanyl I.V. 50 mcg Fentanyl I.V. 50 mcg Hemodynamics Rest BSA: 1.78 (m2) HGB: 13.2 (g/dl) O2 Consumption: Estimated: 162.67 (ml/min) O2 Co nsumption indexed: Estimated:91.39 (ml/min/m) Heart Rate: 67 (bpm) Pressure Samples Time Site Value (mmHg) Purpose Heart Use Rate(bpm) 14:35 LV 152/-24,-12 Snapshot 32 Snapshots Pre Cath Intra NCS Post Cath Vital Signs Time Heart Resp SPO2 etCO2 NIBP (mmHg) Rhythm Pain Sedation Rate (ipm) (%) (mmHg) Status Level (bpm) 14:03:53 67 15 99 33.9 178/92(145) NSR 0 (11) 10(A) , No pain 14:08:13 67 15 98 19.6 156/91(133) NSR 0 (11) 10(A) , No pain 14:12:27 67 17 97 31.7 146/81(137) NSR 0 (11) 10(A) , No pain 14:16:39 67 10 96 33.2 149/82(130) NSR 0 (11) 10(A) , No pain 14:20:51 68 14 96 23.4 146/84(126) NSR 0 (11) 10(A) , No pain 14:25:01 73 14 96 33.9 151/87(132) NSR 0 (11) 10(A) , No pain 14:29:12 72 11 96 29.4 155/86(128) NSR 0 (11) 10(A) , No pain 14:34:12 81 13 97 33.2 Measuring NSR 0 (11) 10(A) , No pain 14:34:22 80 13 98 33.2 169/93(135) NSR 0 (11) 10(A) , No pain 14:39:09 80 12 96 17.3 163/93(128) NSR 0 (11) 10(A) , No pain Medications Time Medication Route Dose Verified Delivered Reason Notes Eff ectiveness by by 14:02:28 0.9% NaCl I.V. 100 Jeffy Beala used for ml/hr Elina Cami procedure MD HATCH 14:02:35 Oxygen etCO2 2 Jeffy Beala used for Nasal l/min Elina Cami procedure cannula MD HATCH 14:02:40 Lidocaine 2% added 20ml Jeffy Bardales for local to vial Elina Elina anesthetic field MD AMEZQUITA 14:02:44 Heparin Flush added 2 Jeffy Bardales used for Bag to bags Elina Elina procedure (1000units/500ml field MD AMEZQUITA NS) 14:13:27 Versed I.V. 2 mg Jeffy Samia for Elina Cami sedation MD HATCH 14:13:35 Fentanyl I.V. 50 Jeffy Beala for mcg Elina Cami sedation MD HATCH 14:26:43 Fentanyl I.V. 50 Jeffy Hicksyla for mcg Elina Cami sedation MD HATCHmedical laboratory assistant Log Time Note 12:41:48 Arrival Date: 02/01/2019 12:00:00 AM 12:42:06 Admit Source: Other 12:42:08 Insurance Payor : Medicare 12:42:16 Patient Height : 64.96 inches 12:42:20 Patient Weight : 156.53 lbs 12:44:36 Lab Result : eGFR NONAFRICAN 43 ml/min 12:44:36 Lab Result : Hemoglobin 13.2 g/dl 12:44:36 Lab Result : BUN 16 mg/dl 12:44:36 Lab Result : Creatinine 1.3 mg/dl 12:48:05 3a) 45-59 Moderately reduced kidney function. 12:52:23 Informed consent obtained and on chart 12:53:27 ACC Patient presents with Unstable Angina CCS Anginal Class 3--Marked limitation of physical activity, angina occurs with ordinary activity.. 12:53:36 Procedure Status Urgent Heart Cath (IP). 12:53:50 Plan of Care:Hemodynamics will remain stable., Cardiac rhythm will remain stable., Comfort level will be maintained., Respiratory function will remain adequate., Patient/ family verbilizes understanding of procedure., Procedure tolerated without complication., Recovers from procedure without complications.. 13:48:41 Allyn Leroy RT(R) sent for patient. Start room use. 13:48:44 Time tracking: Regular hours (M-F 7:00 - 5:00) 13:54:45 Risk of Mortality: 1.2 13:54:49 Risk of blood transfusion: 4.3 13:54:54 Risk of ANANYA: 12.2 13:55:02 Patient received from Med II to CCL 2 Alert and oriented. Tansferred to table in Supine position. 13:55:04 Warm blankets applied, and alejandra hugger turned on for patient comfort. 13:55:05 Correct patient and procedure confirmed by team. 13:55:06 ECG and BP/O2 sat monitors applied to patient. 14:02:28 0.9% NaCl 100 ml/hr I.V. was administered by Samia Almanza RN; used for procedure; Verbal order read back and verified. 14:02:35 Oxygen 2 l/min etCO2 Nasal cannula was administered by Samia Almanza RN; used for procedure; Verbal order read back and verified. 14:02:40 Lidocaine 2% 20ml vial added to field was administered by Jeffy Antoine MD; for local anesthetic; Verbal order read back and verified. 14:02:44 Heparin Flush Bag (1000units/500ml NS) 2 bags added to field was administered by Jeffy Antoine MD; used for procedure; Verbal order read back and verified. 14:02:48 Vital chart was started 14:07:12 Baseline sample Acquired. 14:07:30 Per pt Versed makes her "feel crazy" but allergy isn't anaphylactic and did okay with moderate sedation during last heart cath. MD informed and no new orders given. All VSS, will continue to monitor. 14:07:51 Rhythm: sinus rhythm 14:07:53 Full Disclosure recording started 14:07:58 H&P Date Dictated: 02/01/2019 New H&P dictated by physician.. 14:08:00 Pre-procedure instructions explained to patient. 14:08:01 Pre-op teaching completed and patient verbalized understanding. 14:08:02 Family in waiting room. 14:08:03 Patient NPO since Midnight. 14:08:12 Is the patient allergic to Iodine/contrast media? No. 14:08:14 Was the patient premedicated? No 14:08:37 Is patient on blood thinner?No 14:08:40 Patient diabetic? No. 14:08:43 Previous problem with sedation/anesthesia? No ? 14:08:45 Snore? Yes 14:08:46 Sleep apnea? No 14:08:47 Deviated septum? No 14:08:48 Sticks out tongue? Yes 14:08:48 Opens mouth fully? Yes 14:08:55 Airway obstruction? Yes copd 14:08:57 Dentures? No ? 14:09:00 Pre procedure: right dorsailis pedis pulse 2+ Normal; easily identifiable; not easily obliterated 14:09:02 Pre procedure: left dorsailis pedis pulse 2+ Normal; easily identifiable; not easily obliterated 14:09:04 Patient pain scale 0/10 ?. 14:09:11 IV patent on arrival in right wrist with 0.9% NaCl at [facility]. 14:09:20 Lab results completed and on chart. 14:09:24 Right groin area was prepped with chlora-prep and draped in sterile fashion 14:09:26 Alarms reviewed by RJayla N. 14:09:27 Sharps counted by scrub and verified by RJaylaNJayla 14:09:40 Physician arrived 14::41 Final Timeout: patient, procedure, and site verified with staff and physician. All members of the team are in agreement. 14:: --------ALL STOP TIME OUT------ 14:09:44 Right groin site verified by team. 14:09:48 Fire Safety Assessment: A--An alcohol-based skin anteseptic being used preoperatively., C--Open oxygen or nitrous oxide is being used., D--An ESU, laser, or fiber-optic light is being used. 14:09:55 Physical assessment completed. ASA score P 2 - A patient with mild systemic disease as per Jeffy Antoine MD. 14:10:02 Maximum allowable contrast dose (3.7 X eGFR X 0.75)119 ml. 14:10:07 Sedation plan: IV Moderate Sedation Medication:Versed, Fentanyl 14:10:15 Use device set Femoral Dx 14:10:16 Bag Decanter (2002S) opened to sterile field. 14:10:16 ACIST Syringe (54887) opened to sterile field. 14:10:17 Medline Cath Pack ([id number]) opened to sterile field. 14:10:19 DIAGNOSTIC Multipack 5Fr catheter set ([id number]) opened to sterile field. 14:10:19 ACIST Manifold (24160) opened to sterile field. 14:10:19 ACIST Hand Control (20507) opened to sterile field. 14:10:20 Tegaderm 4 x 4 (1626W) opened to sterile field. 14:10:21 SHEATH 5FR [place] (WUV201) opened to sterile field. 14:10:22 EMERALD Guide Wire (142-973) opened to sterile field. 14:13:27 Versed 2 mg I.V. was administered by Samia Almanza RN; for sedation; Verbal order read back and verified. 14:13:35 Fentanyl 50 mcg I.V. was administered by Samia Almanza RN; for sedation; Verbal order read back and verified. 14:26:43 Fentanyl 50 mcg I.V. was administered by Samia Almanza RN; for sedation; Verbal order read back and verified. 14:28:39 Procedure started. 14:28:45 Local anesthetic to right femoral artery with Lidocaine 2% by Ana NICK(R).INITIAL ACCESS ONLY 14:28:54 A 5 Fr sheath was inserted into the Right Femoral artery 14:30:20 A MULTIPACK JL 4.0 5Fr catheter was advanced over the wire and used for Left Coronary Angiography. 14:31:43 LCA angiography performed. 14:31:46 Injector settings: Ml/sec: 3, Volume: 6, 14:32:20 Catheter removed. 14:32:25 A MULTIPACK 3DRC 5Fr catheter was advanced over the wire and used for Right Coronary Angiography. 14:33:20 RCA angiography performed. 14:33:22 Injector settings: Ml/sec: 3, Volume: 6, 14:33:59 Catheter removed. 14:34:33 A MULTIPACK Pigtail 5 Fr catheter was advanced over the wire and used for LV Angiography. 14:35:57 LV hemodynamics recorded. 14:35:59 LV gram done using WILSON 14:36:01 Injector settings: Ml/sec: 5, Volume: 15, 14:36:15 EF : 55 % 14:36:33 Catheter removed. 14:36:37 EXOSEAL 5Fr (EX500) opened to sterile field. 14:37:01 Sheath removed intact; hemostasis achieved with Exoseal to the Right Femoral artery. 14:37:03 Procedure ended.(Physican Out) 14:37:43 Fluoroscopy time 01.10 minutes. 14:37:47 Fluoroscopy dose: 426 mGy 14:37:47 Flurop Dose total: 426 14:37:55 Dose Area Product 28491 mGy/cm. 14:38:00 Contrast amount:Isovue 300 59ml. 14:38:02 Maximum allowable dose exceeded? No. 14:38:03 Sharps counted by scrub and verified by R.N. 14:38:05 Insertion/operative site no bleeding no hematoma. 14:38:07 Post-op/insertion site Right Femoral artery dressed using a 4 x 4 and Tegaderm. 14:38:09 Post Procedure Pulses reassessed and unchanged 14:38:21 Post procedure rhythm: sinus rhythm 14:38:25 Estimated blood loss: 5 ml 14:38:27 Patient needs reinforcement of post procedure teaching. 14:38:27 Post procedure instruction explained to patient.Patient verbalizes understanding. 14:38:45 Procedure and supply charges have been captured, reviewed, submitted and are correct. 14:38:49 Procedure Complication : No complications 14:38:56 Vital chart was stopped 14:38:58 [facility] Findings: mild to moderate CAD (<70%) 14:38:59 Operative report dictated upon procedure completion. 14:39:00 See physician's report for complete and final results. 14:39:08 Report given to [facility]. 14:39:11 Patient transfered to [facility] with Stretcher. 14:39:13 Full Disclosure recording stopped 14:39:13 Procedure ended. 14:40:25 End room use (Document Last) Device Usage Item Name Manufacture Quantity Catalog Hospital Part Current Minimal L ot# / Number Charge Number Stock Stock Serial# Code ACIST Acist 1 63561 [id number] 046545 007622 20 Syringe Medical (15116) Systems Inc Bag Microtek 1 2001S 696349 54963 489506 5 Decanter Medical Inc. () Medline Medline 1 [id number] 947267 47789 403553 5 Cath Pack ([id number]) ACIST Hand Acist 1 47014 586337 120381 007168 5 Control Medical (62313) Systems Inc ACIST Acist 1 98591 574227 630333 078256 5 Manifold Medical (39347) Systems Inc DIAGNOSTIC Cardinal 1 [id number] 178407 20385 560373 30 Multipack Health 5Fr catheter set ([id number]) Tegaderm 4 3M 1 1626W 527917 296042 476389 5 x 4 (1626W) SHEATH 5FR Terumo 1 GCJ335 762345 088219 519904 5 [place] (FQQ517) EMERALD Cardinal 1 502-455 915424 121742 756771 5 Guide Wire Health (502-455) MULTIPACK Cardinal 1 940950 5 JL 4.0 5Fr Health catheter MULTIPACK Cardinal 1 769211 5 3DRC 5Fr Health catheter MULTIPACK Cardinal 1 394155 5 Pigtail 5 Health Fr catheter EXOSEAL 5Fr Cardinal 1 EX500 519450 328374 401064 10 (EX500) Health Signature Audit [place] Stage Time Signature Unsigned Intra-Procedure 02/01/2019 Ana Dominguez RT(R) 2:42:57 PM RT(R) 02/01/2019 2:43:44 PM Intra-Procedure 02/01/2019 Ana Dominguez 2:44:05 PM RT(R) Intra-Procedure 02/01/2019 Samia Almanza 2:44:30 PM RN Intra-Procedure 02/01/2019 Jeffy Thurman 2:45:13 PM Wilner AMEZQUITA Signatures Monitor : Ana Dominguez RT Signature : Date : Time : Performing Physician : Signature : Jeffy Antoine MD Date : Time : Nurse : Samia Almanza RN Signature : Date : Time : [facility] [address] [place] [address]
[~2019-02-01 04:09] MED LIST changes: -ALBUTEROL2.5 MG/3 M INH; -TENORMIN50 MG PO; -ZOFRAN ODT4 MG/UDTAB PO
[2019-02-01] MEDS ORDERED: TENORMIN50 MG PO (04:18)
[2019-02-01] MEDS ORDERED: PROTONIX40 MG PO (04:19)
[2019-02-01] MEDS ORDERED: ZOFRAN ODT4 MG/UDTAB PO (04:19)
[2019-02-01] MEDS ORDERED: ALBUTEROL2.5 MG/3 M INH (04:20)
[2019-02-01 04:49] VITALS: BP 137/75
[2019-02-01 04:51] LABS: BASOPHILS 0.4 % (0-2); EOSINOPHILS 2.5 % (0-7); HEMATOCRIT 39.4 % (36.0-48.0); HEMOGLOBIN 13.2 g/dL (12-16); IMMATURE GRANULOCYTES 0.1 % (0-5); LYMPHOCYTES 46.9 % (15-50); MCH 30.4 pg (26.0-34.0); MCHC 33.5 g/dL (31.0-37.0); MCV 90.8 fL (80.0-100.0); MEAN PLATELET VOLUME 9.8 fL (7.4-10.4); MONOCYTES 10.6 % (2-11); NEUTROPHILS 39.5 % (40-80); PLATELET COUNT 240 10x3/uL (130-400); RBC 4.34 10x6/uL (4.00-5.40); RDW 12.6 % (11.5-14.5); WBC 7.6 10x3/uL (4.8-10.8)
[2019-02-01 05:05] LABS: CALC OSMOLALITY 281 mosm/kg (275-300); CALCIUM 8.6 mg/dL (8.5-10.1); CARBON DIOXIDE 27.9 mmol/L (21.0-32.0); CHLORIDE - SERUM 103 mmol/L (98-107); CREATININE - SERUM 1.3 mg/dL (0.6-1.3); POTASSIUM - SERUM 3.6 mmol/L (3.5-5.1); SODIUM 139 mmol/L (136-145); UREA NITROGEN 16 mg/dL (7-18); eGFR NON AFRICAN AMERICAN 43 mL/min (90-120)
[2019-02-01 05:07] LABS: GLUCOSE 148 mg/dL (74-106)
[2019-02-01 05:13] LABS: APTT 26.6 SECONDS (22.8-39.4); INR 0.99 (0.85-1.17); PROTIME 12.6 SECONDS (11.6-15.0)
[2019-02-01 05:14] LABS: D-DIMER-QUANTITATIVE 0.32 ug/mLFEU (0.20-0.54)
[2019-02-01 05:21] LABS: ALBUMIN 3.5 g/dL (3.4-5.0); ALKALINE PHOSPHATASE 58 U/L (46-116); ALT (SGPT) 18 U/L (10-68); CKMB 0.5 U/L (0.0-3.6); CREATINE KINASE 41 UL (21-215); MAGNESIUM - SERUM 1.9 mg/dL (1.8-2.4); PROTEIN - SERUM 6.8 g/dL (6.4-8.2); TROPONIN-I < 0.017 ng/mL (0.000-0.060)
--- NOTE | 2019-02-01 06:06 | NUR ---
PT REPORT CALLED FROM MAMIE PICKARD IN ER. PT ARRIVED TO FLOOR ALERT AND ORIENTED X4. NO S/S OF DISTRESS. VITALS STABLE AT THIS TIME. TELEMETRY PLACEDE ON PT. PT DENIES ANY PAIN OR NEEDS AT THIS TIME. BED LOW CALL LIGHT WITHIN REACH. WILL CONTINUIE TO MONITOR.
[2019-02-01 06:33] VITALS: BP 169/84; BMI 26.3
[2019-02-01 07:44] VITALS: BP 157/77
--- NOTE | 2019-02-01 08:20 | NUR ---
REPORT RECEIVED. WILL CONTINUE WITH POC. PT CURRENTLY LYING SUPINE. CALL LIGHT W/I REACH. PT IS ASLEEP AT THIS TIME WITH EYES CLOSED. RR EVEN AND UNLABORED ON RA. R.HAND PIV IS SALINE LOCKED. NO S/S OF DISTRESS NOTED. PT DENIES ANY NEEDS. WILL CTM.
[2019-02-01 08:52] LABS: CHOL - HDL RATIO 3.1 ratio (2.3-4.1); LDL-HDL RATIO 1.8 ratio (1.5-3.5)
[2019-02-01 11:22] LABS: CKMB 0.6 U/L (0.0-3.6); CREATINE KINASE 48 UL (21-215)
[2019-02-01 11:24] LABS: TROPONIN-I < 0.017 ng/mL (0.000-0.060)
[2019-02-01 11:41] VITALS: BP 142/78
[2019-02-01 14:00] VITALS: Ht 165.1 cm; Wt 71.7 kg
--- NOTE | 2019-02-01 14:48 | NUR ---
I have reviewed this patient and I concur with the Shift Assessment completed by the Licensed Practical Nurse today this shift.
--- NOTE | 2019-02-01 14:58 | NUR ---
RECEIVED PT FROM VP [employer]ATE DEVELOPMENT. RIGHT FEMORAL CATH SITE IS C/D/I WITH NO S/S OF HEMATOMA PRESENT. PT IS AAO AND RR EVEN AND UNLABORED ON RA. NS INFUSING @200ML/HR VIA R.FOR PIV. PT WILL LAY SUPINE FOR 2 HOURS. WILL CTM.
--- NOTE | 2019-02-01 16:16 | NUR ---
UPON ADMIT, PATIENT REPORTS TO HAVING A FLU SHOT THIS YEAR.
--- NOTE | 2019-02-01 17:25 | NUR ---
PT DISCHARGED HOME VIA WHEELCHAIR WITH FAMILY. PIV REMOVED WITH CATHETER TIP FULLY INTACT. TELEMETRY REMOVED AND RETURNED. PT SIGNED PROPER DISCHARGE INSTRUCTIONS AND REMOVED ALL VALUABLES FROM THE ROOM.
--- NOTE | 2019-02-02 08:25 | MORECARE ---
CASE MANAGEMENT DISCHARGE SUMMARY PATIENT: BLOSSOM ALMANZA UNIT: [id number] ADM DATE: 02/01/19 AGE: 68 : [birth year] SEX: F ROOM/BED: D.210 AUTHOR: TERRY DE LA ROSA PHYSICIAN: REFERRING PHYSICIAN: DAXA HDEZ MD DATE OF SERVICE: 02/02/19 Discharge Plan Patient Name: BLOSSOM ALMANZA [facility] [facility] 1950 Planned Disposition: Home Anticipated Discharge Date: 02/01/19 Discharge Date: 02/01/2019 Expected LOS: 1 Initial Reviewer: [email or web address] Initial Review Date: 02/02/2019 Generated: 02/02/19 9:25 am Patient Name: BLOSSOM ALMANZA Page 28569 at 0825 All edits/amendments must be made on the electronic document DICTATION DATE: 02/02/19824 DOMESTIC VIOLENCE COUNSELOR: ANA PAULA 02/02/19824 RPT#: [id number] DC DATE:02/01/19 STATUS: DIS IN [facility] [address] [place] [address] END OF REPORT
--- NOTE | 2019-02-02 13:38 | OP ---
PATIENT NAME: BLOSSOM ALMANZA MEDICAL RECORD: [id number] :[birth year] LOCATION:D.M2 D.2102 ADMISSION DATE:02/01/19 SURGEON: CRUZ OLIVARES MD DATE OF OPERATION: 02/01/2019 PROCEDURE: Left heart catheterization, selective coronary angiography, right femoral artery approach. CATHETERS: A 5-Turkmen sheath, 5/4 left and right Antonio, 5/4 pig. The procedure was well tolerated. The patient returned to the lao, sheath removed. ExoSeal device placed. FINDINGS: Left ventriculography in 30-degree WILSON view: Normal wall motion and normal systolic function. CORONARY ANATOMY: LEFT MAIN: Left main is free of disease. LAD: Area of previous stenting is widely patent. No evidence of restenosis. No progression of gila river disease. CIRCUMFLEX: Area of previous stenting is widely patent. No progression of gila river disease. RIGHT CORONARY ARTERY: Codominant system, free of disease. IMPRESSION: Widely patent stents. No progression of gila river disease. LV function remains normal. TRANSINT:[id number] Voice Confirmation ID: [id number] DOCUMENT ID: [id number] CRUZ OLIVARES MD at 1338 CC: [id number] DICTATION DATE: 02/01/19 1444 PERSONAL LINES ACCOUNT EXECUTIVE: 02/02/19 0013 DIS IN 02/01/19 [id number] [place] [address]
--- NOTE | 2019-02-02 13:38 | CN ---
PATIENT NAME:BLOSSOM ALMANZA MEDICAL RECORD: [id number] : [birth year] LOCATION:D. D.2102 ADMIT DATE: 02/01/19 ACCOUNT: [id number] CONSULTING PHYSICIAN: CRUZ OLIVARES MD REFERRING PHYSICIAN: DAXA HDEZ MD DATE OF CONSULTATION: 02/01/2019 HISTORY OF PRESENT ILLNESS: A 68-year-old female with a known history of coronary artery disease, status post intervention to LAD approximately 16 months ago. She has a history of chronic pancreatitis, multiple GI problems. Has been having chest pressure and tightness. Chest pain relieved with nitroglycerin last night. Had recurrence of rest. We are asked to see her concerning her cardiovascular status. She does have a history of hypertension as well as dyslipidemia as well. PAST MEDICAL HISTORY: Includes: 1. History of hypertension. 2. Hyperlipidemia. 3. Chronic pancreatitis. 4. Gastroesophageal reflux disease. 5. Hypothyroidism, on replacement. MEDICATIONS: Include Synthroid 88 mcg every day, Zantac 300 b.i.d., MiraLax, Zofran 4 mg p.o. p.r.n., tramadol 50 every 6 hours p.r.n., Cymbalta 60 every day, aspirin 81 every day, Avapro 300 every day, fenofibrate 134 every day, atenolol 50 every day. SOCIAL HISTORY: Nonsmoker, nondrinker. Is able to take care of all ADLs and does attempt to exercise. ALLERGIES: INCLUDE NSAIDS, PENICILLIN, CODEINE, HYDROCODONE, AND PREDNISONE. REVIEW OF SYSTEMS: The patient reports easy bruising but reports no swollen glands. The patient reports no fever, no night sweats, no significant weight gain, no significant weight loss. No significant exercise tolerance. The patient reports no dry eyes, no irritation, no vision change. Patient reports no difficulty hearing and no ear pain. Patient reports no frequent nose bleeds or nose and sinus problems. Patient reports on arm pain on exertion. No shortness of breath while lying down. No history of heart murmur. Patient reports no cough, no wheezing or coughing up blood. Patient reports no abdominal pain, no vomiting. Normal appetite. No diarrhea and not vomiting blood. No nausea and no constipation. Patient reports no incontinence. No difficulty urinating. No hematuria. No increased frequency. Patient reports no muscle aches. No weakness, no arthralgias, no back pain. No swelling of the extremities. Patient reports no abnormal mole, no jaundice, no rashes. Reports no loss of consciousness. No weakness and no numbness. No seizures, dizziness, or headaches. The patient reports no depression, no sleep disturbance, feeling safe in a relationship and no alcohol abuse. Patient reports on fatigue. Reports no runny nose or sinus pressure. No itching, no hives, and no frequent sneezing. PHYSICAL EXAMINATION: GENERAL: Pleasant female, in no acute distress, appears stated age. VITAL SIGNS: Blood pressure 157/77, pulse 58 and regular. HEENT: Normocephalic, atraumatic. CONSULT REPORT [id number] BLOSSOM ALMANZA NECK: No JVD or bruit. HEART: Regular. LUNGS: Good air excursion. ABDOMEN: Soft, nontender. EXTREMITIES: Pulses 2+. No edema. DIAGNOSTIC DATA: ECG shows nonspecific ST-T changes. IMPRESSION: Acute coronary syndrome. Known history of coronary artery disease. Continued symptomology with negative nuclear scan. Plan for angiography. Intervention based on above. TRANSINT:[id number] Voice Confirmation ID: [id number] DOCUMENT ID: [id number] CRUZ OLIVARES MD at 1338 CC: [id number] DICTATION DATE: 02/01/19837 DISTRIBUTION DISPATCHER: 02/01/19 1131 DIS IN 02/01/19 [id number] [place] [address]
== END 2019-02-01 17:26 | disposition home or self-care (01) ==
LOC: D.ER 04:09 → D.M2 04:38 → OBSVTIME 04:38 → D.M2 17:26
PROVIDERS: Family Medicine; Internal Medicine Interventional Cardiology; ADMIT Internal Medicine Nephrology; ATTEND Internal Medicine Nephrology
DX: I24.9 Acute ischemic heart disease, unspecified (principal); I10 Essential (primary) hypertension; E78.5 Hyperlipidemia, unspecified; I25.10 Atherosclerotic heart disease of native coronary artery without angina pectoris; J44.9 Chronic obstructive pulmonary disease, unspecified; K21.9 Gastro-esophageal reflux disease without esophagitis; E03.9 Hypothyroidism, unspecified; K86.1 Other chronic pancreatitis

== ENCOUNTER 2019-02-10 09:00 | Outpatient (CLI) | payer MEDICARE ==
[2019-02-01 14:00] VITALS: BMI 26.2
[~2019-02-10 09:00] MED LIST changes: +ALBUTEROL2.5 MG/3 M INH; +TENORMIN50 MG PO; +ZOFRAN ODT4 MG/UDTAB PO
== END 2019-02-10 10:00 | disposition home or self-care (01) ==
LOC: D.MAMMO 09:00
PROVIDERS: ATTEND Emergency Medicine
DX: R92.8 Other abnormal and inconclusive findings on diagnostic imaging of breast (principal)

== ENCOUNTER → 2019-02-15 13:19 | Outpatient (CLI) | payer MEDICARE ==
[2019-02-01 14:00] VITALS: BMI 26.2
== END | disposition home or self-care (01) ==
LOC: D.US 13:19
PROVIDERS: ATTEND Emergency Medicine
DX: R92.8 Other abnormal and inconclusive findings on diagnostic imaging of breast (principal)

== ENCOUNTER 2019-06-29 03:56 | Observation (INO) | payer MEDICARE ==
[~2019-06-29] VITALS: Ht 165.1 cm; Wt 72.7 kg
--- NOTE | ~2019-06-29 | HEMODYNAMI ---
PATIENT:BLOSSOM ALMANZA MEDICAL RECORD: [id number] : 48 [facility] [id number] ADMISSION DATE: 06/29/19 Generatedon:06/29/201915:20 Patient name: BLOSSOM ALMANZA Patient #: [id number] SSN: [id number] : 1950 Date of study: 06/29/2019 Page: Of Hemodynamic Procedure Report Patient Data Patient Demographics First Name: BLOSSOM Gender: Female Last Name: CAMI : 1950 [facility] Initial: STACI Age: 69 year(s) Patient #: [id number] Race: SSN: [id number] Additional ID: [id number] Contact details Address: [address] [place] [address] State: [place] City: [place] Zip code: [address] Past Medical History Allergies Allergen Reaction Date Comments Reported Codeine 01/22/2016 Other allergy 01/22/2016 [place] NSAIDs 01/22/2016 Penicillins 01/22/2016 Other allergy 01/22/2016 Singulair, Phenergan, Solu-Medrol Other allergy 09/02/2017 PCN, NSAIDS, CODEINE, NORCO, DILAUDID, SOLUMEDROL, SINGULAR, PHENERGAN Other allergy 06/29/2019 see chart Admission Admission Data Admission Date: 06/29/2019 Admission Time: 6:46 Room #: D.2122 Lab Results Lab Result Date: 06/29/2019 Lab Result Time: 0:00 Biochemistry Name Units Result Min Max BUN mg/dl 22 --(----)-* 7 18 Creatinine mg/dl 1.3 --(---*)-- 0.6 1.3 CBC Name Units Result Min Max Hemoglobin g/dl 13.3 -*(----)-- 13.5 17.5 Procedure Procedure Types Cath Procedure Diagnostic Procedure LHC LHC w/Coronaries Sedation Charges Moderate Sedation up to 30 minutes Procedure Description Procedure Date Procedure Date: 06/29/2019 Procedure Start Time: 14:56 Procedure End Time: 15:19 Procedure Staff Name Function Jeffy Antoine MD Performing Physician Allyn Leroy RT Monitor Kavita Norwood RN Nurse Ana Dominguez RT Scrub Katie Garcia RT Monitor Procedure Data Cath Procedure Fluoroscopy Diagnostic fluoroscopy Total fluoroscopy Time: 5.1 time: 5.1 min min Diagnostic fluoroscopy Total fluoroscopy dose: 339 dose: 339 mGy mGy Contrast Material Contrast Material Type Amount (ml) Isovue 370 55 Entry Location Entry Primary Successful Side Size Upsize Upsize Entry Closure Salcedo ccessful Closure Location (Fr) 1 (Fr) 2 (Fr) Remarks Device Remarks Radial Right 6 Fr Mechanical artery Short Compression Femoral Right 5 Fr Exoseal artery Estimated blood loss: 5 ml Diagnostic catheters Device Type Used For End Catheter Placement DIAGNOSTIC [place] 110cm 5 Procedure Fr catheter ([id number]) MULTIPACK JL 4.0 5Fr Procedure catheter MULTIPACK 3DRC 5Fr Procedure catheter MULTIPACK Pigtail 5 Fr Procedure catheter Procedure Complications No complications Procedure Medications Medication Administration Route Dosage Oxygen etCO2 Nasal cannula 2 l/min Lidocaine 2% added to field 20 Heparin Flush Bag added to field 2 bags (1000units/500ml NS) 0.9% NaCl I.V. 100 ml/hr Versed I.V. 1 mg Fentanyl I.V. 50 mcg Versed I.V. 1 mg Fentanyl I.V. 50 mcg Versed I.V. 1 mg Fentanyl I.V. 50 mcg Radial Cocktail I.A. 1 syringe (Verapamil 2mg/Nitro 400mcg/Heparin 1500units) Versed I.V. 1 mg Fentanyl I.V. 50 mcg Versed I.V. 1 mg Versed I.V. 1 mg Hemodynamics Rest HGB: 13.3 (g/dl) Heart Rate: 63 (bpm) Pressure Samples Time Site Value (mmHg) Purpose Heart Use Rate(bpm) 15:10 LV 93/2,5 Snapshot 70 Gradients Valve Time Site Site Mean SEP/DFP Peak To Heart Use 1 2 (mmHg) (sec/min) Peak Rate (mmHg) (bpm) Aortic 15:10 LV AO 69 Snapshots Pre Cath Intra NCS Post Cath Vital Signs Time Heart Resp SPO2 etCO2 NIBP (mmHg) Rhythm Pain Sedation Rate (ipm) (%) (mmHg) Status Level (bpm) 14:07:49 63 12 100 35.2 168/78(124) NSR 0 (11) 10(A) , No pain 14:12:09 63 15 100 34.5 156/87(141) NSR 0 (11) 10(A) , No pain 14:16:23 63 18 100 20.2 159/90(136) NSR 0 (11) 10(A) , No pain 14:20:43 62 11 97 21.7 135/75(108) NSR 0 (11) 10(A) , No pain 14:24:53 63 15 96 30.7 133/79(101) NSR 0 (11) 10(A) , No pain 14:29:05 63 14 96 36 125/71(106) NSR 0 (11) 10(A) , No pain 14:33:11 65 14 95 40.4 131/79(108) NSR 0 (11) 10(A) , No pain 14:37:19 66 15 96 20.2 148/80(122) NSR 0 (11) 10(A) , No pain 14:41:33 63 14 95 38.9 141/80(108) NSR 0 (11) 10(A) , No pain 14:45:45 64 12 97 40.4 141/80(126) NSR 0 (11) 10(A) , No pain 14:49:59 63 14 94 23.9 138/73(105) NSR 0 (11) 10(A) , No pain 14:54:13 64 15 94 41.2 132/73(100) NSR 0 (11) 9(A) , No pain 14:58:23 65 12 96 15.7 141/75(122) NSR 0 (11) 9(A) , No pain 15:02:43 62 15 93 26.2 98/56(74) NSR 0 (11) 9(A) , No pain 15:06:40 67 14 93 13.5 113/72(104) NSR 0 (11) 9(A) , No pain 15:10:42 67 15 94 41.9 130/77(109) NSR 0 (11) 10(A) , No pain 15:14:52 69 8 94 32.2 129/74(116) NSR 0 (11) 10(A) , No pain 15:19:02 69 9 95 36.7 148/73(126) NSR 0 (11) 10(A) , No pain Medications Time Medication Route Dose Verified Delivered Reason Notes Effectiveness by by 14:06:46 Oxygen etCO2 2 l/min Jeffy Cooleyie used for Nasal St Wilner Norwood RN procedure cannula 14:06:52 Lidocaine 2% added 20ml Jeffy Jeffy for local to vial [facility] anesthetic field MD AMEZQUITA 14:06:58 Heparin Flush added 2 bags Jeffy Bardales used for Bag to [facility] procedure (1000units/500ml field MD AMEZQUITA NS) 14:07:07 0.9% NaCl I.V. 100 Jeffy Walls Per ml/hr [facility] Wilner Norwood RN physician 14:46:36 Versed I.V. 1 mg Jeffy Walls for sedation [facility] Wil[facility] Norwood RN, MD 14:46:41 Fentanyl I.V. 50 mcg Jeffy Walls for sedation [facility] Wil[facility] Norwood RN, MD 14:51:12 Versed I.V. 1 mg Jeffy Walls for sedation [facility] Wilner Norwood RN, MD 14:51:16 Fentanyl I.V. 50 mcg Jeffy Walls for sedation [facility] Wilner Norwood RN, MD 14:55:47 Versed I.V. 1 mg Jeffy Walls for sedation [facility] Wilner Norwood RN, MD 14:55:53 Fentanyl I.V. 50 mcg Jeffy Walls for sedation [facility] Wilner Norwood RN, MD 14:59:42 Radial Cocktail I.A. 1 Jeffy Bardales for (Verapamil syringe [facility] vasodilation 2mg/Nitro MD AMEZQUITA 400mcg/Heparin 1500units) 15:00:37 Versed I.V. 1 mg Jeffy Bardales for sedation [facility] Wilner Antoine MD, MD 15:00:46 Fentanyl I.V. 50 mcg Jeffy Bardales for sedation [facility] Wilner Antoine MD, MD 15:06:12 Versed I.V. 1 mg Jeffy Bardales for sedation [facility] Wilner Antoine MD, MD 15:08:33 Versed I.V. 1 mg Jeffy Bardales for sedation [facility] Wilner Antoine MD, MD Procedure Log Time Note 14:01:25 Lab Result : BUN 22 mg/dl 14:01:25 Lab Result : Hemoglobin 13.3 g/dl 14:01:25 Lab Result : Creatinine 1.3 mg/dl 14:01:37 Procedure Status Urgent Heart Cath (IP). 14:01:39 Kavita Norwood RN sent for patient. Start room use. 14:01:40 Time tracking: Regular hours (M-F 7:00 - 5:00) 14:01:45 Plan of Care:Hemodynamics will remain stable., Cardiac rhythm will remain stable., Comfort level will be maintained., Respiratory function will remain adequate., Patient/ family verbilizes understanding of procedure., Procedure tolerated without complication., Recovers from procedure without complications.. 14:01:57 Patient received from Med II to CCL 2 Alert and oriented. Tansferred to table in Supine position. 14:01:59 Warm blankets applied, and alejandra hugger turned on for patient comfort. 14:02:00 Correct patient and procedure confirmed by team. 14:02:02 ECG and BP/O2 sat monitors applied to patient. 14:02:07 H&P Date Dictated: 06/29/2019 Within 30 days and on chart., H&P Addendum completed by physician on day of procedure. (MUST COMPLETE FOR ALL OUTPATIENTS). 14:02:09 Pre-procedure instructions explained to patient. 14:02:11 Family unavailable. 14:02:13 Patient NPO since Midnight. 14:02:24 Is patient on blood thinner?Yes 14:02:27 ACC The patient was administered the following blood thiners within the last 24 hours: ACCPlavix 14:02:29 Patient diabetic? No. 14:02:33 Snore? No 14:02:35 Sleep apnea? No 14:02:39 Dentures? No ? 14:02:52 IV patent on arrival in left forearm with 0.9% NaCl at [facility]. 14:02:56 Lab results completed and on chart. 14:03:22 Right Radial & Right Groin area was prepped with chlora-prep and draped in sterile fashion 14:03:24 Alarms reviewed by R. N. 14:03:24 Sharps counted by scrub and verified by R.N. 14:03:25 Physician paged 14:06:32 Pt states that she is not allergic to versed, pt has recieved versed for several procedures without adverse reactions. 14:06:36 Vital chart was started 14:06:46 Oxygen 2 l/min etCO2 Nasal cannula was administered by Buffie Norwood RN; used for procedure; Verbal order read back and verified. 14:06:52 Lidocaine 2% 20ml vial added to field was administered by Jeffy Antoine MD; for local anesthetic; Verbal order read back and verified. 14:06:58 Heparin Flush Bag (1000units/500ml NS) 2 bags added to field was administered by Jeffy Antoine MD; used for procedure; Verbal order read back and verified. 14:07:07 0.9% NaCl 100 ml/hr I.V. was administered by Kavita Norwood RN; Per physician; Verbal order read back and verified. 14:14:28 Full Disclosure recording started 14:14:30 Baseline sample Acquired. 14:14:35 Rhythm: sinus rhythm 14:15:09 Use device set Radial Dx or PCI 14:15:17 ACIST Syringe (35467) opened to sterile field. 14:15:17 Medline Cath Pack ([id number]) opened to sterile field. 14:15:18 Bag Decanter (2002S) opened to sterile field. 14:15:19 ACIST Hand Control (25385) opened to sterile field. 14:15:19 ACIST Manifold (11102) opened to sterile field. 14:15:22 MBrace Wrist Support ([id number]) opened to sterile field. 14:15:24 EMERALD Guide Wire (336-535) opened to sterile field. 14:15:25 SHEATH 6FR RAIN (0105334) opened to sterile field. 14:15:43 Patient allergic to Other allergysee chart 14:15:48 Is the patient allergic to Iodine/contrast media? No. 14:15:50 Was the patient premedicated? N/A 14:15:56 Deviated septum? No 14:15:57 Opens mouth fully? Yes 14:15:58 Sticks out tongue? Yes 14:16:04 Modified Asa's test Ulnar < 7 seconds 14:16:07 Patient pain scale 0/10 ?. 14:16:17 Stress Test: no; N/A ? 14:45:07 Airway obstruction? Yes asthma 14:45:34 --------ALL STOP TIME OUT------ 14:45:34 Final Timeout: patient, procedure, and site verified with staff and physician. All members of the team are in agreement. 14:45:37 Right Radial & Right Groin site verified by team. 14:45:40 Fire Safety Assessment: A--An alcohol-based skin anteseptic being used preoperatively., C--Open oxygen or nitrous oxide is being used., D--An ESU, laser, or fiber-optic light is being used. 14:45:54 Physical assessment completed. ASA score P 2 - A patient with mild systemic disease as per Jfefy Antoine MD. 14:45:59 3b) 30-44 Moderately reduced kidney function. 14:46:03 Maximum allowable contrast dose (3.7 X eGFR X 0.75)119 ml. 14:46:08 Sedation plan: IV Moderate Sedation Medication:Versed, Fentanyl 14:46:36 Versed 1 mg I.V. was administered by Kavita Norwood RN; for sedation; Verbal order read back and verified. 14:46:41 Fentanyl 50 mcg I.V. was administered by Kavita Norwood RN; for sedation; Verbal order read back and verified. 14:51:12 Versed 1 mg I.V. was administered by Kavita Norwood RN; for sedation; Verbal order read back and verified. 14:51:16 Fentanyl 50 mcg I.V. was administered by Kavita Norwood RN; for sedation; Verbal order read back and verified. 14:55:06 Zero performed for pressure channel P1 14:55:23 Procedure started. 14:55:47 Versed 1 mg I.V. was administered by Kavita Norwood RN; for sedation; Verbal order read back and verified. 14:55:53 Fentanyl 50 mcg I.V. was administered by Kavita Norwood RN; for sedation; Verbal order read back and verified. 14:56:20 Local anesthetic to right radial artery with Lidocaine 2% by Jeffy Antoine MD.INITIAL ACCESS ONLY 14:58:36 A 6 Fr Short sheath was inserted into the Right Radial artery 14:59:06 A DIAGNOSTIC [place] 110cm 5 Fr catheter ([id number]) was advanced over the wire and used for Procedure. 14:59:42 Radial Cocktail (Verapamil 2mg/Nitro 400mcg/Heparin 1500units) 1 syringe I.A. was administered by Jeffy Antoine MD; for vasodilation; Verbal order read back and verified. 15:00:37 Versed 1 mg I.V. was administered by Jeffy Antoine MD; for sedation; Verbal order read back and verified. 15:00:46 Fentanyl 50 mcg I.V. was administered by Jeffy Antoine MD; for sedation; Verbal order read back and verified. 15:02:01 GLIDE WIRE Super Stiff Angled 260cm ([id number]) opened to sterile field. 15:02:28 GLIDEWIRE SUPERSTIFF 260 wire advanced. 15:04:11 UNABLE TO ADVANCE CATHETER USING J WIRE, GLIDEWIRE. 15:04:52 PROCEDDING TO GROIN. 15:05:11 Local anesthetic to right femoral artery with Lidocaine 2% by Jeffy Antoine MD.ADDITIONAL ACCESS 15:05:52 Use device set Femoral Dx 15:05:58 DIAGNOSTIC Multipack 5Fr catheter set ([id number]) opened to sterile field. 15:06:08 SHEATH 5FR Coolidge (SCS827) opened to sterile field. 15:06:12 Versed 1 mg I.V. was administered by Jeffy Antoine MD; for sedation; Verbal order read back and verified. 15:06:15 A 5 Fr sheath was inserted into the Right Femoral artery 15:06:26 A MULTIPACK JL 4.0 5Fr catheter was advanced over the wire and used for Procedure. 15:06:31 LCA angiography performed. 15:07:03 Injector settings: Ml/sec: 3, Volume: 6, 15:07:05 Catheter removed. 15:07:12 A MULTIPACK 3DRC 5Fr catheter was advanced over the wire and used for Procedure. 15:07:56 RCA angiography performed. 15:08:02 Injector settings: Ml/sec: 3, Volume: 6, 15:08:33 Versed 1 mg I.V. was administered by Jeffy Antoine MD; for sedation; Verbal order read back and verified. 15:08:33 ACCDominant side:Co-Dominant 15:08:35 Catheter removed. 15:08:42 A MULTIPACK Pigtail 5 Fr catheter was advanced over the wire and used for Procedure. 15:10:12 LV hemodynamics recorded. 15:10:14 LV gram done using WILSON 15:10:20 EF : 55 % 15:10:48 Catheter removed. 15:11:13 EXOSEAL 5Fr (EX500) opened to sterile field. 15:11:29 Sheath removed intact; hemostasis achieved with Exoseal to the Right Femoral artery. 15:11:44 Sheath removed intact; hemostasis achieved with Mechanical Compression to the Right Radial artery. 15:12:37 Procedure ended.(Physican Out) 15:13:02 Fluoroscopy time 05.10 minutes. 15:13:06 Fluoroscopy dose: 339 mGy 15:13:06 Flurop Dose total: 339 15:13:13 Dose Area Product 14884 mGy/cm. 15:13:18 Contrast amount:Isovue 370 55ml. 15:13:22 Maximum allowable dose exceeded? No. 15:13:23 Sharps counted by scrub and verified by R.N. 15:13:43 Post-op/insertion site Right Femoral artery dressed using a 4 x 4 and Tegaderm. 15:13:46 [place] band inflated with 12cc of air. 15:13:51 Post right femoral artery:stable, soft, clean and dry 15:14:06 Post Procedure Pulses reassessed and unchanged 15:14:09 Post procedure: right dorsailis pedis pulse 2+ Normal; easily identifiable; not easily obliterated. 15:14:12 Post-procedure physical assessment completed. ASA score P 2 - A patient with mild systemic disease as per Jeffy Antoine MD. 15:14:21 Post procedure rhythm: unchanged. 15:14:25 Estimated blood loss: 5 ml 15:15:34 Post procedure instruction explained to patient.Patient verbalizes understanding. 15:15:35 Patient needs reinforcement of post procedure teaching. 15:17:48 Procedure type changed to Cath procedure, Diagnostic procedure, LHC, C w/Coronaries, Sedation Charges, Moderate Sedation up to 30 minutes 15:19:06 Procedure and supply charges have been captured, reviewed, submitted and are correct. 15:19:10 Procedure Complication : No complications 15:19:12 Vital chart was stopped 15:19:14 [facility] Findings: mild to moderate CAD (<70%) 15:19:15 Operative report dictated upon procedure completion. 15:19:15 See physician's report for complete and final results. 15:19:21 Report given to [facility] II. 15:19:25 Patient transfered to Med II with Bed. 15:19:28 Procedure ended. 15:19:28 Full Disclosure recording stopped 15:19:35 End room use (Document Last) 15:19:45 End room use (Document Last) Device Usage Item Name Manufacture Quantity Catalog Hospital Part Current Minima l Lot# / Number Charge Number Stock Stock Serial# Code ACIST Acist 1 70772 372331 161600 593500 20 Syringe Medical (13549) Systems Inc Medline Medline 1 [id number] 696443 54387 576379 5 Cath Pack (DPVD12701) Bag Microtek 1 2001S 034022 40716 345740 5 Decanter Medical Inc. () ACIST Hand Acist 1 36072 086397 255585 785683 5 Control Medical (92754) Systems Inc ACIST Acist 1 87577 323705 649215 968641 5 Manifold Medical (28628) Systems Inc MBrace Advanced 1 140-0250-00 382307 72343 361609 5 Wrist Vascular Support Dynamics ([id number]) EMERALD Cardinal 1 502455 220617 073555 506874 5 Guide Wire Health (502455) SHEATH 6FR Cardinal 1 5961282 186432 4319634 651330 5 [facility] (0133583) DIAGNOSTIC Terumo 1 40-5013 373120 847571 087237 5 [place] 110cm 5 Fr catheter (657613) GLIDE WIRE Terumo 1 BN0284 950870 036577 469694 5 Super Stiff Angled 260cm (GJ6686) DIAGNOSTIC Cardinal 1 JY8057 907518 45461 959746 30 Multipack Health 5Fr catheter set (RW0716) SHEATH 5FR Terumo 1 JHL004 293105 550240 903285 5 Coolidge (QMM334) MULTIPACK Cardinal 1 633189 5 JL 4.0 5Fr Health catheter MULTIPACK Cardinal 1 521109 5 3DRC 5Fr Health catheter MULTIPACK Cardinal 1 416567 5 Pigtail 5 Health Fr catheter EXOSEAL 5Fr Cardinal 1 EX500 769370 918970 706012 10 (EX500) Health Signature Audit Arden Stage Time Signature Unsigned Intra-Procedure 06/29/2019 Katie Garcia 3:19:45 PM RT(R) Intra-Procedure 06/29/2019 Kavita Norwood RN 3:20:13 PM Intra-Procedure 06/29/2019 Jeffy Thurman 3:20:29 PM Wilner AMEZQUITA Signatures Performing Physician : Signature : Jeffy Antoine MD Date : Time : Monitor : Allyn Rad Signature : RT Date : Time : Nurse : Buffie Norwood RN Signature : Date : Time : Monitor : Ktaie Young Signature : RT Date : Time : [facility] [address] [place], [place] [address] [place] [address]
[~2019-06-29 03:56] MED LIST changes: +CENTRUM SILVER1 EAC3 PO
[2019-06-29 04:29] VITALS: BP 154/73
--- NOTE | 2019-06-29 04:29 | NUR ---
FIRST NITRO ADMINISTERED AT THIS TIME. PT RATES PAIN 5/10. WILL REASSESS IN 5 MIONUTES
[2019-06-29 04:31] LABS: BASOPHILS 0.3 % (0-2); EOSINOPHILS 3.4 % (0-7); HEMATOCRIT 41.1 % (36.0-48.0); HEMOGLOBIN 13.3 g/dL (12-16); IMMATURE GRANULOCYTES 0.2 % (0-5); LYMPHOCYTES 38.6 % (15-50); MCH 29.2 pg (26.0-34.0); MCHC 32.4 g/dL (31.0-37.0); MCV 90.1 fL (80.0-100.0); MEAN PLATELET VOLUME 9.7 fL (7.4-10.4); MONOCYTES 13.1 % (2-11); NEUTROPHILS 44.4 % (40-80); RBC 4.56 10x6/uL (4.00-5.40); RDW 12.8 % (11.5-14.5); WBC 6.4 10x3/uL (4.8-10.8)
[2019-06-29 04:38] VITALS: BP 114/77
[2019-06-29 04:38] LABS: PLATELET COUNT 302 10x3/uL (130-400)
--- NOTE | 2019-06-29 04:38 | NUR ---
SECOND NITRO ADMINISTERED PT RATES PAIN 5/10.
[2019-06-29 04:50] LABS: APTT 26.2 SECONDS (22.8-39.4); INR 0.91 (0.85-1.17); PROTIME 12.3 SECONDS (11.6-15.0)
--- NOTE | 2019-06-29 04:55 | NUR ---
3RD NITRO ADMINISTERED PT CHEST PAIN WORSE AT 7/10 AT THIS TIME.
[2019-06-29 05:33] VITALS: BP 121/65
[2019-06-29 05:50] LABS: CALC OSMOLALITY 283 mosm/kg (275-300); CALCIUM 8.6 mg/dL (8.5-10.1); CARBON DIOXIDE 28.1 mmol/L (21.0-32.0); CHLORIDE - SERUM 103 mmol/L (98-107); CREATININE - SERUM 1.3 mg/dL (0.6-1.3); GLUCOSE 135 mg/dL (74-106); POTASSIUM - SERUM 3.8 mmol/L (3.5-5.1); SODIUM 140 mmol/L (136-145); UREA NITROGEN 22 mg/dL (7-18); eGFR NON AFRICAN AMERICAN 43 mL/min (90-120)
[2019-06-29 06:08] LABS: ALBUMIN 3.5 g/dL (3.4-5.0); ALKALINE PHOSPHATASE 79 U/L (30-120); ALT (SGPT) 19 U/L (10-68); CKMB 0.3 U/L (0.0-3.6); CREATINE KINASE 40 UL (21-215); PROTEIN - SERUM 6.3 g/dL (6.4-8.2); TROPONIN-I < 0.017 ng/mL (0.000-0.060)
[2019-06-29 06:32] VITALS: BP 153/78
--- NOTE | 2019-06-29 08:08 | NUR ---
REPORT CALLED TO MAMIE BOSS
[2019-06-29 08:12] VITALS: BP 131/74
[2019-06-29 08:40] VITALS: BP 134/72; BMI 26.6
[2019-06-29 08:47] VITALS: Ht 165.1 cm; Wt 72.7 kg
[2019-06-29 09:09] LABS: CHOL - HDL RATIO 3.4 ratio (2.3-4.1); LDL-HDL RATIO 1.8 ratio (1.5-3.5)
--- NOTE | 2019-06-29 11:30 | NUR ---
PATIENT RESTING QUIETLY WITH AT BS. PATIENT IS STABLE AND VSS. PATIENT DENIES ANY NEEDS OR PAIN. WILL CONTINUE TO MONITOR. SR UPX 2 BED IN LOW POSITION AND CALL LIGHT IN REACH.
[2019-06-29 11:34] LABS: CKMB 0.6 U/L (0.0-3.6); CREATINE KINASE 46 UL (21-215); TROPONIN-I < 0.017 ng/mL (0.000-0.060)
--- NOTE | 2019-06-29 14:15 | NUR ---
PATIENT IS STABLE AND VSS. PATIENT DENIES ANY NEEDS OR PAIN. PATIENT TO MANAGER BUDGET VIA HOSPITAL BED ACCOMPANIED BY MANAGER BUDGET TEAM.
--- NOTE | 2019-06-29 15:30 | NUR ---
PATIENT RETURNED TO ROOM VIA HOSPITAL BED ACCOMPANIED BY SECURITY INTELLIGENCE ANALYST TEAM. PATIENT RESTING WITH EYES CLOSED AND BREATHING EVENLY.PATIENT AROUSE TO VOICE EASILY. PATIENT TR BAND TO RT RADIAL. NO BLEEDING , BRUISING OR HEMATOMA NOTED. RT GROIN DRSG C/D/I. NO BLEEDING BRUSING, OR HEMATOMA NOTED. FREQUENT VITALS SET UP. VSS. AT BS. WILL CONTINUE TO MONITOR. SR UP X 2 BED IN LOW POSITION AND CALL LIGHT IN REACH.
--- NOTE | 2019-06-29 17:34 | NUR ---
REMOVED 4CC OF AIR FROM Z BAND. NO BLEEDING NOTED TO SITE. RAISED HOB GRADUALLY AND GROIN SOFT SHOWS NO S/S/ OF HEMATOMA. DRESSING C/D/I.
[2019-06-29 17:38] LABS: CKMB 0.5 U/L (0.0-3.6); CREATINE KINASE 39 UL (21-215); TROPONIN-I < 0.017 ng/mL (0.000-0.060)
--- NOTE | 2019-06-29 18:41 | NUR ---
REMOVED REST OF AIR FROM Z BAND. NO BLEEDING NOTED. PLACED BIG BANDAID ON RIGHT WRIST AND IMMOBILZER IN PLACE. WILL CONTINUE TO MONITOR.
--- NOTE | 2019-06-29 18:55 | NUR ---
PT WENT TO BATHROOM AND VOIDED. RIGHT GROIN SOFT DRESSING C/D/I.
--- NOTE | 2019-06-29 19:15 | NUR ---
RECEIVED BEDSIDE REPORT. PATIENT IS ALERT AND ORIENTED, RESTING COMFORTABLY IN BED. RESPIRATIONS ARE EVEN AND UNLABORED. NO S/S OF DISTRESS. NO C/O PAIN. CALL LIGHT WITHIN REACH. WILL CPOC.
--- NOTE | 2019-06-29 19:53 | NUR ---
PATIENT READY FOR DISCHARGE, WENT OVER DISCHARGE PAPERWORK. PATIENT HAD A HEART CATH TODAY. THEY WENT THROGHT THE RIGHT RADIAL. INSERTION SITE COVERED WITH BAND AID. NO BRUISING, BLEEDING OR HEMATOMA. IV REMOVED, CATHETER INTACT.
--- NOTE | 2019-06-30 09:07 | OP ---
PATIENT NAME: BLOSSOM ALMANZA MEDICAL RECORD: [id number] :48 LOCATION:D.M2 D.2122 ADMISSION DATE:06/29/19 SURGEON: CRUZ OLIVARES MD DATE OF OPERATION: 06/29/2019 PROCEDURE: Left heart catheterization, selective coronary angiography, right femoral artery approach. CATHETERS: A 6-Divehi sheath, 5/4 left and right Antonio, 5/4 pig. The procedure was well tolerated. The patient returned to lao, sheath removed. ExoSeal device was placed. FINDINGS: Left ventriculography in 30-degree WILSON view: Normal wall motion and normal systolic function. CORONARY ANATOMY: LEFT MAIN: Left main is free of disease. LAD: An area of previous stenting is widely patent. No evidence of restenosis. 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 CIRCUMFLEX: Previously placed stent is widely patent. RIGHT CORONARY ARTERY: Dominant artery, gives rise to PDA, free of disease. No evidence of restenosis stent. IMPRESSION: Patent stents. 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 Her LV function remains normal. TRANSINT:[id number] Voice Confirmation ID: [id number] DOCUMENT ID: [id number] CRUZ OLIVARES MD at 0907 CC: [id number] DICTATION DATE: 06/29/19 1526 SENIOR PRINCIPAL: 06/29/19 1800 DIS IN 06/29/19 [address] [place] [address]
--- NOTE | 2019-06-30 09:11 | MORECARE ---
CASE MANAGEMENT DISCHARGE SUMMARY PATIENT: BLOSSOM ALMANZA UNIT: [id number] ADM DATE: 06/29/19 AGE: 69 : [birth year] SEX: F ROOM/BED: D.2121 AUTHOR: TERRY DE LA ROSA PHYSICIAN: REFERRING PHYSICIAN: CRUZ ELLIOTT MD DATE OF SERVICE: 06/30/19 Discharge Plan Patient Name: BLOSSOM ALMANZA [facility] [facility] 1950 Planned Disposition: Home Anticipated Discharge Date: 06/29/19 Discharge Date: 06/29/2019 Expected LOS: 1 Initial Reviewer: [email or web address] Initial Review Date: 06/30/2019 Generated: 06/30/19 10:11 am Patient Name: BLOSSOM ALMANZA Page 38365 at 0911 All edits/amendments must be made on the electronic document DICTATION DATE: 06/30/19910 GERICARE AIDE: ANA PAULA 06/30/19910 RPT#: [id number] DC DATE:06/29/19 STATUS: DIS IN [facility] [address] [place] [address] END OF REPORT
== END 2019-06-29 19:57 | disposition home or self-care (01) ==
LOC: D.ER 03:56 → OBSVTIME 06:46 → D.M2 06:46
PROVIDERS: Family Medicine; ADMIT Family Medicine; ATTEND Family Medicine
DX: I25.110 Atherosclerotic heart disease of native coronary artery with unstable angina pectoris (principal); E78.5 Hyperlipidemia, unspecified; I10 Essential (primary) hypertension; E03.9 Hypothyroidism, unspecified; J45.909 Unspecified asthma, uncomplicated; K21.0 Gastro-esophageal reflux disease with esophagitis; M79.7 Fibromyalgia; F32.9 Major depressive disorder, single episode, unspecified; K29.70 Gastritis, unspecified, without bleeding; I24.9 Acute ischemic heart disease, unspecified; R00.2 Palpitations

== ENCOUNTER 2019-10-18 15:36 | Inpatient (IN) | payer MEDICARE ==
[~2019-10-18] VITALS: Ht 165.1 cm; Wt 71.5 kg
[2019-10-18 17:13] LABS: BASOPHILS 0.5 % (0-2); EOSINOPHILS 2.6 % (0-7); HEMATOCRIT 45.5 % (36.0-48.0); HEMOGLOBIN 14.9 g/dL (12-16); IMMATURE GRANULOCYTES 0.3 % (0-5); LYMPHOCYTES 30.9 % (15-50); MCH 29.9 pg (26.0-34.0); MCHC 32.7 g/dL (31.0-37.0); MCV 91.2 fL (80.0-100.0); MEAN PLATELET VOLUME 9.6 fL (7.4-10.4); NEUTROPHILS 58.7 % (40-80); PLATELET COUNT 282 10x3/uL (130-400); RBC 4.99 10x6/uL (4.00-5.40); RDW 12.8 % (11.5-14.5); WBC 8.8 10x3/uL (4.8-10.8)
[2019-10-18 17:35] LABS: BILIRUBIN NEGATIVE (NEGATIVE); GLUCOSE NEGATIVE (NEGATIVE); KETONE NEGATIVE (NEGATIVE); NITRITE NEGATIVE (NEGATIVE); SPECIFIC GRAVITY 1.015 (1.005-1.020); UROBILINOGEN NORMAL (NORMAL)
[2019-10-18 17:39] LABS: CALC OSMOLALITY 281 mosm/kg (275-300); CALCIUM 9.7 mg/dL (8.5-10.1); CARBON DIOXIDE 30.4 mmol/L (21.0-32.0); CHLORIDE - SERUM 103 mmol/L (98-107); CREATININE - SERUM 1.2 mg/dL (0.6-1.3); GLUCOSE 105 mg/dL (74-106); POTASSIUM - SERUM 4.2 mmol/L (3.5-5.1); SODIUM 140 mmol/L (136-145); UREA NITROGEN 21 mg/dL (7-18); eGFR NON AFRICAN AMERICAN 47 mL/min (90-120)
[2019-10-18 17:46] LABS: ALBUMIN 4.1 g/dL (3.4-5.0); ALKALINE PHOSPHATASE 60 U/L (30-120); ALT (SGPT) 20 U/L (10-68); BILIRUBIN - TOTAL 0.26 mg/dL (0.2-1.3); PROTEIN - SERUM 7.4 g/dL (6.4-8.2)
[2019-10-18 17:50] LABS: LIPASE 6710 U/L (73-393); TROPONIN-I < 0.017 ng/mL (0.000-0.060)
[2019-10-18 19:30] VITALS: BP 131/84
[2019-10-18 19:37] LABS: CHOL - HDL RATIO 3.4 ratio (2.3-4.1); LDL-HDL RATIO 1.7 ratio (1.5-3.5)
[2019-10-18 20:30] VITALS: BP 172/86
[2019-10-18 21:44] VITALS: BP 167/74
--- NOTE | 2019-10-18 22:30 | NUR ---
RECEIVED TO ROOM VIA WHEELCHAIR, ACCOMPANIED BY ER STAFF. A&O X 4, AMBULATES INDEPENDENTLY. NS SET UP AT [facility]. PT REPORTS PAIN OF 5-6/10TO LEFT/MID ABDOMEN. DENIES N/V MAXX. VERBALIZED UNDERSTANDING OF NPO STATUS. INCENTIVE SPIROMETER GIVEN WITH INSTRUCTIONS, SCDs ATTATCHED AND INSTRUCTED PT HOW TO USE. PT REFUSES SCDs CURRENTLY. NO FURTHER NEEDS VOICED AT THIS TIME. CONTINUE PLAN OF CARE.
[2019-10-19] VITALS: BP 164/71
[2019-10-19 00:19] VITALS: BMI 26.6
[2019-10-19 04:00] VITALS: BP 142/69
--- NOTE | 2019-10-19 04:00 | NUR ---
NO TELEMETRY MONITORS AVAILABLE FOR THIS PT PER PATENT SEARCHERADELFO.
[2019-10-19 07:29] LABS: BASOPHILS 0.1 % (0-2); EOSINOPHILS 1.1 % (0-7); HEMATOCRIT 40.4 % (36.0-48.0); HEMOGLOBIN 13.1 g/dL (12-16); IMMATURE GRANULOCYTES 0.3 % (0-5); LYMPHOCYTES 16.3 % (15-50); MCH 29.6 pg (26.0-34.0); MCHC 32.4 g/dL (31.0-37.0); MCV 91.2 fL (80.0-100.0); MEAN PLATELET VOLUME 9.8 fL (7.4-10.4); MONOCYTES 9.6 % (2-11); NEUTROPHILS 72.6 % (40-80); PLATELET COUNT 258 10x3/uL (130-400); RBC 4.43 10x6/uL (4.00-5.40); RDW 12.8 % (11.5-14.5); WBC 9.5 10x3/uL (4.8-10.8)
[2019-10-19 08:06] LABS: INR 1.03 (0.85-1.17); PROTIME 13.4 SECONDS (11.6-15.0)
--- NOTE | 2019-10-19 08:12 | NUR ---
rsting in bed, no distress noted,iv infusing, tree trimming line technician in place, cont to monitor pain, npo
[2019-10-19 08:18] LABS: ALBUMIN 3.7 g/dL (3.4-5.0); BILIRUBIN - TOTAL 0.43 mg/dL (0.2-1.3); CALCIUM 9.1 mg/dL (8.5-10.1); CARBON DIOXIDE 28.4 mmol/L (21.0-32.0); CREATININE - SERUM 1.1 mg/dL (0.6-1.3)
[2019-10-19 08:19] LABS: POTASSIUM - SERUM 3.4 mmol/L (3.5-5.1)
[2019-10-19 08:44] VITALS: BP 148/72
[2019-10-19 09:56] LABS: AMYLASE - SERUM 304 U/L (25-115); LIPASE 3560 U/L (73-393)
--- NOTE | 2019-10-19 10:12 | NUR ---
CRITICAL AMYLASE REPORTED TO DONTRELL 304
[2019-10-19 12:54] VITALS: BP 133/73
[2019-10-19 13:28] VITALS: Ht 165.1 cm; Wt 71.5 kg
[2019-10-19 16:54] VITALS: BP 129/71
[2019-10-19 20:00] VITALS: BP 120/60
--- NOTE | 2019-10-19 20:00 | NUR ---
ALERT SITTING UP IN BED C/O N/V, INSTRUCTED HAS SYLVIA KOEHLER WHICH WILL HOPEFULLY START HELPING SOON, REPORTS GOOD PAIN CONTROL WITH MORPHINE SAWMILL RELIEF WORKER, DENIES NEEDS AT THIS TIME, CALL LIGHT IN REACH
[2019-10-20] VITALS: BP 125/68
[2019-10-20 04:00] VITALS: BP 130/58
[2019-10-20 05:29] LABS: BASOPHILS 0.1 % (0-2); EOSINOPHILS 1.3 % (0-7); HEMATOCRIT 39.8 % (36.0-48.0); HEMOGLOBIN 13.1 g/dL (12-16); IMMATURE GRANULOCYTES 0.2 % (0-5); LYMPHOCYTES 19.1 % (15-50); MCH 29.7 pg (26.0-34.0); MCHC 32.9 g/dL (31.0-37.0); MCV 90.2 fL (80.0-100.0); MEAN PLATELET VOLUME 9.7 fL (7.4-10.4); MONOCYTES 9.6 % (2-11); NEUTROPHILS 69.7 % (40-80); PLATELET COUNT 227 10x3/uL (130-400); RBC 4.41 10x6/uL (4.00-5.40); RDW 12.4 % (11.5-14.5); WBC 8.4 10x3/uL (4.8-10.8)
[2019-10-20 06:15] LABS: ALBUMIN 3.2 g/dL (3.4-5.0); ANION GAP 13.2 mmol/L (8-16); BILIRUBIN - TOTAL 0.43 mg/dL (0.2-1.3); CALCIUM 8.7 mg/dL (8.5-10.1); CARBON DIOXIDE 25.5 mmol/L (21.0-32.0); CREATININE - SERUM 0.9 mg/dL (0.6-1.3); POTASSIUM - SERUM 3.7 mmol/L (3.5-5.1); PROTEIN - SERUM 5.9 g/dL (6.4-8.2)
[2019-10-20 08:40] VITALS: BP 144/72
[2019-10-20 12:41] VITALS: BP 144/70
--- NOTE | 2019-10-20 12:50 | NUR ---
I have reviewed this patient and I concur with the Shift Assessment completed by the Licensed Practical Nurse today this shift.
[2019-10-20 16:21] VITALS: BP 137/62
--- NOTE | 2019-10-20 18:50 | NUR ---
ALERT AND ORIENTED RESTING IN BED WITH EYES OPEN. NO C/O PAIN. NO S/S OF ACUTE DISTRESS NOTED. FAMILY AT BEDSIDE. DENIES ANY NEEDS AT THIS TIME. CALL LIGHT IN REACH. WILL CONTINUE TO MONITOR.
[2019-10-20 20:00] VITALS: BP 146/73
--- NOTE | 2019-10-20 20:00 | NUR ---
ALERT SITTING UP IN BED, DENIES PAIN OR N/V, SEE SHIFT ASSESSMENT, TOLERATING FULL LIQUID DIET, CALL LIGHT IN REACH
[2019-10-21] VITALS: BP 144/73
[2019-10-21 04:00] VITALS: BP 150/70
[2019-10-21 05:38] LABS: BASOPHILS 0.1 % (0-2); EOSINOPHILS 1.7 % (0-7); HEMATOCRIT 33.8 % (36.0-48.0); HEMOGLOBIN 11.3 g/dL (12-16); IMMATURE GRANULOCYTES 0.2 % (0-5); LYMPHOCYTES 25.7 % (15-50); MCH 29.3 pg (26.0-34.0); MCHC 33.4 g/dL (31.0-37.0); MEAN PLATELET VOLUME 9.7 fL (7.4-10.4); MONOCYTES 10.9 % (2-11); NEUTROPHILS 61.4 % (40-80); PLATELET COUNT 238 10x3/uL (130-400); RBC 3.86 10x6/uL (4.00-5.40); RDW 12.3 % (11.5-14.5); WBC 8.1 10x3/uL (4.8-10.8)
[2019-10-21 05:40] LABS: MCV 87.6 fL (80.0-100.0)
[2019-10-21 06:09] LABS: ALBUMIN 2.7 g/dL (3.4-5.0); ANION GAP 12.2 mmol/L (8-16); BILIRUBIN - TOTAL 0.33 mg/dL (0.2-1.3); CARBON DIOXIDE 24.3 mmol/L (21.0-32.0); CREATININE - SERUM 0.9 mg/dL (0.6-1.3); MAGNESIUM - SERUM 1.8 mg/dL (1.8-2.4); POTASSIUM - SERUM 3.5 mmol/L (3.5-5.1); PROTEIN - SERUM 5.8 g/dL (6.4-8.2)
[2019-10-21 06:11] LABS: CALCIUM 8.8 mg/dL (8.5-10.1)
[2019-10-21 08:49] VITALS: BP 139/83
--- NOTE | 2019-10-21 12:00 | NUR ---
PT INFORMED OF UPCOMING DISCHARGE. ASKED WHEN IT WOULD HAPPEN. WAS UNABLE TO PROVIDE A TIME. CL IN REACH. WCTM
--- NOTE | 2019-10-21 13:22 | MORECARE ---
CASE MANAGEMENT DISCHARGE SUMMARY PATIENT: BLOSSOM ALMANZA UNIT: [id number] ADM DATE: 10/18/19 AGE: 69 : [birth year] SEX: F ROOM/BED: D.2212 AUTHOR: TERRY DE LA ROSA PHYSICIAN: REFERRING PHYSICIAN: MATEO RAMIREZ MD DATE OF SERVICE: 10/21/19 Discharge Plan Patient Name: BLOSSOM ALMANZA [facility] [facility] 1950 Planned Disposition: Home or Self Care Anticipated Discharge Date: Discharge Date: Expected LOS: Initial Reviewer: [email or web address] Initial Review Date: 10/18/2019 Generated: 10/21/19 2:22 pm DCPIA - Discharge Planning Initial Assessment Updated by [email or web address]: Radha Sung on 10/21/19 1:19 pm * Is the patient Alert and Oriented? Yes * How many steps to enter\exit or inside your home? * PCP DR CARVER * Pharmacy [facility] * Preadmission Environment Home with Family * ADLs Independent * Equipment None * List name and contact numbers for known caregivers / representatives who currently or will assist patient after discharge: AGUS ( ) [phone] * Verbal permission to speak to the caregivers and representatives has been obtained from the patient. N/A * Community resources currently utilized None * Additional services required to return to the preadmission environment? No * Can the patient safely return to the preadmission environment? Yes * Has this patient been hospitalized within the prior 30 days at any hospital? No Patient Name: BLOSSOM ALMANZA Page 46594 at 1322 All edits/amendments must be made on the electronic document DICTATION DATE: 10/21/19 1322 BUSINESS INSIGHT AND ANALYTICS MANAGER: ANA PAULA 10/21/19 1322 RPT#: [id number] DC DATE: STATUS: ADM IN [facility] [address] [place] [address] END OF REPORT
--- NOTE | 2019-10-21 13:30 | MORECARE ---
CASE MANAGEMENT DISCHARGE SUMMARY PATIENT: BLOSSOM ALMANZA UNIT: [id number] ADM DATE: 10/18/19 AGE: 69 : 49 SEX: F ROOM/BED: D.2212 AUTHOR: TERRY DE LA ROSA PHYSICIAN: REFERRING PHYSICIAN: MATEO RAMIREZ MD DATE OF SERVICE: 10/21/19 Discharge Plan Patient Name: BLOSSOM ALMANZA Facility: [facility]:[place] : 1950 Planned Disposition: Home or Self Care Anticipated Discharge Date: Discharge Date: Expected LOS: Initial Reviewer: [id number] Initial Review Date: 10/18/2019 Generated: 10/21/19 2:29 pm Comments DCP- Discharge Planning Updated by [email or web address]: Radha Snug on 10/21/19 12:[address] Patient Name: BLOSSOM ALMANZA Admission Status: ER Accout number: [id number] Admission Date: 10-18-2019 : 1950 Admission Diagnosis:UNSPECIFIED ABDOMINAL PAIN Attending: MARY JO RAMIREZ Current LOS: 3 Anticipated DC Date: Planned Disposition: Home or Self Care Primary Insurance: [facility] MEDICARE SOLUTIONS Discharge Planning Comments: CM met with patient to complete initial dc planning assessment. CM educated patient on the CM role and verbal consent given by patient to complete assessment. Patient lives at home with her where she was independent with her care. At discharge patient plans to return home and feels this is a safe discharge. CM discussed availability of home health, rehab services, and medical equipment. Patient denied known discharge needs at this time. Her will be her light truck driver home. CM will continue to follow and will assist as needed with dc plans/needs. Circle Edger: Radha Sung DCPIA - Discharge Planning Initial Assessment Updated by [email or web address]: Radha Sung on 10/21/19 1:19 pm * Is the patient Alert and Oriented? Yes * How many steps to enter\exit or inside your home? * PCP DR CARVER * Pharmacy [facility] * Preadmission Environment Home with Family * ADLs Independent * Equipment None * List name and contact numbers for known caregivers / representatives who currently or will assist patient after discharge: AGUS ( ) [phone] * Verbal permission to speak to the caregivers and representatives has been obtained from the patient. N/A * Community resources currently utilized None * Additional services required to return to the preadmission environment? No * Can the patient safely return to the preadmission environment? Yes * Has this patient been hospitalized within the prior 30 days at any hospital? No Last DP export: 10/21/19 12:22 p Patient Name: BLOSSOM ALMANZA Page 19912 at 1330 All edits/amendments must be made on the electronic document DICTATION DATE: 10/21/19 132 COMPLIANCE TESTER: ANA PAULA 10/21/19 1329 RPT#: [id number] DC DATE: STATUS: ADM IN [facility] [address] [place] [address] END OF REPORT
--- NOTE | 2019-10-21 14:00 | MORECARE ---
CASE MANAGEMENT DISCHARGE SUMMARY PATIENT: BLOSSOM ALMANZA UNIT: [id number] ADM DATE: 10/18/19 AGE: 69 : [birth year] SEX: F ROOM/BED: D.2212 AUTHOR: TERRY DE LA ROSA PHYSICIAN: REFERRING PHYSICIAN: MATEO RMAIREZ MD DATE OF SERVICE: 10/21/19 Discharge Plan Patient Name: BLOSSOM ALMANZA Facility: [facility]:[place] : 1950 Planned Disposition: Home or Self Care Anticipated Discharge Date: Discharge Date: Expected LOS: Initial Reviewer: [email or web address] Initial Review Date: 10/18/2019 Generated: 10/21/19 3:00 pm Comments DCP- Discharge Planning Updated by [email or web address]: Radha Sung on 10/21/19 12:[address] IMM served and explained DCP- Discharge Planning Updated by [email or web address]: Radha Sung on 10/21/19 12:[address] I spoke with ART/ [place] ([phone]) to see if there was any assistance that she would qualify for. Nicole directed me to their assistance program. I printed off 2 copies and went and explained it to her and her and directions on how to apply. They will apply and hopefully get approved. I called [facility] and Art would cost her 312.00 & [employer] $528.00 per month per [place]. The patient can not afford that. DCP- Discharge Planning Updated by [email or web address]: Radha Sung on 10/21/19 12:[address] Patient Name: BLOSSOM ALMANZA Admission Status: ER Accout number: [id number] Admission Date: 10-18-2019 : 1950 Admission Diagnosis:UNSPECIFIED ABDOMINAL PAIN Attending: MARY JO RAMIREZ Current LOS: 3 Anticipated DC Date: Planned Disposition: Home or Self Care Primary Insurance: [facility] MEDICARE SOLUTIONS Discharge Planning Comments: CM met with patient to complete initial dc planning assessment. CM educated patient on the CM role and verbal consent given by patient to complete assessment. Patient lives at home with her where she was independent with her care. At discharge patient plans to return home and feels this is a safe discharge. CM discussed availability of home health, rehab services, and medical equipment. Patient denied known discharge needs at this time. 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 CM will continue to follow and will assist as needed with dc plans/needs. Tower Helper: Radha Sung DCPIA - Discharge Planning Initial Assessment Updated by [id number]: Radha Sung on 10/21/19 1:19 pm * Is the patient Alert and Oriented? Yes * How many steps to enter\exit or inside your home? * PCP DR CARVER * Pharmacy [facility] [address] [facility] * Preadmission Environment Home with Family * ADLs Independent * Equipment None * List name and contact numbers for known caregivers / representatives who currently or will assist patient after discharge: [employer] ( ) [phone] * Verbal permission to speak to the caregivers and representatives has been obtained from the patient. N/A * Community resources currently utilized None * Additional services required to return to the preadmission environment? No * Can the patient safely return to the preadmission environment? Yes * Has this patient been hospitalized within the prior 30 days at any hospital? No Coverage Notice Reviewer: [id number] - Radha Sung Notice Issued Date-Time: 10/21/2019 13:00 Notice Type: IM Discharge Notice Notice Delivered To: Patient Relationship to Patient: [place] Name: Delivery Method: HAND - Hand Delivered Alison Days: Prior Verbal Notification: Recipient Understood Notice: Yes Recipient Signature: Yes Med Rec Note Co-signed by Attending: Coverage Notice Comment: Last DP export: 10/21/19 12:30 p Patient Name: BLOSSOM ALMANZA Page [id number] at 1400 All edits/amendments must be made on the electronic document DICTATION DATE: 10/21/19 1400 CUSTOMER SERVICE ASSISTANT: ANA PAULA 10/21/19 1400 RPT#: [id number] DC DATE: STATUS: ADM IN [facility] [address] [place] [address] END OF REPORT
--- NOTE | 2019-10-21 14:57 | NUR ---
IV THERAPY DC'ED FROM RIGHT HAND TIP INTACT. AND PT VERBALIZED UNDERSTANDING OF DISCHARGE INSTRUCTIONS. PT WHEELED TO FRONT ENTRANCE VIA EMERALD ALBA.
--- NOTE | 2019-10-22 15:04 | MORECARE ---
CASE MANAGEMENT DISCHARGE SUMMARY PATIENT: BLOSSOM ALMANZA UNIT: [id number] ADM DATE: 10/18/19 AGE: 69 : [birth year] SEX: F ROOM/BED: D.2212 AUTHOR: TERRY DE LA ROSA PHYSICIAN: REFERRING PHYSICIAN: MATEO RAMIREZ MD DATE OF SERVICE: 10/22/19 Discharge Plan Patient Name: BLOSSOM ALMANZA Facility: [facility]:[place] : 1950 Planned Disposition: Home or Self Care Anticipated Discharge Date: Discharge Date: 10/21/2019 Expected LOS: Initial Reviewer: [email or web address] Initial Review Date: 10/18/2019 Generated: 10/22/19 4:03 pm Comments DCP- Discharge Planning Updated by [email or web address]: Radha Sung on 10/21/19 12:[address] IMM served and explained DCP- Discharge Planning Updated by [email or web address]: Radha Sung on 10/21/19 12:[address] I spoke with ART/ [place] ([phone]) to see if there was any assistance that she would qualify for. Nicole directed me to their assistance program. I printed off 2 copies and went and explained it to her and her and directions on how to apply. They will apply and hopefully get approved. I called [facility] and Art would cost her 312.00 & [employer] $528.00 per month per [place]. The patient can not afford that. DCP- Discharge Planning Updated by [email or web address]: Radha Sung on 10/21/19 12:[address] Patient Name: BLOSSOM ALMANZA Admission Status: ER Accout number: [id number] Admission Date: 10-18-2019 : 1950 Admission Diagnosis:UNSPECIFIED ABDOMINAL PAIN Attending: MARY JO RAMIREZ Current LOS: 3 Anticipated DC Date: Planned Disposition: Home or Self Care Primary Insurance: [facility] MEDICARE SOLUTIONS Discharge Planning Comments: CM met with patient to complete initial dc planning assessment. CM educated patient on the CM role and verbal consent given by patient to complete assessment. Patient lives at home with her where she was independent with her care. At discharge patient plans to return home and feels this is a safe discharge. CM discussed availability of home health, rehab services, and medical equipment. Patient denied known discharge needs at this time. 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 CM will continue to follow and will assist as needed with dc plans/needs. Survey Chief: Radha Sung DCPIA - Discharge Planning Initial Assessment Updated by [email or web address]: Radha Sung on 10/21/19 1:19 pm * Is the patient Alert and Oriented? Yes * How many steps to enter\exit or inside your home? * PCP DR CARVER * Pharmacy [facility] [address] [facility] * Preadmission Environment Home with Family * ADLs Independent * Equipment None * List name and contact numbers for known caregivers / representatives who currently or will assist patient after discharge: AGUS ( ) [phone] * Verbal permission to speak to the caregivers and representatives has been obtained from the patient. N/A * Community resources currently utilized None * Additional services required to return to the preadmission environment? No * Can the patient safely return to the preadmission environment? Yes * Has this patient been hospitalized within the prior 30 days at any hospital? No Coverage Notice Reviewer: [id number] - Radha Sung Notice Issued Date-Time: 10/21/2019 13:00 Notice Type: IM Discharge Notice Notice Delivered To: Patient Relationship to Patient: Child Care Attendant Name: Delivery Method: HAND - Hand Delivered Alison Days: Prior Verbal Notification: Recipient Understood Notice: Yes Recipient Signature: Yes Med Rec Note Co-signed by Attending: Coverage Notice Comment: Last DP export: 10/21/19 1:00 p Patient Name: BLOSSOM ALMANZA Page [id number] at 1504 All edits/amendments must be made on the electronic document DICTATION DATE: 10/22/19 1503 EMERGENCY COMMUNICATIONS OFFICER: ANA PAULA 10/22/19 1503 RPT#: [id number] DC DATE:10/21/19 STATUS: DIS IN [facility] [address] [place] [address] END OF REPORT
== END 2019-10-21 14:57 | disposition home or self-care (01) | DRG 440 ==
LOC: D.ER 15:36 → D.MS 21:53
PROVIDERS: Family Medicine; ADMIT Emergency Medicine; ATTEND Emergency Medicine
DX: K85.90 Acute pancreatitis without necrosis or infection, unspecified (principal); I10 Essential (primary) hypertension; J44.9 Chronic obstructive pulmonary disease, unspecified; K21.9 Gastro-esophageal reflux disease without esophagitis; E03.9 Hypothyroidism, unspecified; I25.10 Atherosclerotic heart disease of native coronary artery without angina pectoris; E78.5 Hyperlipidemia, unspecified; F32.9 Major depressive disorder, single episode, unspecified; M79.7 Fibromyalgia

== ENCOUNTER 2019-11-02 10:30 | Outpatient (CLI) | payer MEDICARE ==
[2019-10-19 13:28] VITALS: BMI 26.2
== END 2019-11-02 11:30 | disposition home or self-care (01) ==
LOC: D.MAMMO 10:30
PROVIDERS: ATTEND Nurse Practitioner
DX: N64.4 Mastodynia (principal)

== ENCOUNTER 2019-12-20 13:18 | Emergency (ER) | payer MEDICARE ==
[~2019-12-20] VITALS: Ht 165.1 cm; Wt 70.5 kg
[2019-12-20 13:23] VITALS: Ht 165.1 cm; Wt 70.5 kg
[2019-12-20 13:50] LABS: BILIRUBIN NEGATIVE (NEGATIVE); KETONE NEGATIVE (NEGATIVE); NITRITE NEGATIVE (NEGATIVE); UROBILINOGEN NORMAL mg/dL (< 2)
[2019-12-20 14:22] LABS: BASOPHILS 0.6 % (0-2); HEMATOCRIT 43.4 % (36.0-48.0); HEMOGLOBIN 14.3 g/dL (12-16); IMMATURE GRANULOCYTES 0.1 % (0-5); LYMPHOCYTES 34.5 % (15-50); MCH 29.2 pg (26.0-34.0); MCHC 32.9 g/dL (31.0-37.0); MCV 88.8 fL (80.0-100.0); MEAN PLATELET VOLUME 9.5 fL (7.4-10.4); MONOCYTES 7.3 % (2-11); NEUTROPHILS 50.5 % (40-80); RBC 4.89 10x6/uL (4.00-5.40); RDW 12.7 % (11.5-14.5); WBC 7.2 10x3/uL (4.8-10.8)
[2019-12-20 14:25] LABS: PLATELET COUNT 297 10x3/uL (130-400)
[2019-12-20 14:27] LABS: CALC OSMOLALITY 275 mosm/kg (275-300); CALCIUM 9.5 mg/dL (8.5-10.1); CARBON DIOXIDE 28.1 mmol/L (21.0-32.0); CHLORIDE - SERUM 101 mmol/L (98-107); CREATININE - SERUM 1.5 mg/dL (0.6-1.3); GLUCOSE 115 mg/dL (74-106); POTASSIUM - SERUM 4.5 mmol/L (3.5-5.1); SODIUM 137 mmol/L (136-145); UREA NITROGEN 16 mg/dL (7-18); eGFR NON AFRICAN AMERICAN 36 mL/min (90-120)
[2019-12-20 14:36] LABS: ALKALINE PHOSPHATASE 54 U/L (30-120); ALT (SGPT) 16 U/L (10-68); AMYLASE - SERUM 33 U/L (25-115); BILIRUBIN - TOTAL 0.46 mg/dL (0.2-1.3); LIPASE 87 U/L (73-393); PROTEIN - SERUM 7.7 g/dL (6.4-8.2)
[2019-12-20 14:50] LABS: TROPONIN-I < 0.017 ng/mL (0.000-0.060)
[2019-12-20] MEDS ORDERED: LEVSIN/ANASP0.125 MG PO (16:26)
[2019-12-20] MEDS ORDERED: PROTONIX40 MG PO (16:26)
[2019-12-20 18:26] VITALS: BP 137/68
== END 2019-12-20 18:26 | disposition home or self-care (01) ==
LOC: D.ER 13:18
PROVIDERS: Family Medicine
DX: R10.9 Unspecified abdominal pain (principal); E07.9 Disorder of thyroid, unspecified; I25.2 Old myocardial infarction; I10 Essential (primary) hypertension; E78.5 Hyperlipidemia, unspecified; J45.909 Unspecified asthma, uncomplicated; K21.9 Gastro-esophageal reflux disease without esophagitis

== ENCOUNTER 2019-12-23 19:13 | Emergency (ER) | payer MEDICARE ==
[~2019-12-23] VITALS: Ht 165.1 cm; Wt 70.5 kg
[~2019-12-23 19:13] MED LIST changes: +LEVSIN/ANASP0.125 MG PO
[2019-12-23 19:29] VITALS: Ht 165.1 cm; Wt 70.5 kg
[2019-12-23 20:06] LABS: BASOPHILS 0.2 % (0-2); EOSINOPHILS 5.8 % (0-7); HEMATOCRIT 43.2 % (36.0-48.0); HEMOGLOBIN 14.2 g/dL (12-16); IMMATURE GRANULOCYTES 0.2 % (0-5); LYMPHOCYTES 21.4 % (15-50); MCH 29.2 pg (26.0-34.0); MCHC 32.9 g/dL (31.0-37.0); MCV 88.9 fL (80.0-100.0); MEAN PLATELET VOLUME 9.7 fL (7.4-10.4); MONOCYTES 8.8 % (2-11); NEUTROPHILS 63.6 % (40-80); PLATELET COUNT 272 10x3/uL (130-400); RBC 4.86 10x6/uL (4.00-5.40); RDW 12.7 % (11.5-14.5); WBC 8.7 10x3/uL (4.8-10.8)
[2019-12-23 20:19] LABS: CALC OSMOLALITY 275 mosm/kg (275-300); CALCIUM 9.4 mg/dL (8.5-10.1); CARBON DIOXIDE 27.2 mmol/L (21.0-32.0); CHLORIDE - SERUM 101 mmol/L (98-107); CREATININE - SERUM 1.6 mg/dL (0.6-1.3); POTASSIUM - SERUM 3.9 mmol/L (3.5-5.1); SODIUM 135 mmol/L (136-145); UREA NITROGEN 17 mg/dL (7-18); eGFR NON AFRICAN AMERICAN 34 mL/min (90-120)
[2019-12-23 20:28] LABS: ALBUMIN 3.8 g/dL (3.4-5.0); ALKALINE PHOSPHATASE 57 U/L (30-120); ALT (SGPT) 20 U/L (10-68); AMYLASE - SERUM 35 U/L (25-115); BILIRUBIN - TOTAL 0.23 mg/dL (0.2-1.3); LIPASE 119 U/L (73-393); TROPONIN-I < 0.017 ng/mL (0.000-0.060)
[2019-12-23 20:33] LABS: GLUCOSE 178 mg/dL (74-106)
[2019-12-23 20:48] LABS: BILIRUBIN NEGATIVE (NEGATIVE); KETONE NEGATIVE (NEGATIVE); NITRITE NEGATIVE (NEGATIVE); UROBILINOGEN NORMAL mg/dL (< 2)
[2019-12-23] MEDS ORDERED: PROTONIX40 MG PO (21:02)
[2019-12-23] MEDS ORDERED: ULTRAM50 MG PO (21:02)
[2019-12-23 21:25] VITALS: BP 125/65
== END 2019-12-23 21:25 | disposition home or self-care (01) ==
LOC: D.ER 19:13
PROVIDERS: Emergency Medicine
DX: K27.9 Peptic ulcer, site unspecified, unspecified as acute or chronic, without hemorrhage or perforation (principal); E07.9 Disorder of thyroid, unspecified; I25.2 Old myocardial infarction; J45.909 Unspecified asthma, uncomplicated; K21.9 Gastro-esophageal reflux disease without esophagitis; I10 Essential (primary) hypertension; E78.5 Hyperlipidemia, unspecified; R10.12 Left upper quadrant pain; R11.0 Nausea

== ENCOUNTER 2020-06-15 20:58 | Emergency (ER) | payer MEDICARE ==
[~2020-06-15] VITALS: Ht 165.1 cm; Wt 69.1 kg
[2020-06-15 21:17] VITALS: Ht 165.1 cm; Wt 69.1 kg
[2020-06-15 22:10] LABS: BASOPHILS 0.3 % (0-2); EOSINOPHILS 2.2 % (0-7); HEMATOCRIT 42.5 % (36.0-48.0); IMMATURE GRANULOCYTES 0.3 % (0-5); LYMPHOCYTE ABS# 2.52 10x3/uL (1.18-3.74); LYMPHOCYTES 35.3 % (15-50); MCH 29.8 pg (26.0-34.0); MCHC 32.9 g/dL (31.0-37.0); MCV 90.4 fL (80.0-100.0); MEAN PLATELET VOLUME 9.2 fL (7.4-10.4); MONOCYTES 9.5 % (2-11); NEUTROPHIL ABS# 3.74 10x3/uL (1.56-6.13); NEUTROPHILS 52.4 % (40-80); PLATELET COUNT 271 10x3/uL (130-400); RDW 12.8 % (11.5-14.5); WBC 7.1 10x3/uL (4.8-10.8)
[2020-06-15 22:19] LABS: ANION GAP 10.6 mmol/L (8-16); CALCIUM 9.4 mg/dL (8.5-10.1); CARBON DIOXIDE 28.8 mmol/L (21.0-32.0); CREATININE - SERUM 1.5 mg/dL (0.6-1.3); POTASSIUM - SERUM 4.4 mmol/L (3.5-5.1)
[2020-06-15 22:25] LABS: ALBUMIN 3.6 g/dL (3.4-5.0); BILIRUBIN - TOTAL 0.23 mg/dL (0.2-1.3); PROTEIN - SERUM 6.9 g/dL (6.4-8.2)
[2020-06-16 01:24] LABS: BILIRUBIN NEGATIVE (NEGATIVE); KETONE NEGATIVE (NEGATIVE); NITRITE NEGATIVE (NEGATIVE); UROBILINOGEN NORMAL mg/dL (< 2)
[2020-06-16 05:29] VITALS: BP 151/77
== END 2020-06-16 05:35 | disposition home or self-care (01) ==
LOC: D.ER 20:58
PROVIDERS: Family Medicine
DX: R10.12 Left upper quadrant pain (principal); I10 Essential (primary) hypertension; E78.5 Hyperlipidemia, unspecified; I25.2 Old myocardial infarction; K21.9 Gastro-esophageal reflux disease without esophagitis; E03.9 Hypothyroidism, unspecified